=== PATIENT | female | born 1955 | race Caucasian/White ===

== ENCOUNTER → 2017-11-29 | Outpatient (CLI) | payer OTHER ==
--- NOTE | 2017-11-29 19:00 | Diagnostic Imaging Report ---
INDICATION: Right bilateral breast pain. EXAMINATION: Limited bilateral breast ultrasound. FINDINGS: By history, patient has pain in each axilla. The diagnostic mammogram performed earlier today failed to show any sign of acute abnormality or of malignancy. On this exam, there is no discrete solid or cystic mass within either axilla. There is no sign of an abscess either. IMPRESSION: There is no evidence for malignancy and there is no acute abnormality to account for the patient's pain. Clinical followup is recommended. ACR BI-RADS Category 1: Negative. Result letter will be mailed to the patient. Note: At least 10% of breast cancer is not imaged by mammography. Dictated by: Dictated on workstation # [id number]
--- NOTE | 2017-11-29 19:10 | Diagnostic Imaging Report ---
EXAMINATION: Digital mammogram bilateral diagnostic with 3D tomosynthesis. INDICATION: Bilateral axillary pain. COMPARISON: This study was compared to the prior exam of 12/21/2009. At this time, the patient does complain of pain in both axillae. The current study was also evaluated with a Computer-Aided Detection (CAD) system. FINDINGS: The fibroglandular tissue in each breast is heterogeneously dense. This does limit the sensitivity of this exam. Overall, there does not appear to have been any significant change when compared to the previous study. There is no primary or secondary sign of malignancy noted. There is no abnormality involving the axillae to account for the patient's breast pain. Even so, ultrasound would be recommended for further evaluation. IMPRESSION: There is no evidence for malignancy or for an acute abnormality of either breast. Ultrasound would be recommended for further study, however. ACR BI-RADS Category 0: Incomplete. (Needs additional imaging evaluation). Result letter will be mailed to the patient. Note: At least 10% of breast cancer is not imaged by mammography. Dictated by: Dictated on workstation # [id number]
== END ==
LOC: RAD 12:25
PROVIDERS: ATTEND Nurse Practitioner Family
DX: N64.4 Mastodynia (principal)
CPT/HCPCS: 76642; 77066

== ENCOUNTER 2020-04-16 18:11 | Inpatient (IN) | payer SELFPAY ==
[~2020-04-16] VITALS: Ht 154.9 cm; Wt 87.9 kg
--- NOTE | 2020-04-16 19:26 | ED Respiratory ---
General Chief Complaint: Respiratory Problems Stated Complaint: DX W/ PNEUMONIA/NOT GETTING BETTER Nursing Triage Note: PT AMBULATE TO ROOM 08. PT WAS CONTACTED BY THE [facility] AND TOLD TO COME TO ED BECAUSE THE "SPOT ON HER LUNG HAS GOTTEN BIGGER". PT STATES THAT SHE WAS TOLD THAT THE PNEUMONIA HAS GOTTEN WORSE AND THAT SHE SHOULD COME TO THE ED. PT REPORTS NEG COVID TEST ON SUNDAY. 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--GIVES MUCH CONFLICTING INFORMATION AND CONSTANTLY CHANGING HER STORY) History of Present Illness Date Seen by Provider: Apr 16, 2020 Time Seen by Provider: 19:05 Initial Comments PT ARRIVES VIA POV FROM HOME STATES "I DON'T FEEL SICK, I JUST HAVE A HARD TIME CATCHING MY BREATH" SYMPTOMS ONGOING FOR A WEEK ( LATER STATES 2 WEEKS, THEN LATER STATES IT HAS BEEN GOING ON "SINCE THE " HAS BEEN SEEN AT [facility] ( AGAIN GIVES EXTREMELY CONFLICTING INFORMATION ABOUT WHEN SHE WAS SEEN, WHAT TESTS WERE DONE AND WHAT TREATMENTS HAVE BEEN DONE ) --STATES "I'VE BEEN ON 3 ROUNDS OF ANTIBIOTICS" BUT HAS NO IDEA WHAT THE MEDICATIONS ARE. PT STATES SOMEONE CALLED HER AND TOLD HER TO COME HERE BECAUSE HER PNEUMONIA WAS WORSE. NO FEVER/SWEATS/CHILLS NO LOSS OF TASTE OR SMELL NO GI SYMPTOMS NO SORE THROAT NO NASAL CONGESTION NO SIGNIFICANT COUGH NO CHEST PAIN SPOKE WITH [employer] SUPERVISOR WITH [facility] AND OBTAINED THE FOLLOWIN03/26/20--PT CALLED, AND WAS HAVING COUGH AND SHORTNESS OF BREATH AND OUTPATIENT CXR WAS ORDERED. WAS DX WITH LEFT SIDED PNEUMONIA. 03/30/20--WAS PRESCRIBED LEVAQUIN 750 MG DAILY X 5 DAYS 04/06/20--PT WAS SEEN IN CLINIC FOR FOLLOW UP. WAS PRESCRIBED AUGMENTIN X 7 DAYS AND ZITHROMAX Z-PACK 04/14/20--PT WAS SEEN IN CLINIC FOR FOLLOW UP. SHE COMPLAINED OF SORE THROAT, FEVER OF 101, DECREASED ENERGY, SHORTNESS OF BREATH, NAUSEA. HAD DENIED CHANGE IN TASTE OR SMELL. PT HAD NEGATIVE RAPID COVID-19 TEST, NEGATIVE FLU TEST. HAD REPEAT CXR DONE, WAS REFERRED TO PULMONOLOGY. CXR SHOWED WORSENING OF INFILTRATES IN LEFT LUNG. PT HAS CALLED [facility] A MULTITUDE OF TIMES THIS MONTH, AND HAS MISSED AT LEAST 3 APPOINTMENTS BETWEEN 03/30 AND 04/13/20 FOR THIS PROBLEM. PT DOES STATE SHE SMOKED 2 PPD, QUIT IN 2003. ADDITIONALLY, ON QUESTIONING PT ABOUT ANY MEDICAL PROBLEMS OF ANY KIND, SHE STATES SHE "DOESN'T HAVE ANY" AND STATES SHE "DOESN'T TAKE ANY MEDICATION" PT DOES HAVE A LIST OF MEDICATIONS ON HER PHONE, WHICH INCLUDE LEVEMIR, METFORMIN, TRULICITY ( STATES THEN THAT SHE ALSO TAKES NOVOLOG ), LISINOPRIL, ATORVASTATIN. BACLOFEN, GABAPENTIN, OTHERS. PT ALSO HAS HER BLOOD SUGAR READINGS ON HER PHONE, WITH MOST IN THE 200'S TO 300'S RANGE. PCP:[facility] Allergies and Home Medications Allergies Coded Allergies: No Known Drug Allergies (Unverified , 04/16/20) Home Medications Cyanocobalamin (Vitamin B-12) 500 Mcg Lozenge, 500 MCG PO DAILY, (Reported) Gabapentin 300 Mg/6 Ml Solution, 300 MG PO HS PRN for PRN, (Reported) Insulin Aspart 100 Unit/1 Ml Susp, 25 UNIT SQ AC, (Reported) Insulin Determir 1,000 Units/10 Ml Soln, 35 UNITS SQ BID, (Reported) Lisinopril 2.5 Mg Tablet, 2.5 MG PO DAILY, (Reported) Metformin HCl 1,000 Mg Tablet, 1,000 MG PO BID, (Reported) Patient Home Medication List Home Medication List Reviewed: Yes Review of Systems Review of Systems Constitutional: see HPI EENTM: see HPI Respiratory: see HPI Cardiovascular: no symptoms reported Gastrointestinal: see HPI Genitourinary: no symptoms reported Musculoskeletal: no symptoms reported Skin: no symptoms reported Psychiatric/Neurological: See HPI Past Ikgyodi-Onkkmc-Gqjfhr Hx Past Med/Social Hx: Reviewed and Corrections made Patient Social History Alcohol Use: Denies Use Drug of Choice: DENIES Smoking Status: Former Smoker (2 PPD, QUIT 2003) Type Used: Cigarettes 2nd Hand Smoke Exposure: No Recent Infectious Disease Expo: No Recent Hopitalizations: No Seasonal Allergies Seasonal Allergies: Yes Past Medical History Surgeries: Yes Adenoidectomy, Appendectomy, Hysterectomy, Tonsillectomy Respiratory: No (SMOKED 2 PPD, QUIT 2003) Cardiac: Yes High Cholesterol, Hypertension Neurological: No HEALTH OFFICER History: Hysterectomy, Menopausal Genitourinary: No Gastrointestinal: No Musculoskeletal: Yes Chronic Back Pain, Fractures Endocrine: Yes (OBESITY) Diabetes, Insulin dep HEENT: No Cancer: No Psychosocial: Yes Anxiety Integumentary: No Blood Disorders: No Physical Exam Vital Signs - First Documented 04/16/20 19:01 Pulse 83 Resp 16 B/P (MAP) 132/84 (100) O2 Delivery Room Air Capillary Refill : Less Than 3 Seconds Height: '" Weight: lbs. oz. kg; 38.00 BMI Method: General Appearance: WD/WN, no apparent distress, other (TALKS WITHOUT DIFFICULTY. ON PHONE MOST OF ER VISIT) HEENT: PERRL/EOMI, normal ENT inspection Neck: normal inspection Respiratory: no respiratory distress, no accessory muscle use, rales (LEFT MID CHEST); No wheezing Cardiovascular: regular rate, rhythm, no murmur Gastrointestinal: non tender, soft Extremities: normal inspection, no pedal edema, normal capillary refill Neurologic/Psychiatric: no motor/sensory deficits, alert, normal mood/affect, other (GROSSLY ORIENTED, BUT WITH POOR MEMORY AND GIVES MUCH CONFLICTING INFORMATION. ) Skin: normal color, warm/dry Focused Exam Lactate Level 04/16/20 19:19: Lactic Acid Level 1.37 Lactic Acid Level Laboratory Tests Test 04/16/20 19:19 Lactic Acid Level 1.37 MMOL/L (0.50-2.00) Progress/Results/Core Measures Suspected Sepsis Recent Fever Within 48 Hours: No Infection Criteria Present: None New/Unexplained Altered Menta: No Sepsis Screen: No Definite Risk SIRS Temperature: Pulse: 83 Respiratory Rate: 16 Laboratory Tests 04/16/20 19:19: White Blood Count 12.8H Blood Pressure 132 /84 Mean: 100 04/16/20 19:19: Lactic Acid Level 1.37 Laboratory Tests 04/16/20 19:19: Creatinine 1.21, INR Comment 0.9, Platelet Count 407H, Total Bilirubin 0.6 Results/Orders Lab Results Laboratory Tests Test 04/16/20 19:19 04/16/20 19:23 Range/Units White Blood Count 12.8 H 4.3-11.0 10^3/uL Red Blood Count 5.04 3.80-5.11 10^6/uL Hemoglobin 14.0 11.5-16.0 g/dL Hematocrit 44 35-52 % Mean Corpuscular Volume 87 80-99 fL Mean Corpuscular Hemoglobin 28 25-34 pg Mean Corpuscular Hemoglobin Concent 32 32-36 g/dL Red Cell Distribution Width 13.2 10.0-14.5 % Platelet Count 407 H 130-400 10^3/uL Mean Platelet Volume 10.9 9.0-12.2 fL Immature Granulocyte % (Auto) 1 % Neutrophils (%) (Auto) 67 42-75 % Lymphocytes (%) (Auto) 25 12-44 % Monocytes (%) (Auto) 6 0-12 % Eosinophils (%) (Auto) 1 0-10 % Basophils (%) (Auto) 0 0-10 % Neutrophils # (Auto) 8.6 H 1.8-7.8 10^3/uL Lymphocytes # (Auto) 3.2 1.0-4.0 10^3/uL Monocytes # (Auto) 0.7 0.0-1.0 10^3/uL Eosinophils # (Auto) 0.2 0.0-0.3 10^3/uL Basophils # (Auto) 0.1 0.0-0.1 10^3/uL Immature Granulocyte # (Auto) 0.1 0.0-0.1 10^3/uL Prothrombin Time 12.9 12.2-14.7 SEC INR Comment 0.9 0.8-1.4 Activated Partial Thromboplast Time 27 24-35 SEC D-Dimer 2.79 H 0.00-0.49 UG/ML Sodium Level 138 135-145 MMOL/L Potassium Level 4.1 3.6-5.0 MMOL/L Chloride Level 104 98-107 MMOL/L Carbon Dioxide Level 25 21-32 MMOL/L Anion Gap 9 5-14 MMOL/L Blood Urea Nitrogen 11 7-18 MG/DL Creatinine 1.21 0.60-1.30 MG/DL Estimat Glomerular Filtration Rate 45 BUN/Creatinine Ratio 9 Glucose Level 206 H 70-105 MG/DL Lactic Acid Level 1.37 0.50-2.00 MMOL/L Calcium Level 8.9 8.5-10.1 MG/DL Corrected Calcium 8.9 8.5-10.1 MG/DL Magnesium Level 2.1 1.6-2.4 MG/DL Total Bilirubin 0.6 0.1-1.0 MG/DL Aspartate Amino Transf (AST/SGOT) 16 5-34 U/L Alanine Aminotransferase (ALT/SGPT) 23 0-55 U/L Alkaline Phosphatase 93 40-136 U/L Lactate Dehydrogenase 136 125-220 U/L Total Creatine Kinase 47 29-168 U/L Creatine Kinase MB 1.0 <6.6 NG/ML Myoglobin 29.3 10.0-92.0 NG/ML Troponin I < 0.028 <0.028 NG/ML C-Reactive Protein High Sensitivity 1.34 H 0.00-0.50 MG/DL B-Type Natriuretic Peptide 22.2 <100.0 PG/ML Total Protein 7.3 6.4-8.2 GM/DL Albumin 4.0 3.2-4.5 GM/DL Procalcitonin 0.04 <0.10 NG/ML Coronavirus 2019 ([facility]) Negative Negative Micro Results Microbiology 04/16/20 Influenza Types A,B Antigen ([facility]) - Final, Complete My Orders Orders - GOPI RODRIGUES DO Ed Iv/Invasive Line Start (04/16/20 19:07) Ekg Tracing (04/16/20 19:07) O2 (04/16/20 19:07) Monitor-Rhythm Ecg Trace Only (04/16/20:07) Cbc With Automated Diff (04/16/20:07) Comprehensive Metabolic Panel (04/16/20 19:07) Fibrin Degradation Products (04/16/20 19:07) Procalcitonin (Pct) (04/16/20 19:07) Hs C Reactive Protein (04/16/20 19:07) Erythrocyte Sedimentation Rate (04/16/20 19:07) LDH (04/16/20 19:07) Blood Culture (04/16/20 19:07) Influenza A And B Antigens (04/16/20 19:07) Chest 1 View, Ap/Pa Only (04/16/20 19:07) Covid 19 Inhouse Test (04/16/20 19:07) Urinalysis (04/16/20 19:07) Urine Culture (04/16/20 19:07) Protime With Inr (04/16/20 19:07) Partial Thromboplastin Time (04/16/20 19:07) Vital Signs Adult Sepsis Patie Q15M (04/16/20 19:07) Remove Rings In Anticipation O (04/16/20 19:07) Lactic Acid Analyzer (04/16/20 19:07) BNP (04/16/20:26) Creatine Kinase (2/26/21 19:26) Creatine Kinase Mb (04/16/20 19:26) Magnesium (04/16/20 19:26) Myoglobin Serum (04/16/20 19:26) Troponin I (04/16/20 19:26) Ct Angio Chest W (04/16/20 20:33) Cefepime Injection (Maxipime Injection) (04/16/20 20:45) Iohexol Injection (Omnipaque 350 Mg/Ml 1 (04/16/20 20:45) Received Contrast (Hold Metformin- Contr (04/16/20 20:45) Ns (Ivpb) (Sodium Chloride 0.9% Ivpb Bag (04/16/20 20:45) Covid-19 Igg Only So (04/16/20 21:23) Methylprednisolone Sod Succ (Solu-Medrol (04/16/20 21:30) Apixaban Tablet (Eliquis Tablet) (04/16/20 21:30) Medications Given in ED Current Medications Medications Dose Ordered Sig/Kaz Route Start Time Stop Time Status Last Admin Dose Admin Apixaban 5 mg ONCE ONCE PO 04/16/20 21:30 04/16/20 21:31 DC 04/16/20 21:46 5 MG Cefepime HCl 2000 mg/Sterile Water 20 ml @ 240 mls/hr ONCE ONCE IV 04/16/20 20:45 04/16/20 20:49 DC 04/16/20 21:07 240 MLS/HR Iohexol 100 ml ONCE ONCE IV 04/16/20 20:45 04/16/20 21:16 DC 04/16/20 20:56 84 ML Methylprednisolone Sodium Succinate 40 mg ONCE ONCE IV 04/16/20 21:30 04/16/20 21:31 DC 04/16/20 21:45 40 MG Sodium Chloride 100 ml ONCE ONCE IV 04/16/20 20:45 04/16/20 21:16 DC 04/16/20 20:56 100 ML Vital Signs/I&O 04/16/20 19:01 Pulse 83 Resp 16 B/P (MAP) 132/84 (100) O2 Delivery Room Air 04/16/20 23:59 Intake Total 20 ml Balance 20 ml Capillary Refill : Less Than 3 Seconds Blood Pressure Mean: 100 Progress Note : Progress Note PLACED IN ISOLATION ROOM PPE WORN AT ALL TIMES COVID-19 TESTING PERFORMED UNEVENTFUL ER STAY VITAL STABLE PT HAD NO COMPLAINTS OF ANY KIND FOR ENTIRE ER STAY. NO COUGH, NO DYSPNEA, NO HYPOXIA ECG Initial ECG Impression Date: Apr 16, 2020 Initial ECG Impression Time: 19:25 Initial ECG Rate: 77 Initial ECG Rhythm: Normal Sinus Diagnostic Imaging Comments CXR--PER RADIOLOGIST REPORT AT 2031 FINDINGS: Airspace opacities in the peripheral left lung are noted. Lung volumes are normal. An azygos fissure is noted. There is calcific atherosclerosis. The heart is normal in size. There is no pleural effusion or pneumothorax. IMPRESSION: Peripheral left upper lobe airspace opacities consistent with pneumonia. CT CHEST ANGIOGRAM--PER RADIOLOGIST REPORT AT 2117 FINDINGS: The pulmonary arteries are diagnostic to the proximal segmental level. No filling defects are seen to indicate a pulmonary embolus. An azygos fissure is noted. The heart is normal in size. There is no pericardial effusion. No mediastinal adenopathy is seen. There is no pleural effusion or pneumothorax. Multifocal airspace opacities and groundglass opacities are seen, bilaterally, most pronounced in the left upper lobe. This is most consistent with pneumonia. No acute osseous abnormality is seen. Imaged portions of the upper abdomen demonstrate no acute abnormality. IMPRESSION: 1. No pulmonary embolus. 2. Multifocal airspace and ground glass opacity, most pronounced in the left upper lobe, consistent with pneumonia. Reviewed: Reviewed by Me Departure Communication (Admissions) 2118--SPOKE WITH DR. DALY, HOSPITALIST CHIEF PRIVACY OFFICER FOR [facility]. ACCEPTS PT FOR ADM IT. ORDERS NOTED. Impression Primary Impression: LEFT SIDED PNEUMONIA Additional Impressions: Failure of outpatient treatment IDDM (insulin dependent diabetes mellitus) Disposition: ADMITTED INPATIENT Condition: Stable Admissions Decision to Admit Reason: Admit from ER (General) Decision to Admit/Date: Apr 16, 2020 Time/Decision to Admit Time: 21:20 Departure-Patient Inst. Referrals: NO,LOCAL PHYSICIAN (PCP) Primary Care Physician CELENA REYEZ (Family) Primary Care Physician GOPI RODRIGUES DO Apr 16, 2020 19:26
[2020-04-16 19:36] LABS: BASOPHILS # (AUTO) 0.1 10^3/uL (0.0-0.1); BASOPHILS % (AUTO) 0 % (0-10); EOSINOPHILS # (AUTO) 0.2 10^3/uL (0.0-0.3); EOSINOPHILS % (AUTO) 1 % (0-10); HEMATOCRIT 44 % (35-52); LYMPHOCYTES # (AUTO) 3.2 10^3/uL (1.0-4.0); LYMPHOCYTES % (AUTO) 25 % (12-44); MEAN CORPUSCULAR HEMOGLOBIN 28 pg (25-34); MEAN CORPUSCULAR HGB CONC 32 g/dL (32-36); MEAN CORPUSCULAR VOLUME 87 fL (80-99); MEAN PLATELET VOLUME 10.9 fL (9.0-12.2); MONOCYTES # (AUTO) 0.7 10^3/uL (0.0-1.0); MONOCYTES % (AUTO) 6 % (0-12); NEUTROPHILS # (AUTO) 8.6 10^3/uL (1.8-7.8); NEUTROPHILS % (AUTO) 67 % (42-75); PLATELET COUNT 407 10^3/uL (130-400); WHITE BLOOD COUNT 12.8 10^3/uL (4.3-11.0)
[2020-04-16 19:45] LABS: CHLORIDE 104 MMOL/L (98-107); POTASSIUM 4.1 MMOL/L (3.6-5.0); SODIUM 138 MMOL/L (135-145)
[2020-04-16 19:46] LABS: CALCIUM 8.9 MG/DL (8.5-10.1)
[2020-04-16 19:47] LABS: GLUCOSE 206 MG/DL (70-105); TOTAL PROTEIN 7.3 GM/DL (6.4-8.2)
[2020-04-16 19:48] LABS: CARBON DIOXIDE 25 MMOL/L (21-32)
[2020-04-16 19:49] LABS: BILIRUBIN,TOTAL 0.6 MG/DL (0.1-1.0)
[2020-04-16 19:50] LABS: FIBRIN DEGRADATION PRODUCTS 2.79 UG/ML (0.00-0.49); INR 0.9 (0.8-1.4); PROTHROMBIN TIME PATIENT 12.9 SEC (12.2-14.7)
[2020-04-16 19:51] LABS: ALKALINE PHOSPHATASE 93 U/L (40-136); CREATININE SERUM 1.21 MG/DL (0.60-1.30); GFR ESTIMATED 45
[2020-04-16 19:52] LABS: BUN/CREATININE RATIO 9
[2020-04-16 19:54] LABS: ALANINE AMINOTRANSFERASE 23 U/L (0-55); CREATINE KINASE 47 U/L (29-168); MAGNESIUM 2.1 MG/DL (1.6-2.4)
--- NOTE | 2020-04-16 20:15 | Diagnostic Imaging Report ---
HISTORY: Dyspnea, diagnosed with pneumonia recently. COMPARISON: None. TECHNIQUE: Frontal view of the chest. FINDINGS: Airspace opacities in the peripheral left lung are noted. Lung volumes are normal. An azygos fissure is noted. There is calcific atherosclerosis. The heart is normal in size. There is no pleural effusion or pneumothorax. IMPRESSION: Peripheral left upper lobe airspace opacities consistent with pneumonia. Dictated by: Dictated on workstation # [id number]
[2020-04-16] MEDS ORDERED: HOLD METFORMIN - RECEIVED CONTRAST 20 ML VIAL IV SCH (20:45)
[2020-04-16] MEDS ORDERED: CEFEPIME INJECTION 2,000 MG in WATER (STERILE) FOR INJECTION 20 ML IV ONE (20:45)
[2020-04-16] MEDS ORDERED: IOHEXOL 350 MG/ML 100 ML (OMNIPAQUE 350) VIAL IV ONE (20:45)
[2020-04-16] MEDS ORDERED: NS 100 ML (IVPB) BAG IV ONE (20:45)
--- NOTE | 2020-04-16 21:16 | Diagnostic Imaging Report ---
PROCEDURE: CT angiography of the chest with contrast. TECHNIQUE: Multiple contiguous axial images were obtained through the chest after uneventful bolus administration of intravenous contrast. 3D reconstructed CTA MIP acquisitions were also performed. Auto Exposure Controls were utilized during the CT exam to meet ALARA standards for radiation dose reduction. INDICATION: High probability of PE. Dyspnea. COMPARISON: Radiographs from the same day. FINDINGS: The pulmonary arteries are diagnostic to the proximal segmental level. No filling defects are seen to indicate a pulmonary embolus. An azygos fissure is noted. The heart is normal in size. There is no pericardial effusion. No mediastinal adenopathy is seen. There is no pleural effusion or pneumothorax. Multifocal airspace opacities and groundglass opacities are seen, bilaterally, most pronounced in the left upper lobe. This is most consistent with pneumonia. No acute osseous abnormality is seen. Imaged portions of the upper abdomen demonstrate no acute abnormality. IMPRESSION: 1. No pulmonary embolus. 2. Multifocal airspace and ground glass opacity, most pronounced in the left upper lobe, consistent with pneumonia. Dictated by: Dictated on workstation # [id number]
[2020-04-16] MEDS ORDERED: methylPREDNISolone 40 MG/ML (Solu-MEDROL) VIAL IV ONE (21:30)
[2020-04-16] MEDS ORDERED: APIXABAN 5 MG (ELIQUIS) TABLET PO ONE (21:30)
[2020-04-16 22:33] VITALS: BP 151/79
[2020-04-16 22:33] LABS: ABG BASE EXCESS 0.7 MMOL/L (-2.5-2.5); ABG OXYGEN SATURATION 46 % (94-100); ABG PCO2 43 MMHG (35-45); ABG PH 7.39 (7.37-7.43); ABG TCO2 26.6 MMOL/L (21.0-31.0)
[2020-04-16 22:34] LABS: INSPIRED O2 RA; VENTILATOR NO
[2020-04-16 22:35] LABS: PATIENT TEMP 36.2
[2020-04-16 22:36] LABS: ABG PO2 32 MMHG (79-93)
[2020-04-16] MEDS ORDERED: ACETAMINOPHEN 500 MG TAB (TYLENOL) PO PRN (22:45)
[2020-04-16] MEDS ORDERED: ONDANSETRON 4 MG/2 ML (SDV) Z0FRAN IVP PRN (22:45)
[2020-04-16] MEDS: NS IV 1000 ML 1,000 ML IV SCH (23:05)
[2020-04-16] MEDS ORDERED: INSU100V5 SQ (23:10)
[2020-04-16] MEDS ORDERED: LISI2.5T PO (23:10)
[2020-04-16] MEDS ORDERED: GABA300S2 PO (23:10)
[2020-04-16] MEDS ORDERED: METF-399 PO (23:10)
[2020-04-16] MEDS ORDERED: CYAN500L PO (23:10)
[2020-04-16] MEDS ORDERED: INSU100V16 SQ (23:10)
[2020-04-17] VITALS (10 sets, daily range): BP systolic 92–141; BP diastolic 49–84
[2020-04-17] MEDS: CEFEPIME 1,000 MG/SWFI 10 ML IV PUSH IV SCH ×6 (05:34→21:29)
[2020-04-17] MEDS: NS IV 1000 ML 1,000 ML IV SCH (05:34)
[2020-04-17 05:56] LABS: BASOPHILS % (AUTO) 0 % (0-10); EOSINOPHILS % (AUTO) 0 % (0-10); HEMATOCRIT 41 % (35-52); HEMOGLOBIN 12.8 g/dL (11.5-16.0); LYMPHOCYTES % (AUTO) 8 % (12-44); MEAN CORPUSCULAR HEMOGLOBIN 28 pg (25-34); MEAN CORPUSCULAR HGB CONC 32 g/dL (32-36); MEAN CORPUSCULAR VOLUME 88 fL (80-99); MEAN PLATELET VOLUME 11.1 fL (9.0-12.2); MONOCYTES # (AUTO) 0.1 10^3/uL (0.0-1.0); MONOCYTES % (AUTO) 1 % (0-12); NEUTROPHILS # (AUTO) 10.9 10^3/uL (1.8-7.8); NEUTROPHILS % (AUTO) 90 % (42-75); PLATELET COUNT 382 10^3/uL (130-400); WHITE BLOOD COUNT 12.1 10^3/uL (4.3-11.0)
[2020-04-17 06:26] LABS: ALBUMIN 3.6 GM/DL (3.2-4.5); POTASSIUM 4.4 MMOL/L (3.6-5.0)
[2020-04-17 06:27] LABS: CALCIUM 8.5 MG/DL (8.5-10.1)
[2020-04-17 06:28] LABS: TOTAL PROTEIN 6.8 GM/DL (6.4-8.2)
[2020-04-17 06:30] LABS: BILIRUBIN,TOTAL 0.5 MG/DL (0.1-1.0)
[2020-04-17 06:32] LABS: CREATININE SERUM 1.14 MG/DL (0.60-1.30)
[2020-04-17] MEDS: inSUlin ASPART (NovoLOG) 1 UNIT/0.01 ML (CHARGE PER UNIT) SC SCH ×4 (06:43→21:29)
[2020-04-17 06:44] LABS: ATYPICAL LYMPHOCYTES 1 %; BAND NEUTROPHILS 2 %; LYMPHOCYTES % (MANUAL) 11 %; MONOCYTES % (MANUAL) 1 %; NEUTROPHILS % (MANUAL) 85 %; RBC MORPH NORMAL
--- NOTE | 2020-04-17 07:19 | History & Physical-Hospitalist ---
History of Present Illness HPI/Chief Complaint CC: Dyspnea HPI: This is a 65yoWF clinic patient of [facility] who presented to the ER with dyspnea. Patient has completed 3 rounds of abx from [facility] and continues to have dyspnea. Elevated d-dimer in the ER prompted CT chest which revealed no evidence of PE but appearance suggesting prior COVID PNA but she has been tested 3 times all negative swabs. IgG for COVID-19 drawn. IV steroids are helping her along with empiric abx. Will HLIVF and DC Tely. Eliquis initiated for elevated d-dimer at high risk for thrombosis. Date Seen 04/17/20 Time Seen by a Provider: 11:30 Attending Physician Socorro Rodriguez DO [facility] Referring Physician Date of Admission Apr 16, 2020 at 21:40 Home Medications & Allergies Home Medications Reviewed patient Home Medication Reconciliation performed by pharmacy medication reconciliations light technician and/or nursing. Patients Allergies have been reviewed. Allergies Allergies Coded Allergies No Known Drug Allergies (Unverified04/16/20) Past Bmlkodx-Yytsqi-Ilgewq Hx Past Med/Social Hx: Reviewed Nursing Past Med/Soc Hx, Reviewed and Corrections made Patient Social History Marrital Status: Employed/Student: unemployed Alcohol Use: Denies Use Recreational Drug Use: No Drug of Choice: DENIES Smoking Status: Former Smoker (2 PPD, QUIT 2003) Type Used: Cigarettes 2nd Hand Smoke Exposure: No Recent Foreign Travel: No Contact w/other who traveled: No Recent Hopitalizations: No Recent Infectious Disease Expo: No Immunizations Up To Date Date of Influenza Vaccine: Nov 20, 2019 Seasonal Allergies Seasonal Allergies: Yes Past Medical History Surgeries: Adenoidectomy, Appendectomy, Hysterectomy, Tonsillectomy Cardiac: High Cholesterol, Hypertension Hysterectomy, Menopausal Musculoskeletal: Chronic Back Pain, Fractures Endocrine: Diabetes, Insulin dep Psychosocial: Anxiety History of Blood Disorders: No Review of Systems Constitutional: see HPI Respiratory: dyspnea on exertion Physical Exam Physical Exam Vital Signs Vital Signs - First Documented 04/16/20 04/16/20 04/16/20 04/17/20 19:01 22:21 22:33 02:20 Temp 36.0 Pulse 83 Resp 16 B/P (MAP) 132/84 (100) Pulse Ox 95 O2 Delivery Room Air FiO2 21 Capillary Refill : Less Than 3 Seconds Height, Weight, BMI Height: '" Weight: lbs. oz. kg; 36.63 BMI Method: General Appearance: No Apparent Distress, Chronically ill, Obese Eyes: Right Eye Normal Inspection, Right Eye PERRL HEENT: PERRL/EOMI, Normal ENT Inspection, Pharynx Normal, Moist Mucous Membranes Neck: Full Range of Motion, Normal Inspection, Non Tender Respiratory: Chest Non Tender, Lungs Clear, Normal Breath Sounds, No Accessory Muscle Use, No Respiratory Distress Cardiovascular: Regular Rate, Rhythm, No Edema, No Gallop, No JVD, No Murmur, Normal Peripheral Pulses Gastrointestinal: Normal Bowel Sounds, No Organomegaly, No Pulsatile Mass, Non Tender, Soft Back: Normal Inspection, No CVA Tenderness, No Vertebral Tenderness Extremity: Normal Capillary Refill, Normal Inspection, Normal Range of Motion, Non Tender, No Calf Tenderness, No Pedal Edema Neurologic/Psychiatric: Alert, Oriented x3, No Motor/Sensory Deficits, Normal Mood/Affect Skin: Normal Color, Warm/Dry Lymphatic: No Adenopathy Results Results/Procedures Labs Laboratory Tests 04/16/20 19:19 04/17/20 05:35 Patient resulted labs reviewed. Assessment/Plan Admission Diagnosis Assessment: recurrent PNA failed [address] chest suggesting prior COVID but 3 swabs negative so judy IgG COVID-19 Former smoker DM OOC due to steroids HTN HLP Elevated d-dimer Plan: Home meds DC Tely HLIVF Steroids IV abx Eliquis Admission Status: Inpatient Order (span 2 midnights) Reason for Inpatient Admission: failed PO abx 3 rounds Diagnosis/Problems Diagnosis/Problems (1) Pneumonia (2) Failure of outpatient treatment Status: Acute (3) IDDM (insulin dependent diabetes mellitus) Status: Acute SOCORRO RODRIGUEZ DO Apr 17, 2020 07:19
[2020-04-17] MEDS ORDERED: GABA300C PO (07:54)
[2020-04-17] MEDS: APIXABAN 5 MG (ELIQUIS) TABLET PO SCH ×2 (08:00→21:29)
[2020-04-17] MEDS: methylPREDNISolone 40 MG/ML (Solu-MEDROL) VIAL IV SCH ×2 (08:00→21:29)
[2020-04-17 12:16] LABS: BILIRUBIN,URINE NEGATIVE (NEGATIVE); CLARITY,URINE CLEAR; COLOR,URINE YELLOW; GLUCOSE, URINE (UA) 2+ (NEGATIVE); KETONES,URINE NEGATIVE (NEGATIVE); LEUKOCYTE ESTERASE ,URINE 1+ (NEGATIVE); NITRITE,URINE NEGATIVE (NEGATIVE); PROTEIN,URINE NEGATIVE (NEGATIVE)
[2020-04-17 12:22] LABS: BACTERIA,URINE TRACE /HPF
[2020-04-17 14:09] LABS: ERYTHROCYTE SEDIMENTATION RATE 17 MM/HR (0-30)
[2020-04-17] MEDS ORDERED: GABAPENTIN 300 MG (NEURONTIN) CAP PO PRN (17:00)
[2020-04-17] MEDS: inSUlin ASPART (NovoLOG) 1 UNIT/0.01 ML (CHARGE PER UNIT) SQ SCH (18:00)
[2020-04-17] MEDS ORDERED: NON-FORMULARY MEDICATION 1 EA EA (Metformin HCl 1,000 MG) PO SCH (21:00)
[2020-04-18 04:05] VITALS: BP 129/67
[2020-04-18] MEDS: CYANOCOBALAMIN 1,000 MCG (VITAMIN B-12) TABLET PO SCH (06:29)
[2020-04-18] MEDS: CEFEPIME 1,000 MG/SWFI 10 ML IV PUSH IV SCH ×6 (06:29→21:35)
[2020-04-18 07:23] LABS: BASOPHILS % (AUTO) 0 % (0-10); EOSINOPHILS % (AUTO) 0 % (0-10); HEMATOCRIT 40 % (35-52); HEMOGLOBIN 12.5 g/dL (11.5-16.0); LYMPHOCYTES # (AUTO) 1.6 10^3/uL (1.0-4.0); LYMPHOCYTES % (AUTO) 7 % (12-44); MEAN CORPUSCULAR HEMOGLOBIN 28 pg (25-34); MEAN CORPUSCULAR HGB CONC 32 g/dL (32-36); MEAN CORPUSCULAR VOLUME 89 fL (80-99); MEAN PLATELET VOLUME 11.5 fL (9.0-12.2); MONOCYTES # (AUTO) 0.4 10^3/uL (0.0-1.0); MONOCYTES % (AUTO) 2 % (0-12); NEUTROPHILS # (AUTO) 20.6 10^3/uL (1.8-7.8); NEUTROPHILS % (AUTO) 90 % (42-75); PLATELET COUNT 389 10^3/uL (130-400); WHITE BLOOD COUNT 22.9 10^3/uL (4.3-11.0)
[2020-04-18 07:31] LABS: ALBUMIN 3.5 GM/DL (3.2-4.5); POTASSIUM 4.4 MMOL/L (3.6-5.0)
[2020-04-18 07:32] LABS: CALCIUM 8.7 MG/DL (8.5-10.1)
[2020-04-18 07:33] LABS: TOTAL PROTEIN 6.4 GM/DL (6.4-8.2)
[2020-04-18 07:35] LABS: BILIRUBIN,TOTAL 0.3 MG/DL (0.1-1.0)
[2020-04-18 07:37] LABS: CREATININE SERUM 1.11 MG/DL (0.60-1.30)
[2020-04-18 07:38] LABS: LYMPHOCYTES % (MANUAL) 6 %; MONOCYTES % (MANUAL) 3 %; NEUTROPHILS % (MANUAL) 91 %
[2020-04-18 07:39] LABS: RBC MORPH NORMAL
[2020-04-18 07:41] VITALS: BP 104/54
[2020-04-18] MEDS: methylPREDNISolone 40 MG/ML (Solu-MEDROL) VIAL IV SCH (08:33)
[2020-04-18] MEDS: fluCOnazole (DIFLUCAN) 100 MG TAB PO SCH (08:33)
[2020-04-18] MEDS: inSUlin ASPART (NovoLOG) 1 UNIT/0.01 ML (CHARGE PER UNIT) SQ SCH ×3 (08:33→17:47)
[2020-04-18] MEDS: inSUlin ASPART (NovoLOG) 1 UNIT/0.01 ML (CHARGE PER UNIT) SC SCH ×4 (08:33→21:35)
[2020-04-18] MEDS: APIXABAN 5 MG (ELIQUIS) TABLET PO SCH ×2 (08:34→21:35)
[2020-04-18] MEDS: lisINopril 5 MG (PRINIVIL) TABLET PO SCH (08:34)
[2020-04-18 11:30] VITALS: BP 121/59
--- NOTE | 2020-04-18 12:39 | Progress Note - Hospitalist ---
Subjective HPI/CC On Admission Date Seen by Provider: Apr 18, 2020 Time Seen by Provider: 12:00 CC: Dyspnea HPI: This is a 65yoWF clinic patient of [facility] who presented to the ER with dyspnea. Patient has completed 3 rounds of abx from [facility] and continues to have dyspnea. Elevated d-dimer in the ER prompted CT chest which revealed no evidence of PE but appearance suggesting prior COVID PNA but she has been tested 3 times all negative swabs. IgG for COVID-19 drawn. IV steroids are helping her along with empiric abx. Will HLIVF and DC Tely. Eliquis initiated for elevated d-dimer at high risk for thrombosis. Subjective/Events-last exam Patient improved Improved breathing WBC 22k so will dc steroids and recheck labs and CXR tomorrow DC tomorrow is planned IgG back tomorrow Review of Systems General: Fatigue Focused Exam Lactate Level 04/16/20 19:19: Lactic Acid Level 1.37 Objective Exam Vital Signs Vital Signs Date Time Temp Pulse Resp B/P (MAP) Pulse Ox O2 Delivery O2 Flow Rate FiO2 04/18/20 11:30 35.8 76 18 121/59 (79) 94 Room Air 04/17/20 02:20 21 Capillary Refill : Less Than 3 Seconds General Appearance: No Apparent Distress, WD/WN, Chronically ill Respiratory: Chest Non Tender, Lungs Clear, Normal Breath Sounds, No Accessory Muscle Use, No Respiratory Distress Cardiovascular: Regular Rate, Rhythm, No Edema, No Gallop, No JVD, No Murmur, Normal Peripheral Pulses Neurologic/Psychiatric: Alert, Oriented x3, No Motor/Sensory Deficits, Normal Mood/Affect Results/Procedures Lab Laboratory Tests 04/18/20 06:45 Patient resulted labs reviewed. Assessment/Plan Assessment and Plan Assess & Plan/Chief Complaint Assessment: Recurrent PNA failed [address] chest suggesting prior COVID but 3 swabs negative so judy IgG COVID-19 Former smoker DM OOC due to steroids HTN HLP Elevated d-dimer Plan: Home meds DC Tely HLIVF Steroids IV abx Eliquis 04/18/20: DC IV steroids ICS Singulair Claritin DC tomorrow Diagnosis/Problems Diagnosis/Problems (1) Pneumonia (2) Failure of outpatient treatment Status: Acute (3) IDDM (insulin dependent diabetes mellitus) Status: Acute JONATAN DALY DO Apr 18, 2020 12:39
[2020-04-18] MEDS ORDERED: LORATADINE (CLARITIN) 10 MG TAB PO ONE (12:45)
[2020-04-18 16:00] VITALS: BP 123/60
[2020-04-18] MEDS: ADVAIR HFA 115/21 MCG INHALER 8 GM IH SCH (17:44)
[2020-04-18 20:00] VITALS: BP 116/54
[2020-04-18] MEDS: MONTELUKAST 10 MG (SINGULAIR) TAB PO SCH (21:35)
[2020-04-19] VITALS: BP 109/53
[2020-04-19] MEDS: inSUlin ASPART (NovoLOG) 1 UNIT/0.01 ML (CHARGE PER UNIT) SC SCH ×4 (05:54→20:20)
[2020-04-19 05:57] LABS: BASOPHILS # (AUTO) 0.1 10^3/uL (0.0-0.1); BASOPHILS % (AUTO) 0 % (0-10); EOSINOPHILS % (AUTO) 0 % (0-10); HEMATOCRIT 42 % (35-52); HEMOGLOBIN 13.3 g/dL (11.5-16.0); LYMPHOCYTES # (AUTO) 4.6 10^3/uL (1.0-4.0); LYMPHOCYTES % (AUTO) 18 % (12-44); MEAN CORPUSCULAR HEMOGLOBIN 28 pg (25-34); MEAN CORPUSCULAR HGB CONC 31 g/dL (32-36); MEAN CORPUSCULAR VOLUME 90 fL (80-99); MEAN PLATELET VOLUME 11.5 fL (9.0-12.2); MONOCYTES # (AUTO) 1.5 10^3/uL (0.0-1.0); MONOCYTES % (AUTO) 6 % (0-12); NEUTROPHILS # (AUTO) 18.9 10^3/uL (1.8-7.8); NEUTROPHILS % (AUTO) 74 % (42-75); PLATELET COUNT 346 10^3/uL (130-400); WHITE BLOOD COUNT 25.5 10^3/uL (4.3-11.0)
[2020-04-19 06:12] LABS: ALBUMIN 3.5 GM/DL (3.2-4.5)
[2020-04-19 06:13] LABS: POTASSIUM 4.4 MMOL/L (3.6-5.0)
[2020-04-19 06:14] LABS: CALCIUM 8.8 MG/DL (8.5-10.1)
[2020-04-19 06:15] LABS: TOTAL PROTEIN 6.5 GM/DL (6.4-8.2)
[2020-04-19 06:17] LABS: BILIRUBIN,TOTAL 0.3 MG/DL (0.1-1.0)
[2020-04-19 06:19] LABS: CREATININE SERUM 1.09 MG/DL (0.60-1.30)
[2020-04-19] MEDS: predniSONE 20 MG TAB PO SCH (06:31)
[2020-04-19] MEDS: CYANOCOBALAMIN 1,000 MCG (VITAMIN B-12) TABLET PO SCH (06:31)
[2020-04-19] MEDS: CEFEPIME 1,000 MG/SWFI 10 ML IV PUSH IV SCH ×6 (06:31→20:59)
[2020-04-19] MEDS: ADVAIR HFA 115/21 MCG INHALER 8 GM IH SCH ×2 (06:47→19:28)
[2020-04-19] MEDS ORDERED: PHARMACY TO DOSE IV SCH (07:00)
--- NOTE | 2020-04-19 07:11 | Pulmonary Consultation ---
History of Present Illness History of Present Illness Date Seen by Provider: Apr 19, 2020 Time Seen by Provider: 07:06 Date of Admission Allergies and Home Medications Allergies Coded Allergies: No Known Drug Allergies (Unverified , 04/16/20) Home Medications Cyanocobalamin (Vitamin B-12) 500 Mcg Lozenge, 500 MCG PO DAILY, (Reported) Gabapentin 300 Mg Capsule, 300 MG PO HS PRN for LEG CRAMPS, (Reported) Insulin Aspart 100 Unit/1 Ml Susp, 25 UNIT SQ AC, (Reported) Insulin Determir 1,000 Units/10 Ml Soln, 35 UNITS SQ BID, (Reported) Lisinopril 2.5 Mg Tablet, 2.5 MG PO DAILY, (Reported) Metformin HCl 1,000 Mg Tablet, 1,000 MG PO BID, (Reported) Past Hshrdop-Lycrqd-Nynrmn Hx Past Med/Social Hx: Reviewed Nursing Past Med/Soc Hx, Reviewed and Corrections made Patient Social History Alcohol Use: Denies Use Drug of Choice: DENIES Smoking Status: Former Smoker (2 PPD, QUIT 2003) Type Used: Cigarettes 2nd Hand Smoke Exposure: No Recent Infectious Disease Expo: No Recent Hopitalizations: No Have you traveled recently?: No Alcohol Use?: No Immunizations Up To Date Date of Influenza Vaccine: Nov 20, 2019 Seasonal Allergies Seasonal Allergies: Yes Past Medical History Surgeries: Yes Adenoidectomy, Appendectomy, Hysterectomy, Tonsillectomy Respiratory: No (SMOKED 2 PPD, QUIT 2003) Cardiac: Yes High Cholesterol, Hypertension Neurological: No [employer] History: Hysterectomy, Menopausal Genitourinary: No Gastrointestinal: No Musculoskeletal: Yes Chronic Back Pain, Fractures Endocrine: Yes (OBESITY) Diabetes, Insulin dep HEENT: No Cancer: No Psychosocial: Yes Anxiety Integumentary: No Blood Disorders: No Review of Systems Time Seen by Provider: 07:11 Sepsis Event Evaluation Height, Weight, BMI Height: '" Weight: lbs. oz. kg; 36.63 BMI Method: Exam Exam Vital Signs Date Time Temp Pulse Resp B/P (MAP) Pulse Ox O2 Delivery O2 Flow Rate FiO2 04/19/20 06:47 93 Room Air 04/19/20 00:00 35.8 71 18 109/53 (71) 93 Room Air 04/18/20 20:04 Room Air 04/18/20 20:00 36.2 76 18 116/54 (74) 94 Room Air 04/18/20 17:44 95 Room Air 04/18/20 16:00 36.2 85 18 123/60 (81) 95 Room Air 04/18/20 11:30 35.8 76 18 121/59 (79) 94 Room Air 04/18/20 08:00 96 Room Air 04/18/20 07:41 36.6 74 18 104/54 (71) 92 Room Air 04/18/20 07:26 Room Air I & O 04/19/20 07:00 Intake Total 2335 ml Output Total 2640 ml Balance -305 ml Height & Weight Height: '" Weight: lbs. oz. kg; 36.63 BMI Method: General Appearance: No Apparent Distress, WD/WN, Chronically ill HEENT: PERRL/EOMI, Normal ENT Inspection, Pharynx Normal, Moist Mucous Membranes Neck: Full Range of Motion, Normal Inspection, Non Tender Respiratory: Chest Non Tender, Lungs Clear, Normal Breath Sounds, No Accessory Muscle Use, No Respiratory Distress Cardiovascular: Regular Rate, Rhythm, No Edema, No Gallop, No JVD, No Murmur, Normal Peripheral Pulses Capillary Refill: Less Than 3 Seconds Gastrointestinal: non tender, soft Extremity: Normal Capillary Refill, Normal Inspection, Normal Range of Motion, Non Tender, No Calf Tenderness, No Pedal Edema Neurologic/Psychiatric: Alert, Oriented x3, No Motor/Sensory Deficits, Normal M ood/Affect Skin: Normal Color, Warm/Dry Lymphatic: No Adenopathy Results Lab Laboratory Tests 04/18/20 06:45 04/19/20 05:15 Assessment/Plan Assessment/Plan recurrent PNA - failed 3 rounds of abx -COVID is negative -COVID ab is pending -CT of chest reviewed Worsening leukocytosis-- possibly secondary to steroids -Repeat PCT and CXR -Check MRSA nasal swab -Start Vanco for now -Check [place] Hx of tobacco use JAIME ROLDAN DO Apr 19, 2020 07:11
[2020-04-19 07:19] LABS: PHOSPHORUS 4.9 MG/DL (2.3-4.7)
[2020-04-19 07:21] LABS: MAGNESIUM 2.3 MG/DL (1.6-2.4)
[2020-04-19] MEDS ORDERED: VANCOMYCIN 1,750 MG/NS 500 ML IVPB IV NR ×2 (07:30)
[2020-04-19] MEDS: lisINopril 5 MG (PRINIVIL) TABLET PO SCH (07:38)
[2020-04-19] MEDS: inSUlin ASPART (NovoLOG) 1 UNIT/0.01 ML (CHARGE PER UNIT) SQ SCH ×3 (07:38→16:28)
[2020-04-19] MEDS: fluCOnazole (DIFLUCAN) 100 MG TAB PO SCH (07:38)
[2020-04-19] MEDS: LORATADINE (CLARITIN) 10 MG TAB PO SCH (07:38)
[2020-04-19] MEDS: APIXABAN 5 MG (ELIQUIS) TABLET PO SCH ×2 (07:39→19:44)
[2020-04-19 07:51] VITALS: BP 124/74
[2020-04-19] MEDS ORDERED: metFORMIN 500 MG (GLUCOPHAGE) TAB PO SCH (08:00)
--- NOTE | 2020-04-19 09:25 | Diagnostic Imaging Report ---
INDICATION: Pneumonia PA and lateral views of the chest obtained with comparison made to study of 04/16/2020. Heart size and pulmonary vascularity are within normal limits. There has been an increase in airspace disease in the left upper lobe which likely represents pneumonia. There is slight left basilar atelectasis. No pneumothorax, lobar consolidation or significant pleural fluid is seen. IMPRESSION: Developing left upper lobe infiltrate likely represents pneumonia. Dictated by: Dictated on workstation # [id number]
--- NOTE | 2020-04-19 10:02 | Progress Note ---
Subjective Subjective/Events-last exam Feeling better overall, but did note some wheezing this morning. Has been short of breath for nearly a month now, especially with exertion. Focused Exam Lactate Level 04/16/20 19:19: Lactic Acid Level 1.37 04/19/20 07:15: Lactic Acid Level 1.31 Lactic Acid Level Laboratory Tests Test 04/19/20 07:15 Lactic Acid Level 1.31 MMOL/L (0.50-2.00) Objective Exam Last Set of Vital Signs Vital Signs Date Time Temp Pulse Resp B/P (MAP) Pulse Ox O2 Delivery O2 Flow Rate FiO2 04/19/20 07:52 91 Room Air 04/19/20 07:51 35.4 71 16 124/74 (91) 04/17/20 02:20 21 Capillary Refill : Less Than 3 Seconds I&O Intake and Output 04/19/20 00:00 Intake Total 2185 ml Output Total 2640 ml Balance -455 ml Intake Oral 2185 ml Output Urine Total 2640 ml # Voids 3 # Bowel Movements 1 General: Alert, No Acute Distress Lungs: Normal Air Movement, Other (rales at left base) Heart: Regular Rate, No Murmurs Neuro: Normal Speech Psych/Mental Status: Mood NL Results/Procedures Lab Laboratory Tests 04/18/20 11:25: Glucometer 218H 04/18/20 15:55: Glucometer 250H 04/18/20 20:18: Glucometer 192H 04/19/20 05:15: White Blood Count 25.5H, Red Blood Count 4.73, Hemoglobin 13.3, Hematocrit 42, Mean Corpuscular Volume 90, Mean Corpuscular Hemoglobin 28, Mean Corpuscular Hemoglobin Concent 31L, Red Cell Distribution Width 13.4, Platelet Count 346, Mean Platelet Volume 11.5, Immature Granulocyte % (Auto) 2, Neutrophils (%) (Auto) 74, Lymphocytes (%) (Auto) 18, Monocytes (%) (Auto) 6, Eosinophils (%) (Auto) 0, Basophils (%) (Auto) 0, Neutrophils # (Auto) 18.9H, Lymphocytes # (Auto) 4.6H, Monocytes # (Auto) 1.5H, Eosinophils # (Auto) 0.0, Basophils # (Auto) 0.1, Immature Granulocyte # (Auto) 0.4H, Sodium Level 139, Potassium Level 4.4, Chloride Level 108H, Carbon Dioxide Level 19L, Anion Gap 12, Blood Urea Nitrogen 27H, Creatinine 1.09, Estimat Glomerular Filtration Rate 51, BUN/Creatinine Ratio 25, Glucose Level 165H, Calcium Level 8.8, Corrected Calcium 9.2, Phosphorus Level 4.9H, Magnesium Level 2.3, Total Bilirubin 0.3, Aspartate Amino Transf (AST/SGOT) 14, Alanine Aminotransferase (ALT/SGPT) 18, Alkaline Phosphatase 81, Total Protein 6.5, Albumin 3.5, Procalcitonin 0.04 04/19/20 05:51: Glucometer 175H 04/19/20 07:15: Lactic Acid Level 1.31 Microbiology 04/17/20 Urine Culture - Final, Complete NO GROWTH 04/16/20 Influenza Types A,B Antigen ([place]) - Final, Complete 04/16/20 Blood Culture - Preliminary, Resulted No growth Assessment/Plan Assessment/Plan (1) IDDM (insulin dependent diabetes mellitus) Status: Chronic (2) Pneumonia Status: Acute Assessment & Plan: Atypical, not requiring supplemental oxygen. Imaging with diffuse infiltrates. Is on cefepime, vancomycin and fluconazole currently as well as prednisone. Appreciate Pulmonology recommendations. COVID19 acute testing negative x 3, antibody pending. (3) DVT prophylaxis Status: Acute Assessment & Plan: Enoxaparin HALLIE JADE MD Apr 19, 2020 10:02
[2020-04-19] MEDS ORDERED: IBUP-2473 PO (10:17)
[2020-04-19] MEDS ORDERED: DULA1.5P2 SQ (10:17)
[2020-04-19] MEDS ORDERED: METF-478 PO (10:17)
[2020-04-19] MEDS ORDERED: MULT-1067 PO (10:17)
[2020-04-19 15:43] VITALS: BP 107/57
[2020-04-19] MEDS ORDERED: metFORMIN 500 MG (GLUCOPHAGE) TAB PO NR (18:00)
[2020-04-19] MEDS: MONTELUKAST 10 MG (SINGULAIR) TAB PO SCH (19:43)
[2020-04-19 23:18] VITALS: BP 114/58
[2020-04-20 05:31] LABS: BASOPHILS # (AUTO) 0.1 10^3/uL (0.0-0.1); BASOPHILS % (AUTO) 0 % (0-10); EOSINOPHILS # (AUTO) 0.1 10^3/uL (0.0-0.3); EOSINOPHILS % (AUTO) 1 % (0-10); HEMATOCRIT 43 % (35-52); HEMOGLOBIN 13.2 g/dL (11.5-16.0); LYMPHOCYTES # (AUTO) 5.7 10^3/uL (1.0-4.0); LYMPHOCYTES % (AUTO) 29 % (12-44); MEAN CORPUSCULAR HEMOGLOBIN 28 pg (25-34); MEAN CORPUSCULAR HGB CONC 31 g/dL (32-36); MEAN CORPUSCULAR VOLUME 89 fL (80-99); MEAN PLATELET VOLUME 11.4 fL (9.0-12.2); MONOCYTES # (AUTO) 1.4 10^3/uL (0.0-1.0); MONOCYTES % (AUTO) 7 % (0-12); NEUTROPHILS % (AUTO) 61 % (42-75); PLATELET COUNT 389 10^3/uL (130-400); WHITE BLOOD COUNT 19.7 10^3/uL (4.3-11.0)
[2020-04-20 05:45] LABS: POTASSIUM 3.8 MMOL/L (3.6-5.0)
[2020-04-20 05:46] LABS: CALCIUM 8.5 MG/DL (8.5-10.1)
[2020-04-20 05:50] LABS: CREATININE SERUM 1.14 MG/DL (0.60-1.30); PHOSPHORUS 5.7 MG/DL (2.3-4.7)
[2020-04-20 05:52] LABS: MAGNESIUM 2.4 MG/DL (1.6-2.4)
[2020-04-20] MEDS: inSUlin ASPART (NovoLOG) 1 UNIT/0.01 ML (CHARGE PER UNIT) SC SCH ×2 (05:56→11:39)
[2020-04-20] MEDS: CYANOCOBALAMIN 1,000 MCG (VITAMIN B-12) TABLET PO SCH (06:00)
[2020-04-20] MEDS: predniSONE 20 MG TAB PO SCH (06:01)
[2020-04-20] MEDS: CEFEPIME 1,000 MG/SWFI 10 ML IV PUSH IV SCH ×2 (06:02)
[2020-04-20] MEDS: ADVAIR HFA 115/21 MCG INHALER 8 GM IH SCH (07:01)
--- NOTE | 2020-04-20 07:21 | Pulmonary Progress Note ---
Subjective Time Seen by a Provider: 07:17 Sepsis Event Evaluation Height, Weight, BMI Height: '" Weight: lbs. oz. kg; 36.63 BMI Method: Focused Exam Lactate Level 04/19/20 07:15: Lactic Acid Level 1.31 Exam Exam Vital Signs Date Time Temp Pulse Resp B/P (MAP) Pulse Ox O2 Delivery O2 Flow Rate FiO2 04/20/20 07:01 93 Room Air 04/19/20 23:18 36.2 78 20 114/58 (76) 95 Room Air 04/19/20 20:17 Room Air 04/19/20 19:28 94 Room Air 04/19/20 15:43 36.1 89 18 107/57 (74) 93 Room Air 04/19/20 07:52 91 Room Air 04/19/20 07:51 35.4 71 16 124/74 (91) 91 Room Air I & O 04/20/20 07:00 Intake Total 2682.5 ml Output Total 1925 ml Balance 757.5 ml Height & Weight Height: '" Weight: lbs. oz. kg; 36.63 BMI Method: General Appearance: No Apparent Distress, WD/WN, Chronically ill HEENT: PERRL/EOMI, Normal ENT Inspection, Pharynx Normal, Moist Mucous Membranes Neck: Full Range of Motion, Normal Inspection, Non Tender Respiratory: Chest Non Tender, Lungs Clear, Normal Breath Sounds, No Accessory Muscle Use, No Respiratory Distress Cardiovascular: Regular Rate, Rhythm, No Edema, No Gallop, No JVD, No Murmur, Normal Peripheral Pulses Capillary Refill: Less Than 3 Seconds Gastrointestinal: non tender, soft Extremity: Normal Capillary Refill, Normal Inspection, Normal Range of Motion, Non Tender, No Calf Tenderness, No Pedal Edema Neurologic/Psychiatric: Alert, Oriented x3, No Motor/Sensory Deficits, Normal Mood/Affect Skin: Normal Color, Warm/Dry Lymphatic: No Adenopathy Results Lab Laboratory Tests 04/19/20 05:15 04/20/20 04:55 Assessment/Plan Assessment/Plan recurrent PNA - failed 3 rounds of abx -PT is on RA -COVID is negative -Cultures are negative -COVID ab is Negative -CT of chest reviewed - PCT- Negative x 2 -MRSA nasal swab - pending Hx of tobacco use JAIME ROLDAN DO Apr 20, 2020 07:21
[2020-04-20] MEDS ORDERED: VANCOMYCIN 1500 MG/NS 500 ML IVPB IV SCH ×2 (07:30)
[2020-04-20] MEDS: inSUlin ASPART (NovoLOG) 1 UNIT/0.01 ML (CHARGE PER UNIT) SQ SCH (07:38)
[2020-04-20] MEDS ORDERED: metFORMIN 500 MG (GLUCOPHAGE) TAB PO SCH ×2 (08:00→18:00)
[2020-04-20 08:20] VITALS: BP 123/64
[2020-04-20] MEDS: APIXABAN 5 MG (ELIQUIS) TABLET PO SCH (09:29)
[2020-04-20] MEDS: LORATADINE (CLARITIN) 10 MG TAB PO SCH (09:29)
[2020-04-20] MEDS: lisINopril 5 MG (PRINIVIL) TABLET PO SCH (09:29)
[2020-04-20] MEDS: fluCOnazole (DIFLUCAN) 100 MG TAB PO SCH (09:32)
[2020-04-20] MEDS ORDERED: CEFD300C3 PO (10:13)
[2020-04-20] MEDS ORDERED: PRD20T PO (10:13)
[2020-04-20] MEDS ORDERED: FLUC100T6 PO (10:13)
[2020-04-20] MEDS ORDERED: FLUT12AE4 IH (10:13)
[2020-04-20] MEDS ORDERED: RT-ALBUINH IH (10:13)
--- NOTE | 2020-04-20 10:18 | Discharge Summary ---
Discharge Summary Hospital Course Problems Reviewed?: Yes Problems/Diagnosis: (1) IDDM (insulin dependent diabetes mellitus) Status: Chronic Assessment & Plan: Resumed home medications, given script for fluconazole along with antibiotics due to history of severe yeast infections with antibiotic use. (2) Pneumonia Status: Acute Assessment & Plan: Atypical, not requiring supplemental oxygen. Imaging with diffuse infiltrates. Is on cefepime, vancomycin and fluconazole currently as well as prednisone. Appreciate Pulmonology recommendations. COVID19 acute testing negative x 3, antibody also negative. 3/2 still stable on room air, discussed with Pulm, will follow up outpatient, will need repeat CT in 8 weeks. Discharged to complete course of cefdinir, prednisone and also started on Advair while inpatient and continued on d/c along with albuterol prn. Recommend spirometry/PFT when stable, and possibly sleep apnea testing as well. (3) Elevated d-dimer Status: Acute Assessment & Plan: CTA chest negative for PE, treated with anticoagulation initially, but not continued on d/c given negative CTA. Suspect reactive. Hospital Course Date of Admission: Apr 16, 2020 at 21:40 Admission Diagnosis : See problem list Family Physician/Provider: Andreea Sainz Date of Discharge: 04/20/20 Discharge Diagnosis: See problem list Hospital Course: See problem list Labs and Pending Lab Test: Laboratory Tests 04/19/20 11:29: Glucometer 199H 04/19/20 15:45: Glucometer 201H 04/19/20 20:15: Glucometer 126H 04/20/20 04:55: White Blood Count 19.7H, Red Blood Count 4.80, Hemoglobin 13.2, Hematocrit 43, Mean Corpuscular Volume 89, Mean Corpuscular Hemoglobin 28, Mean Corpuscular Hemoglobin Concent 31L, Red Cell Distribution Width 13.8, Platelet Count 389, Mean Platelet Volume 11.4, Immature Granulocyte % (Auto) 2, Neutrophils (%) (Auto) 61, Lymphocytes (%) (Auto) 29, Monocytes (%) (Auto) 7, Eosinophils (%) (Auto) 1, Basophils (%) (Auto) 0, Neutrophils # (Auto) 12.0H, Lymphocytes # (Auto) 5.7H, Monocytes # (Auto) 1.4H, Eosinophils # (Auto) 0.1, Basophils # (Auto) 0.1, Immature Granulocyte # (Auto) 0.5H, Sodium Level 142, Potassium Level 3.8, Chloride Level 109H, Carbon Dioxide Level 21, Anion Gap 12, Blood Urea Nitrogen 31H, Creatinine 1.14, Estimat Glomerular Filtration Rate 48, BUN/Creatinine Ratio 27, Glucose Level 107H, Calcium Level 8.5, Phosphorus Level 5.7H, Magnesium Level 2.4 Microbiology 04/17/20 Urine Culture - Final, Complete NO GROWTH 04/16/20 Influenza Types A,B Antigen ([place]) - Final, Complete 04/16/20 Blood Culture - Preliminary, Resulted No growth Home Meds Active Reported Trulicity (Dulaglutide) 1.5 Mg/0.5 Ml Pen.injctr 1.5 Mg SQ SUNDAY Ibuprofen 200 Mg Tablet 600 Mg PO Q6H PRN TAKES 3 (200MG) TABLETS Centrum Adults Tablet (Multivitamin/Iron/Folic Acid) 1 Each Tablet 1 Each PO DAILY Metformin HCl ER (Metformin HCl) 500 Mg Tab.er.24 500 Mg PO BID Neurontin (Gabapentin) 300 Mg Capsule 300 Mg PO HS PRN Vitamin B-12 (Cyanocobalamin (Vitamin B-12)) 500 Mcg Lozenge 500 Mcg PO DAILY Levemir (Insulin Determir) 1,000 Units/10 Ml Soln 30-35 Units SQ BID Novolog (Insulin Aspart) 100 Unit/1 Ml Susp 25 Unit SQ AC Lisinopril 2.5 Mg Tablet 2.5 Mg PO DAILY Assessment/Pt DC Instructions Follow up with Bette Jones APRN on 04/23 at 9:[address] am. Follow up with Dr. Arechiga as directed. Discharge Diet: ADA Diet Activity as Tolerated: Yes Discharge Physical Examination Allergies: Coded Allergies: No Known Drug Allergies (Unverified , 04/16/20) General Appearance: No Apparent Distress, Obese Respiratory: Crackles (left, greatest at base); No Wheezing Cardiovascular: Regular Rate, Rhythm, No Murmur Extremity: No Pedal Edema Skin: Normal Color, Warm/Dry Neurologic/Psychiatric: Alert, Normal Mood/Affect Copy Copies To 1: NOLA Chase BETHANY N MD Apr 20, 2020 10:18
[2020-04-20 11:31] VITALS: BP 123/64
[2020-04-21] MEDS ORDERED: TROUGH ORDER-PHARMACY XX NR (06:30)
== END 2020-04-20 11:40 | disposition home or self-care (01) | DRG 195 ==
LOC: EDUNIT# 18:11 → ER 18:13 → 4TH 21:40
PROVIDERS: ADMIT Internal Medicine; ATTEND Family Medicine
DX: J18.9 Pneumonia, unspecified organism (principal); E11.65 Type 2 diabetes mellitus with hyperglycemia; E78.00 Pure hypercholesterolemia, unspecified; E78.5 Hyperlipidemia, unspecified; I10 Essential (primary) hypertension; F41.9 Anxiety disorder, unspecified; R79.1 Abnormal coagulation profile; E66.9 Obesity, unspecified; Z20.822 Contact with and (suspected) exposure to COVID-19; Z79.4 Long term (current) use of insulin; Z68.36 Body mass index [BMI] 36.0-36.9, adult; Z87.891 Personal history of nicotine dependence; T38.0X5A Adverse effect of glucocorticoids and synthetic analogues, initial encounter
CPT/HCPCS: 36415; 71045; 71046; 71275; 80048; 80053; 81000; 82550; 82553; 82805; 82962; 83605; 83615; 83735; 83874; 83880; 84100; 84145; 84484; 85007; 85025; 85027; 85379; 85610; 85652; 85730; 86141; 86769; 87040; 87088; 87635; 87804; 93005; 93041; 94640; 94760

== ENCOUNTER 2020-04-28 17:04 | Inpatient (IN) | payer OTHER ==
[~2020-04-28] VITALS: Ht 154 cm; Wt 89.0 kg
[2020-04-28] VITALS (7 sets, daily range): BP systolic 122–138; BP diastolic 38–86
[~2020-04-28 17:04] MED LIST: CEFD300C3 PO; CYAN500L PO; DULA1.5P2 SQ; FLUC100T6 PO; FLUT12AE4 IH; GABA300C PO; GABA300S2 PO; IBUP-2473 PO; INSU100V16 SQ; INSU100V5 SQ; LISI2.5T PO; METF-399 PO; METF-478 PO; MULT-1067 PO; PRD20T PO; RT-ALBUINH IH
[2020-04-28 17:50] LABS: ABG BASE EXCESS -1.2 MMOL/L (-2.5-2.5); ABG OXYGEN SATURATION 94 % (94-100); ABG PCO2 34 MMHG (35-45); ABG PH 7.44 (7.37-7.43); ABG PO2 75 MMHG (79-93); ABG TCO2 23.5 MMOL/L (21.0-31.0)
[2020-04-28 17:53] LABS: ALLENS TEST POS; INSPIRED O2 2L; PATIENT TEMP 98.1; VENTILATOR NO
[2020-04-28] MEDS ORDERED: CEFEPIME INJECTION 1,000 MG in WATER (STERILE) FOR INJECTION 10 ML IV ONE (18:00)
[2020-04-28] MEDS ORDERED: LACTATED RINGERS 1,000 ML IV ONE ×2 (18:00)
[2020-04-28] MEDS ORDERED: VANCOMYCIN INJECTION 1,000 MG in NS (IVPB) 250 ML IV ONE (18:00)
--- NOTE | 2020-04-28 18:00 | ED Respiratory ---
General Chief Complaint: Respiratory Problems Stated Complaint: SOA Nursing Triage Note: Pt was recently discharged from the hospital after being treated for pneumonia. Pt reports worsening SOA starting this morning. Source: patient, spouse () Exam Limitations: no limitations (MAINE DENNISON) History of Present Illness Date Seen by Provider: Apr 28, 2020 Time Seen by Provider: 17:34 Initial Comments Patient presents ER by private conveyance from home with chief complaint since Sunday, 3 days ago she had progressively worsening shortness of breath. The past month has been dealing with pneumonia on an outpatient as well as inpatient basis she was discharged last week around Sunday under Dr. Daly's care [facility]. She was doing well and had completed her outpatient antibiotics until Sunday when she started feeling bad again. She never required oxygen. She has no history of requiring oxygen. She has no history of asthma or COPD but she did get sent home with a long-acting twice a day inhaler as well as albuterol which she has been using and states that it does help. She had no fevers at any time. She is been Covid swab mu ltiple times as well as had negative antibody studies. Negative flu swabs in the past. She denies any nausea vomiting diarrhea chest pain. She is an insulin-dependent diabetic. (MAINE DENNISON) Allergies and Home Medications Allergies Coded Allergies: No Known Drug Allergies (Unverified , 04/16/20) Home Medications Albuterol Sulfate 1 Puff Puff, 2 PUFF IH Q4H PRN for SHORTNESS OF BREATH 1 PUFF = 90 MCG Prescribed by: HALLIE JADE on 04/20/20 1013 Cyanocobalamin (Vitamin B-12) 500 Mcg Lozenge, 500 MCG PO DAILY, (Reported) Dulaglutide 1.5 Mg/0.5 Ml Pen.injctr, 1.5 MG SQ SUNDAY, (Reported) Gabapentin 300 Mg Capsule, 300 MG PO HS PRN for LEG CRAMPS, (Reported) Ibuprofen 200 Mg Tablet, 600 MG PO Q6H PRN for PAIN-MILD (1-4), (Reported) TAKES 3 (200MG) TABLETS Insulin Aspart 100 Unit/1 Ml Susp, 25 UNIT SQ AC, (Reported) Insulin Determir 1,000 Units/10 Ml Soln, 30-35 UNITS SQ BID, (Reported) Lisinopril 2.5 Mg Tablet, 2.5 MG PO DAILY, (Reported) Metformin HCl 500 Mg Tab.er.24, 500 MG PO BID, (Reported) Multivitamin/Iron/Folic Acid 1 Each Tablet, 1 EACH PO DAILY, (Reported) Patient Home Medication List Home Medication List Reviewed: Yes (MAINE DENNISON) Review of Systems Review of Systems Constitutional: No chills, No diaphoresis EENTM: No ear discharge, No hearing loss Respiratory: cough, short of breath Cardiovascular: No edema, No Hx of Intervention, No palpitations Gastrointestinal: No abdominal pain, No constipation, No diarrhea, No nausea, No vomiting Genitourinary: No discharge, No dysuria Musculoskeletal: No back pain, No joint pain (MAINE DENNISON) All Other Systems Reviewed Negative Unless Noted: Yes (MAINE DENNISON) Past Dbdsstq-Mcxklr-Cyenuo Hx Patient Social History Alcohol Use: Denies Use Drug of Choice: DENIES Smoking Status: Current Everyday Smoker Type Used: Cigarettes 2nd Hand Smoke Exposure: No Recent Infectious Disease Expo: No Recent Hopitalizations: No (MAINE DENNISON) Immunizations Up To Date Date of Influenza Vaccine: Nov 20, 2019 (MAINE DENNISON) Seasonal Allergies Seasonal Allergies: Yes (MAINE DENNISON) Past Medical History Surgeries: Yes Adenoidectomy, Appendectomy, Hysterectomy, Tonsillectomy Respiratory: No (SMOKED 2 PPD, QUIT 2003) Cardiac: Yes High Cholesterol, Hypertension 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 oz. kg; 37.00 BMI Method: General Appearance: WD/WN, moderate distress Eyes: Bilateral Eye Normal Inspection, Bilateral Eye PERRL, Bilateral Eye EOMI HEENT: PERRL/EOMI, normal ENT inspection, pharynx normal Neck: full range of motion, normal inspection Respiratory: respiratory distress (Mild to moderate with oxygen saturations 88% on room air with a respiratory rate in the 20-30 range.), decreased breath sounds, accessory muscle use, wheezing Cardiovascular: normal peripheral pulses, regular rate, rhythm Gastrointestinal: non tender, soft Neurologic/Psychiatric: alert, oriented x 3 Skin: normal color, warm/dry (MAINE DENNISON) Focused Exam Lactate Level 04/28/20 17:50: Lactic Acid Level 2.09*H 04/28/20 20:00: Lactic Acid Level 1.54 (GOPI TRAN DO) Lactic Acid Level Laboratory Tests Test 04/28/20 17:50 04/28/20 20:00 Lactic Acid Level 2.09 MMOL/L (0.50-2.00) *H 1.54 MMOL/L (0.50-2.00) (GOPI TRAN DO) Progress/Results/Core Measures Suspected Sepsis Recent Fever Within 48 Hours: Yes Infection Criteria Present: Documented Infection New/Unexplained Altered Menta: No Sepsis Screen: Possible Severe Sepsis Risk SIRS Temperature: Pulse: 108 Respiratory Rate: 35 Blood Pressure 147 /81 Mean: 103 (MAINE DENNISON) Results/Orders Lab Results Laboratory Tests Test 04/28/20 17:15 04/28/20 17:38 04/28/20 17:50 04/28/20 19:20 Range/Units Coronavirus 2019 (ADAM) Negative Negative Blood Gas Puncture Site RT RAD Blood Gas Patient Temperature 98.1 Arterial Blood pH 7.44 H 7.37-7.43 Arterial Blood Partial Pressure CO2 34 L 35-45 MMHG Arterial Blood Partial Pressure O2 75 L 79-93 MMHG Arterial Blood HCO3 23 23-27 MMOL/L Arterial Blood Total CO2 23.5 21.0-31.0 MMOL/L Arterial Blood Oxygen Saturation 94 94-100 % Arterial Blood Base Excess -1.2 -2.5-2.5 MMOL/L Audie Test POS Blood Gas Ventilator Setting NO Blood Gas Inspired Oxygen 2L White Blood Count 16.0 H 4.3-11.0 10^3/uL Red Blood Count 4.83 3.80-5.11 10^6/uL Hemoglobin 13.4 11.5-16.0 g/dL Hematocrit 43 35-52 % Mean Corpuscular Volume 88 80-99 fL Mean Corpuscular Hemoglobin 28 25-34 pg Mean Corpuscular Hemoglobin Concent 31 L 32-36 g/dL Red Cell Distribution Width 13.2 10.0-14.5 % Platelet Count 388 130-400 10^3/uL Mean Platelet Volume 10.5 9.0-12.2 fL Immature Granulocyte % (Auto) 1 % Neutrophils (%) (Auto) 74 42-75 % Lymphocytes (%) (Auto) 18 12-44 % Monocytes (%) (Auto) 7 0-12 % Eosinophils (%) (Auto) 1 0-10 % Basophils (%) (Auto) 0 0-10 % Neutrophils # (Auto) 11.8 H 1.8-7.8 10^3/uL Lymphocytes # (Auto) 2.9 1.0-4.0 10^3/uL Monocytes # (Auto) 1.1 H 0.0-1.0 10^3/uL Eosinophils # (Auto) 0.1 0.0-0.3 10^3/uL Basophils # (Auto) 0.1 0.0-0.1 10^3/uL Immature Granulocyte # (Auto) 0.1 0.0-0.1 10^3/uL Neutrophils % (Manual) 67 % Lymphocytes % (Manual) 26 % Monocytes % (Manual) 7 % Blood Morphology Comment NORMAL Prothrombin Time 13.4 12.2-14.7 SEC INR Comment 1.0 0.8-1.4 Activated Partial Thromboplast Time 32 24-35 SEC Sodium Level 136 135-145 MMOL/L Potassium Level 4.2 3.6-5.0 MMOL/L Chloride Level 101 98-107 MMOL/L Carbon Dioxide Level 22 21-32 MMOL/L Anion Gap 13 5-14 MMOL/L Blood Urea Nitrogen 10 7-18 MG/DL Creatinine 1.05 0.60-1.30 MG/DL Estimat Glomerular Filtration Rate 53 BUN/Creatinine Ratio 10 Glucose Level 218 H 70-105 MG/DL Lactic Acid Level 2.09 *H 0.50-2.00 MMOL/L Calcium Level 9.2 8.5-10.1 MG/DL Corrected Calcium 9.4 8.5-10.1 MG/DL Total Bilirubin 0.7 0.1-1.0 MG/DL Aspartate Amino Transf (AST/SGOT) 14 5-34 U/L Alanine Aminotransferase (ALT/SGPT) 23 0-55 U/L Alkaline Phosphatase 99 40-136 U/L Total Protein 7.7 6.4-8.2 GM/DL Albumin 3.8 3.2-4.5 GM/DL Urine Color YELLOW Urine Clarity OTHER Urine pH 6.0 5-9 Urine Specific [place] 1.010 L 1.016-1.022 Urine Protein NEGATIVE NEGATIVE Urine Glucose (UA) NEGATIVE NEGATIVE Urine Ketones NEGATIVE NEGATIVE Urine Nitrite NEGATIVE NEGATIVE Urine Bilirubin NEGATIVE NEGATIVE Urine Urobilinogen 0.2 < = 1.0 MG/DL Urine Leukocyte Esterase TRACE H NEGATIVE Urine RBC (Auto) NEGATIVE NEGATIVE Urine RBC NONE /HPF Urine WBC 2-5 /HPF Urine Squamous Epithelial Cells 2-5 /HPF Urine Crystals NONE /LPF Urine Bacteria NEGATIVE /HPF Urine Casts NONE /LPF Urine Mucus NEGATIVE /LPF Urine Culture Indicated CULTURE PENDING Test 04/28/20 20:00 Range/Units Lactic Acid Level 1.54 0.50-2.00 MMOL/L (GOPI TRAN DO) Micro Results Microbiology 04/28/20 Influenza Types A,B Antigen ([place]) - Final, Complete (GOPI TRAN DO) Medications Given in ED Current Medications Medications Dose Ordered Sig/Kaz Route Start Time Stop Time Status Last Admin Dose Admin Cefepime HCl 1000 mg/Sterile Water 10 ml @ 200 mls/hr ONCE ONCE IV 04/28/20 18:00 04/28/20 18:02 DC 04/28/20 18:13 200 MLS/HR Iohexol 75 ml ONCE ONCE IV 04/28/20 18:15 04/28/20 18:33 DC 04/28/20 20:06 75 ML Lactated Ringer's 1,000 ml @ 0 mls/hr Q0M ONCE IV 04/28/20 18:00 04/28/20 18:01 DC 04/28/20 18:18 1,000 MLS/HR Lactated Ringer's 1,000 ml @ 0 mls/hr Q0M ONCE IV 04/28/20 18:00 04/28/20 18:01 DC 04/28/20 19:26 0 MLS/HR Sodium Chloride 100 ml ONCE ONCE IV 04/28/20 18:15 04/28/20 18:33 DC 3/10/21 20:06 100 ML Vancomycin HCl 750 mg/Sodium Chloride 250 ml @ 250 mls/hr ONCE ONCE IV 04/28/20 19:00 04/28/20 19:59 DC 04/28/20 19:26 250 MLS/HR Vancomycin HCl 1000 mg/Sodium Chloride 250 ml @ 250 mls/hr ONCE ONCE IV 04/28/20 18:00 04/28/20 18:59 DC 04/28/20 18:18 250 MLS/HR (GOPI TRAN DO) Vital Signs/I&O 04/28/20 17:05 Temp 36.7 Pulse 108 Resp 35 B/P (MAP) 147/81 (103) O2 Delivery Room Air 04/29/20 00:00 Intake Total 1260 ml Balance 1260 ml (GOPI TRAN DO) Vital Signs/I&O Capillary Refill : Less Than 3 Seconds (MAINE DENNISON) Blood Pressure Mean: 103 Progress Note : Time: 17:58 Progress Note Concern for pulmonary embolism. She has no fever but will go and get a Covid influenza swab. If these are negative then I would not pursue this any further. We will give her broad-spectrum antibiotics get a chest x-ray septic work-up based on her respiratory rate and tachycardia. ABG. Discussed the case with Dr. Tran who is going to assume care of the patient at shift change and look for the results of these imaging and lab studies and treat her appropriately. We have already discussed with the patient that she will need hospitalization based on her need for oxygen 2 L by nasal cannula to maintain oxygen saturation in the mid 90s. She is okay with this plan. (MAINE DENNISON) Progress Note : Progress Note 1800--ASSUMED CARE FROM DR. DENNISON. CT PENDING. PT IS RESTING QUIETLY, NON-LA BORED BREATHING. VITALS STABLE. O2 SATS 97-98% ON 2L/NC. (GOPI TRAN DO) Diagnostic Imaging Diagonstic Imaging: Xray Plain Films/CT/US/NM/MRI: chest Reviewed: Reviewed by Me Diagonstic Imaging: CT (Angiogram) Plain Films/CT/US/NM/MRI: chest Reviewed: Reviewed by Me (MAINE DENNISON) Comments CT CHEST ANGIOGRAM--PER RADIOLOGIST REPORT AT 2013 INDICATION: Increasing shortness of breath. FINDINGS: There are infiltrates in the medial segment of the right middle lobe and the left upper lobe. There is some patchy alveolar nodular infiltrate at the left lung base. There are no effusions or pneumothoraces. There is no right ventricular strain. There are no pulmonary emboli. The aorta has some calcific atherosclerosis but no aneurysm or dissection. There is coronary calcific arteriosclerosis. IMPRESSION: Bilateral pulmonary infiltrates consistent with pneumonia. No evidence for pulmonary embolism. (GOPI TRAN DO) Transfer of Care Transfer of Care Time: 18:00 Care transferred to: Dr. Tran (MAINE DENNISON) Departure Communication (Admissions) 2014--SPOKE WITH DR. DALY, HOSPITALIST FOR [facility]. ACCEPTS PT FOR ADMIT. ORDERS NOTED. WILL CONSULT PULMONOLOGY. (GOPI TRAN DO) Impression Primary Impression: PERSISTENT BILATERAL PNEUMONIA Additional Impressions: Hypoxia IDDM (insulin dependent diabetes mellitus) Disposition: ADMITTED INPATIENT Condition: Improved Admissions Decision to Admit Reason: Admit from ER (General) Decision to Admit/Date: Apr 28, 2020 Time/Decision to Admit Time: 20:15 (GOPI TRAN DO) Departure-Patient Inst. Referrals: NO,LOCAL PHYSICIAN (PCP/Family) Primary Care Physician MAINE DENNISON Apr 28, 2020 17:59 GOPI TRAN DO Apr 28, 2020 20:18
[2020-04-28 18:09] LABS: BASOPHILS # (AUTO) 0.1 10^3/uL (0.0-0.1); BASOPHILS % (AUTO) 0 % (0-10); EOSINOPHILS # (AUTO) 0.1 10^3/uL (0.0-0.3); EOSINOPHILS % (AUTO) 1 % (0-10); HEMATOCRIT 43 % (35-52); HEMOGLOBIN 13.4 g/dL (11.5-16.0); LYMPHOCYTES # (AUTO) 2.9 10^3/uL (1.0-4.0); LYMPHOCYTES % (AUTO) 18 % (12-44); MEAN CORPUSCULAR HEMOGLOBIN 28 pg (25-34); MEAN CORPUSCULAR HGB CONC 31 g/dL (32-36); MEAN CORPUSCULAR VOLUME 88 fL (80-99); MEAN PLATELET VOLUME 10.5 fL (9.0-12.2); MONOCYTES # (AUTO) 1.1 10^3/uL (0.0-1.0); MONOCYTES % (AUTO) 7 % (0-12); NEUTROPHILS # (AUTO) 11.8 10^3/uL (1.8-7.8); NEUTROPHILS % (AUTO) 74 % (42-75); PLATELET COUNT 388 10^3/uL (130-400)
[2020-04-28] MEDS ORDERED: HOLD METFORMIN - RECEIVED CONTRAST 20 ML VIAL IV SCH (18:15)
[2020-04-28] MEDS ORDERED: NS 100 ML (IVPB) BAG IV ONE (18:15)
[2020-04-28] MEDS ORDERED: IOHEXOL 350 MG/ML 100 ML (OMNIPAQUE 350) VIAL IV ONE (18:15)
[2020-04-28 18:24] LABS: ALBUMIN 3.8 GM/DL (3.2-4.5); POTASSIUM 4.2 MMOL/L (3.6-5.0)
[2020-04-28 18:25] LABS: CALCIUM 9.2 MG/DL (8.5-10.1)
[2020-04-28 18:26] LABS: TOTAL PROTEIN 7.7 GM/DL (6.4-8.2)
[2020-04-28 18:28] LABS: BILIRUBIN,TOTAL 0.7 MG/DL (0.1-1.0)
[2020-04-28 18:30] LABS: CREATININE SERUM 1.05 MG/DL (0.60-1.30)
[2020-04-28 18:33] LABS: PROTHROMBIN TIME PATIENT 13.4 SEC (12.2-14.7)
[2020-04-28 18:43] LABS: LYMPHOCYTES % (MANUAL) 26 %; MONOCYTES % (MANUAL) 7 %; NEUTROPHILS % (MANUAL) 67 %; RBC MORPH NORMAL
[2020-04-28] MEDS ORDERED: VANCOMYCIN INJECTION 750 MG in NS (IVPB) 250 ML IV ONE (19:00)
[2020-04-28 19:24] LABS: BILIRUBIN,URINE NEGATIVE (NEGATIVE); CLARITY,URINE OTHER; COLOR,URINE YELLOW; GLUCOSE, URINE (UA) NEGATIVE (NEGATIVE); KETONES,URINE NEGATIVE (NEGATIVE); LEUKOCYTE ESTERASE ,URINE TRACE (NEGATIVE); NITRITE,URINE NEGATIVE (NEGATIVE); PROTEIN,URINE NEGATIVE (NEGATIVE)
[2020-04-28 19:31] LABS: BACTERIA,URINE NEGATIVE /HPF
--- NOTE | 2020-04-28 20:09 | Diagnostic Imaging Report ---
INDICATION: Sepsis. EXAMINATION: Portable chest at 8:02 p.m. FINDINGS: There are infiltrates present in the left upper lobe, right middle lobe and left lung base. These appear to be slightly worse compared to 04/19/2020. IMPRESSION: Bilateral pulmonary infiltrates appear worse compared to 04/19/2020. Dictated by: Dictated on workstation # [id number]
--- NOTE | 2020-04-28 20:10 | Diagnostic Imaging Report ---
PROCEDURE: CT angiography of the chest with contrast. TECHNIQUE: Multiple contiguous axial images were obtained through the chest after uneventful bolus administration of intravenous contrast. 3D reconstructed CTA MIP acquisitions were also performed. Auto Exposure Controls were utilized during the CT exam to meet ALARA standards for radiation dose reduction. INDICATION: Increasing shortness of breath. FINDINGS: There are infiltrates in the medial segment of the right middle lobe and the left upper lobe. There is some patchy alveolar nodular infiltrate at the left lung base. There are no effusions or pneumothoraces. There is no right ventricular strain. There are no pulmonary emboli. The aorta has some calcific atherosclerosis but no aneurysm or dissection. There is coronary calcific arteriosclerosis. IMPRESSION: Bilateral pulmonary infiltrates consistent with pneumonia. No evidence for pulmonary embolism. Dictated by: Dictated on workstation # [id number]
[2020-04-28] MEDS ORDERED: MELATONIN 3 MG TABLET PO PRN (21:00)
[2020-04-28] MEDS ORDERED: CALCIUM CARBONATE 500 MG (TUMS) TAB.CHEW PO PRN (21:00)
[2020-04-28] MEDS ORDERED: diphenhydrAMINE 25 MG TAB (BENADRYL) PO PRN (21:00)
[2020-04-28] MEDS ORDERED: DOCUSATE SODIUM 100 MG (COLACE) CAP PO PRN (21:00)
[2020-04-28] MEDS ORDERED: HYDROcodone/APAP 5 MG/325 MG (LORTAB) TAB PO PRN (21:00)
[2020-04-28] MEDS ORDERED: morphine INJ 4 MG/ML 1 ML (VIAL/SYRINGE) IVP PRN (21:00)
[2020-04-28] MEDS ORDERED: guaiFENesin/CODEINE (ROBITUSSIN AC) 10ML UDC PO PRN (21:00)
[2020-04-28] MEDS ORDERED: LOPERAMIDE 2 MG (IMODIUM) TABLET PO PRN (21:00)
[2020-04-28] MEDS ORDERED: ACETAMINOPHEN 500 MG TAB (TYLENOL) PO PRN (21:00)
[2020-04-28] MEDS ORDERED: ONDANSETRON 4 MG/2 ML (SDV) Z0FRAN IVP PRN (21:00)
[2020-04-28] MEDS: MEROPENEM 500 MG/SWFI 10 ML IV PUSH IV SCH ×2 (21:44)
[2020-04-28] MEDS: ENOXAPARIN 40 MG/0.4 ML (LOVENOX) SYR SC SCH (21:44)
[2020-04-28] MEDS: SENNA W/DOCUSATE (SENOKOT S) TABLET PO SCH (21:44)
[2020-04-28] MEDS: methylPREDNISolone 40 MG/ML (Solu-MEDROL) VIAL IV SCH (21:44)
[2020-04-28] MEDS: 1/2 NS W/KCL 20 MEQ/L 1,000 ML IV SCH (21:44)
[2020-04-28] MEDS ORDERED: DOXYCYCLINE INJECTION 100 MG in NS (IVPB) 100 ML IV SCH (22:00)
[2020-04-28] MEDS ORDERED: RT-ALBUTEROL INHALER HFA (VENTOLIN HFA) 18 GM IH PRN (22:00)
[2020-04-29] VITALS (11 sets, daily range): BP systolic 100–135; BP diastolic 53–87
[2020-04-29] MEDS: RT-ALBUTEROL INHALER HFA (VENTOLIN HFA) 18 GM IH SCH ×6 (01:49→21:50)
[2020-04-29] MEDS: MEROPENEM 500 MG/SWFI 10 ML IV PUSH IV SCH ×8 (04:10→21:08)
[2020-04-29 05:24] LABS: BASOPHILS % (AUTO) 0 % (0-10); EOSINOPHILS % (AUTO) 0 % (0-10); HEMATOCRIT 42 % (35-52); HEMOGLOBIN 13.1 g/dL (11.5-16.0); LYMPHOCYTES # (AUTO) 0.7 10^3/uL (1.0-4.0); LYMPHOCYTES % (AUTO) 5 % (12-44); MEAN CORPUSCULAR HEMOGLOBIN 28 pg (25-34); MEAN CORPUSCULAR HGB CONC 31 g/dL (32-36); MEAN CORPUSCULAR VOLUME 89 fL (80-99); MEAN PLATELET VOLUME 10.8 fL (9.0-12.2); MONOCYTES # (AUTO) 0.1 10^3/uL (0.0-1.0); MONOCYTES % (AUTO) 1 % (0-12); NEUTROPHILS # (AUTO) 13.1 10^3/uL (1.8-7.8); NEUTROPHILS % (AUTO) 93 % (42-75); PLATELET COUNT 367 10^3/uL (130-400); WHITE BLOOD COUNT 14.1 10^3/uL (4.3-11.0)
[2020-04-29 05:54] LABS: ALBUMIN 3.3 GM/DL (3.2-4.5); BILIRUBIN,TOTAL 0.5 MG/DL (0.1-1.0); CREATININE SERUM 1.12 MG/DL (0.60-1.30); TOTAL PROTEIN 7.4 GM/DL (6.4-8.2)
[2020-04-29 06:01] LABS: POTASSIUM 5.2 MMOL/L (3.6-5.0)
--- NOTE | 2020-04-29 06:06 | Pulmonary Consultation ---
History of Present Illness History of Present Illness Date Seen by Provider: Apr 29, 2020 Time Seen by Provider: 06:01 Date of Admission History of Present Illness 65yo who has been treated as out pt for pneumonia presented to ED secondary to persistent worsening symptoms. Pt was hospitalized and discharged 04/20. She was found to be hypoxic and is currently on 2 liters NC. She has no history of asthma or COPD. = Allergies and Home Medications Allergies Coded Allergies: No Known Drug Allergies (Unverified , 04/16/20) Home Medications Albuterol Sulfate 1 Puff Puff, 2 PUFF IH Q4H PRN for SHORTNESS OF BREATH 1 PUFF = 90 MCG Prescribed by: HALLIE JADE on 04/20/20 1013 Cyanocobalamin (Vitamin B-12) 500 Mcg Lozenge, 500 MCG PO DAILY, (Reported) Dulaglutide 1.5 Mg/0.5 Ml Pen.injctr, 1.5 MG SQ SUNDAY, (Reported) Gabapentin 300 Mg Capsule, 300 MG PO HS PRN for LEG CRAMPS, (Reported) Ibuprofen 200 Mg Tablet, 600 MG PO Q6H PRN for PAIN-MILD (1-4), (Reported) TAKES 3 (200MG) TABLETS Insulin Aspart 100 Unit/1 Ml Susp, 25 UNIT SQ AC, (Reported) Insulin Determir 1,000 Units/10 Ml Soln, 30-35 UNITS SQ BID, (Reported) Lisinopril 2.5 Mg Tablet, 2.5 MG PO DAILY, (Reported) Metformin HCl 500 Mg Tab.er.24, 500 MG PO BID, (Reported) Multivitamin/Iron/Folic Acid 1 Each Tablet, 1 EACH PO DAILY, (Reported) Past Apfupga-Ishyny-Rlenuw Hx Patient Social History Alcohol Use: Denies Use Drug of Choice: DENIES Smoking Status: Current Everyday Smoker Type Used: Cigarettes Former Smoker, Quit: Feb 19, 2003 2nd Hand Smoke Exposure: No Recent Infectious Disease Expo: No Recent Hopitalizations: No Have you traveled recently?: No Alcohol Use?: No Immunizations Up To Date Date of Influenza Vaccine: Nov 20, 2019 Seasonal Allergies Seasonal Allergies: Yes Past Medical History Surgeries: Yes Adenoidectomy, Appendectomy, Hysterectomy, Tonsillectomy Respiratory: No (SMOKED 2 PPD, QUIT 2003) Cardiac: Yes High Cholesterol, Hypertension Neurological: No [employer]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 oz. kg; 37.52 BMI Method: Exam Exam Vital Signs Date Time Temp Pulse Resp B/P (MAP) Pulse Ox O2 Delivery O2 Flow Rate FiO2 04/29/20 04:00 85 14 95 Nasal Cannula 2.00 04/29/20 03:00 90 24 126/58 (80) 94 Nasal Cannula 2.00 04/29/20 02:00 84 21 117/68 (84) 93 Nasal Cannula 2.00 04/29/20 01:49 93 Nasal Cannula 2.00 04/29/20 01:00 100 04/29/20 01:00 94 16 100/74 (83) 92 Nasal Cannula 2.00 04/29/20 00:00 96 35 130/64 (86) 91 Nasal Cannula 2.00 04/29/20 00:00 36.5 04/28/20 23:00 97 21 122/60 (80) 92 Nasal Cannula 2.00 04/28/20 22:30 92 127/60 (82) 95 Nasal Cannula 2.00 04/28/20 22:00 86 131/74 (93) 98 Nasal Cannula 2.00 04/28/20 21:54 86 04/28/20 21:45 90 31 133/86 (102) 98 Nasal Cannula 2.00 04/28/20 21:43 36.5 89 98 04/28/20 21:30 102 17 133/38 (69) 92 Nasal Cannula 2.00 04/28/20 21:15 36.7 92 35 138/65 (89) 98 Nasal Cannula 2.00 04/28/20 21:00 Nasal Cannula 2.00 04/28/20 20:39 36.5 89 22 126/64 (103) 98 Nasal Cannula 2.00 04/28/20 17:05 36.7 108 35 147/81 (103) Room Air I & O 04/29/20 07:00 Intake Total 2820 ml Output Total 400 ml Balance 2420 ml Height & Weight Height: '" Weight: lbs. oz. kg; 37.52 BMI Method: Capillary Refill: Less Than 3 Seconds Gastrointestinal: non tender, soft Results Lab Laboratory Tests 04/28/20 17:50 04/29/20 05:10 Assessment/Plan Assessment/Plan Persistent bilateral PNA with hypoxia - recent hospitalization/failed out pt treatment -COVID PCR is pending -CT chest reviewed -Merrem -perrin cultures pending -D/C doxy. continue Zosyn and start Vancomycin -MRSA nasal swab pending -Will plan bronchoscopy tomorrow morning if COVID PCR is negative -Influenza is negative -COVID PCR is pending -Rapid COVID is negative Metabolic acidosis -Repeat LA -IVF Hyperkalemia -mild -Monitor IDDM JAIME SKAGGS DO Apr 29, 2020 06:06
[2020-04-29] MEDS ORDERED: PHARMACY TO DOSE IV SCH (06:15)
[2020-04-29] MEDS: 1/2 NS W/KCL 20 MEQ/L 1,000 ML IV SCH ×3 (07:20→20:05)
[2020-04-29] MEDS: methylPREDNISolone 40 MG/ML (Solu-MEDROL) VIAL IV SCH ×2 (08:23→21:07)
[2020-04-29] MEDS: inSUlin ASPART (NovoLOG) 1 UNIT/0.01 ML (CHARGE PER UNIT) SC SCH ×4 (08:23→21:08)
[2020-04-29] MEDS: SENNA W/DOCUSATE (SENOKOT S) TABLET PO SCH ×2 (08:30→21:08)
[2020-04-29] MEDS: ALPRAZolam 0.25 MG (XANAX) TAB PO PRN ×2 (09:50→20:04)
[2020-04-29] MEDS: FLUTICASONE/SALMETEROL 113-14 (AIRDUO RespiCLICK) IH SCH ×2 (10:38→21:50)
--- NOTE | 2020-04-29 10:49 | Physician Query Clarification ---
PQ-Intro New Diagnosis Admission/Discharge Admission Date: Apr 28, 2020 at 20:15 Discharge Date: Dr. Rodriguez, The medical record reflects the following clinical scenario: History/Risk Factors: persistent bilateral pneumonia, hypoxia Clinical Findings: T 36.7, P 108, R 35, WBC 16.0, Lactic 2.09 Treatment: IV Cefepime, IV Vancomycin Question: What condition best reflects the above clinical scenario? Please document a response in the Progress Noter or Discharge Summary. 1. Sepsis 2. No sepsis 3. Other, with explanation of the clinical findings. 4. Clinically undetermined, no explanation for the clinical findings. PHYSICIAN RESPONSE What condition reflects above: 1 Please remember a lack of response to the above will prompt a phone page by CDI/Coding staff. In responding to this query, please exercise your independent professional judgment. The purpose of this communication is to more accurately reflect the complexity of your patients condition. The fact that a question is asked does not imply that any particular answer is desired or expected. Thank you for your timely response to this clarification. Requestors name: [email or web address] THIS PHYSICIAN QUERY FORM IS A PERMANENT PART OF THE MEDICAL RECORD CORY DUONG Apr 29, 2020 10:49 JONATAN RODRIGUEZ DO Apr 29, 2020 12:21
--- NOTE | 2020-04-29 10:57 | Physician Query Clarification ---
PQ-Intro New Diagnosis Admission/Discharge Admission Date: Apr 28, 2020 at 20:15 Discharge Date: Dr. Rodriguez, The medical record reflects the following clinical scenario: History/Risk Factors: persistent bilateral pneumonia, hypoxia Clinical Findings: sats 88% on room air, decreased breath sounds, accessary muscle use Treatment: 2 L NC, IV Cefepime, IV Vancomycin Question: What condition best reflects the above clinical scenario? Please document a response in the Progress Noter or Discharge Summary. 1. Acute respiratory failure with hypoxia 2. No acute respiratory failure. Hypoxia only 3. Other, with explanation of the clinical findings. 4. Clinically undetermined, no explanation for the clinical findings. PHYSICIAN RESPONSE What condition reflects above: 1 Please remember a lack of response to the above will prompt a phone page by CDI/Coding staff. In responding to this query, please exercise your independent professional judgment. The purpose of this communication is to more accurately reflect the complexity of your patients condition. The fact that a question is asked does not imply that any particular answer is desired or expected. Thank you for your timely response to this clarification. Requestors name: [email or web address] THIS PHYSICIAN QUERY FORM IS A PERMANENT PART OF THE MEDICAL RECORD CORY DUONG Apr 29, 2020 10:57 JONATAN RODRIGUEZ DO Apr 29, 2020 12:21
[2020-04-29] MEDS ORDERED: NON-FORMULARY MEDICATION 1 EA EA (Dulaglutide (Trulicity) 1.5 MG) SQ SCH (12:00)
[2020-04-29] MEDS ORDERED: GABAPENTIN 300 MG (NEURONTIN) CAP PO PRN (12:00)
[2020-04-29] MEDS: inSUlin ASPART (NovoLOG) 1 UNIT/0.01 ML (CHARGE PER UNIT) SQ SCH ×2 (12:38→17:40)
--- NOTE | 2020-04-29 12:59 | History & Physical-Hospitalist ---
[facility] 04/29/20 1259: History of Present Illness HPI/Chief Complaint Almaz is a 65 y/o female that was admitted to [facility] for progressive shortness of breath. Over the last month the patient has been dealing with PNA. She has been dealing with this as an outpatient and inpatient. She was discharged from the hospital last week for the same complaint. She states she completed her outpatient abx but still feels short of breath. She has never had recurrent PNA in the past. She denies smoking, COPD or asthma. Has never required oxygen. She feels the albuterol helps. Denies any associated symptoms. She has had multiple COVID screens performed all of which are negative. She denies any discoloration in sputum. No F/C, muscle aches or chest pain at this time. She was on 2L NC earlier today but has now taken it of and is doing fine. She was upset because she could not have visitors at this time. Rapid COVID, Flu and UA were all negative. CXR shows BL pulmonary infiltrates worse when compared to 04/[address] shows BL infiltrate consistent with BL PNA. PMH includes HTN, HCL and DM. Source: patient Exam Limitations: no limitations Date Seen 04/29/20 Time Seen by a Provider: 10:25 Attending Physician Socorro Rodriguez DO PCP No,Local Physician Referring Physician Date of Admission Apr 28, 2020 at 20:15 Home Medications & Allergies Home Medications Reviewed patient Home Medication Reconciliation performed by pharmacy medication reconciliations distribution field technician and/or nursing. Patients Allergies have been reviewed. Allergies Allergies Coded Allergies No Known Drug Allergies (Unverified04/16/20) Past Xhoplxl-Syhdmp-Uvferm Hx Patient Social History Alcohol Use: Denies Use Recreational Drug Use: No Drug of Choice: DENIES Smoking Status: Current Everyday Smoker Former Smoker, Quit: Feb 19, 2003 Type Used: Cigarettes 2nd Hand Smoke Exposure: No Recent Foreign Travel: No Contact w/other who traveled: No Recent Hopitalizations: No Recent Infectious Disease Expo: No Immunizations Up To Date Date of Influenza Vaccine: Nov 20, 2019 Seasonal Allergies Seasonal Allergies: Yes Past Medical History Surgeries: Adenoidectomy, Appendectomy, Hysterectomy, Tonsillectomy Cardiac: High Cholesterol, Hypertension Hysterectomy, Menopausal Musculoskeletal: Chronic Back Pain, Fractures Endocrine: Diabetes, Insulin dep Psychosocial: Anxiety History of Blood Disorders: No Review of Systems Constitutional: weakness EENTM: No hearing loss, No blurred vision Respiratory: cough (minimal ), short of breath, other (no sputum production) Cardiovascular: no symptoms reported Gastrointestinal: no symptoms reported Genitourinary: no symptoms reported Musculoskeletal: no symptoms reported Skin: no symptoms reported Psychiatric/Neurological: No Symptoms Reported Physical Exam Physical Exam Vital Signs Vital Signs - First Documented 04/28/20 04/28/20 17:05 20:39 Temp 36.7 Pulse 108 Resp 35 B/P (MAP) 147/81 (103) Pulse Ox 98 O2 Delivery Room Air O2 Flow Rate 2.00 Capillary Refill : Less Than 3 Seconds Height, Weight, BMI Height: '" Weight: lbs. oz. kg; 37.52 BMI Method: General Appearance: No Apparent Distress, Anxious Neck: Normal Inspection, Non Tender Respiratory: Chest Non Tender, No Accessory Muscle Use, No Respiratory Distress, Wheezing (minimal ) Cardiovascular: Regular Rate, Rhythm, Normal Peripheral Pulses Gastrointestinal: Non Tender, Soft Extremity: Normal Capillary Refill, No Calf Tenderness Neurologic/Psychiatric: Alert, Oriented x3 Skin: Normal Color, Warm/Dry Lymphatic: No Adenopathy Results Results/Procedures Labs Laboratory Tests 04/28/20 17:50 04/29/20 05:10 Patient resulted labs reviewed. Assessment/Plan Assessment and Plan Assessment: 1. Bilateral PNA 2. HTN - continue home meds 3. High Cholesterol - continue home meds 4. Anxiety 5. DM - sliding scale 6. Hyperkalemia - Mild - monitor 7. Leukocytosis - improving, will monitor Plan 04/29 - Continue abx of meropenom and vancomycin - Order vanc trough - Continue meds for HTN and HLD - sliding scale for DM - Pending COVID PCR - Bronchoscopy pending COVID results - Monitor electrolytes - appreciate pulmonary recs SOCORRO RODRIGUEZ DO 04/30/20 0527: History of Present Illness HPI/Chief Complaint Patient was seen and reviewed data. Patient very tearful about isolation PCR pending Dr Arechiga will perform BAL Source: patient Exam Limitations: no limitations Past Fudjkzc-Hrcknn-Ygoiap Hx Past Med/Social Hx: Reviewed Nursing Past Med/Soc Hx, Reviewed and Corrections made Patient Social History Marrital Status: Employed/Student: unemployed Alcohol Use: Denies Use Smoking Status: Former Smoker Review of Systems Constitutional: see HPI, weakness Respiratory: cough (minimal ), short of breath Physical Exam Physical Exam General Appearance: No Apparent Distress, Chronically ill Respiratory: No Accessory Muscle Use, No Respiratory Distress, Decreased Breath Sounds, Wheezing (minimal ) Cardiovascular: Regular Rate, Rhythm Assessment/Plan Admission Diagnosis Assessment: Recurrent PNA Sepsis COVID swab pending COPD Former smoker Plan: Monitor closely ICU BAL Admission Status: Inpatient Order (span 2 midnights) Reason for Inpatient Admission: recurrent PNA Diagnosis/Problems Diagnosis/Problems (1) Pneumonia Status: Acute (2) Hypoxia Status: Acute (3) IDDM (insulin dependent diabetes mellitus) Status: Chronic Supervisory-Addendum Brief Verification & Attestation Participated in pt care: history, MDM, physical Personally performed: exam, history, MDM, supervision of care Care discussed with: Medical Student Procedures: n/a Results interpretation: Verified all documentation Verification and Attestation of Medical Student E/M Service A medical student performed and documented this service in my presence. I reviewed and verified all information documented by the medical student and made modifications to such information, when appropriate. I personally performed the physical exam and medical decision making. Socorro Rodriguez, Apr 30, 2020,05:27 [facility] Apr 29, 2020 12:59 SOCORRO RODRIGUEZ DO Apr 30, 2020 05:27
[2020-04-29] MEDS ORDERED: VANCOMYCIN 1500 MG/NS 500 ML IVPB IV SCH ×2 (15:00)
[2020-04-29] MEDS ORDERED: RT-ALBUINH IH (16:10)
[2020-04-29] MEDS ORDERED: BUDE10.22 IH (16:10)
[2020-04-29] MEDS: ENOXAPARIN 40 MG/0.4 ML (LOVENOX) SYR SC SCH (21:07)
[2020-04-30] VITALS (9 sets, daily range): BP systolic 97–189; BP diastolic 49–79
[2020-04-30] MEDS: RT-ALBUTEROL INHALER HFA (VENTOLIN HFA) 18 GM IH SCH ×3 (01:45→10:02)
[2020-04-30 02:54] LABS: BASOPHILS # (AUTO) 0.1 10^3/uL (0.0-0.1); BASOPHILS % (AUTO) 0 % (0-10); EOSINOPHILS % (AUTO) 0 % (0-10); HEMATOCRIT 36 % (35-52); HEMOGLOBIN 11.5 g/dL (11.5-16.0); LYMPHOCYTES # (AUTO) 1.1 10^3/uL (1.0-4.0); LYMPHOCYTES % (AUTO) 5 % (12-44); MEAN CORPUSCULAR HEMOGLOBIN 28 pg (25-34); MEAN CORPUSCULAR HGB CONC 32 g/dL (32-36); MEAN CORPUSCULAR VOLUME 88 fL (80-99); MEAN PLATELET VOLUME 10.8 fL (9.0-12.2); MONOCYTES # (AUTO) 0.6 10^3/uL (0.0-1.0); MONOCYTES % (AUTO) 3 % (0-12); NEUTROPHILS # (AUTO) 19.6 10^3/uL (1.8-7.8); NEUTROPHILS % (AUTO) 91 % (42-75); PLATELET COUNT 353 10^3/uL (130-400); WHITE BLOOD COUNT 21.5 10^3/uL (4.3-11.0)
[2020-04-30] MEDS: ALPRAZolam 0.25 MG (XANAX) TAB PO PRN ×2 (02:54→20:48)
[2020-04-30 03:10] LABS: ALBUMIN 3.2 GM/DL (3.2-4.5); CHLORIDE 112 MMOL/L (98-107); POTASSIUM 4.3 MMOL/L (3.6-5.0); SODIUM 141 MMOL/L (135-145)
[2020-04-30 03:12] LABS: GLUCOSE 200 MG/DL (70-105); TOTAL PROTEIN 6.1 GM/DL (6.4-8.2)
[2020-04-30 03:13] LABS: CARBON DIOXIDE 19 MMOL/L (21-32)
[2020-04-30 03:14] LABS: BILIRUBIN,TOTAL 0.3 MG/DL (0.1-1.0)
[2020-04-30 03:16] LABS: ALKALINE PHOSPHATASE 79 U/L (40-136); GFR ESTIMATED > 60
[2020-04-30 03:17] LABS: BUN/CREATININE RATIO 16
[2020-04-30 03:19] LABS: ALANINE AMINOTRANSFERASE 25 U/L (0-55)
--- NOTE | 2020-04-30 04:03 | Pulmonary Progress Note ---
Subjective Time Seen by a Provider: 03:58 Sepsis Event Evaluation Height, Weight, BMI Height: '" Weight: lbs. oz. kg; 37.52 BMI Method: Focused Exam Lactate Level 04/28/20 17:50: Lactic Acid Level 2.09*H 04/28/20 20:00: Lactic Acid Level 1.54 04/29/20 06:50: Lactic Acid Level 1.55 Exam Exam Vital Signs Date Time Temp Pulse Resp B/P (MAP) Pulse Ox O2 Delivery O2 Flow Rate FiO2 04/30/20 01:45 95 Room Air 04/30/20 01:00 75 04/30/20 00:00 87 128/79 (95) 96 Nasal Cannula 2.00 04/29/20 23:00 84 93 Nasal Cannula 2.00 04/29/20 22:00 92 31 94 Room Air 04/29/20 21:52 95 Room Air 04/29/20 21:51 95 Room Air 04/29/20 21:00 92 24 124/87 (99) 95 Room Air 04/29/20 20:00 96 Room Air 04/29/20 20:00 85 24 91 Room Air 04/29/20 19:30 36.4 98 22 126/62 (83) 94 Room Air 04/29/20 19:00 107 19 126/62 (83) 94 Room Air 04/29/20 19:00 113 04/29/20 18:36 92 Room Air 04/29/20 16:13 36.4 100 22 124/53 (76) 94 Room Air 04/29/20 14:30 92 Nasal Cannula 2.00 04/29/20 14:01 36.8 105 92 28 04/29/20 13:02 95 04/29/20 12:41 36.8 95 18 130/70 (90) 93 Nasal Cannula 2.00 04/29/20 10:39 92 Room Air 04/29/20 10:38 92 Room Air 04/29/20 10:36 35.8 96 25 135/67 (89) 94 Nasal Cannula 2.00 04/29/20 08:20 95 Nasal Cannula 2.00 04/29/20 08:00 Nasal Cannula 2.00 04/29/20 07:17 98 Nasal Cannula 2.00 04/29/20 07:03 74 04/29/20 07:00 106 93 Nasal Cannula 2.00 04/29/20 06:00 82 14 93 Nasal Cannula 2.00 04/29/20 05:00 83 26 95 Nasal Cannula 2.00 04/29/20 04:00 85 14 95 Nasal Cannula 2.00 I & O 04/30/20 07:00 Intake Total 1400 ml Output Total 2200 ml Balance -800 ml Height & Weight Height: '" Weight: lbs. oz. kg; 37.52 BMI Method: General Appearance: No Apparent Distress, Anxious Neck: Normal Inspection, Non Tender Respiratory: Chest Non Tender, No Accessory Muscle Use, No Respiratory Distress, Wheezing (minimal ) Cardiovascular: Regular Rate, Rhythm, Normal Peripheral Pulses Capillary Refill: Less Than 3 Seconds Gastrointestinal: non tender, soft Extremity: Normal Capillary Refill, No Calf Tenderness Neurologic/Psychiatric: Alert, Oriented x3 Skin: Normal Color, Warm/Dry Lymphatic: No Adenopathy Results Lab Laboratory Tests 04/28/20 17:50 04/29/20 05:10 04/30/20 02:45 Assessment/Plan Assessment/Plan Persistent bilateral PNA with hypoxia - recent hospitalization/failed out pt treatment -COVID PCR is pending -CT chest reviewed -Merrem -perrin cultures pending -D/C doxy. continue Merrem and Vancomycin -MRSA nasal swab pending -Will do bronchoscopy this morning -Influenza is negative -COVID PCR is negative -Rapid COVID is negative Worsening leukocytosis - probably secondary to steroids -Check PCT Metabolic acidosis -Repeat LA -IVF Hyperkalemia -mild -Monitor IDDM JAIME SKAGGS DO Apr 30, 2020 04:03
[2020-04-30] MEDS: 1/2 NS W/KCL 20 MEQ/L 1,000 ML IV SCH (04:21)
[2020-04-30] MEDS: MEROPENEM 500 MG/SWFI 10 ML IV PUSH IV SCH ×8 (04:21→23:49)
[2020-04-30] MEDS ORDERED: MIDAZOLAM 5 MG/5 ML (VERSED) VIAL ONE (05:45)
[2020-04-30] MEDS ORDERED: fentaNYL INJ 100 MCG/2 ML AMP ONE (05:45)
[2020-04-30] MEDS: FLUTICASONE/SALMETEROL 113-14 (AIRDUO RespiCLICK) IH SCH ×2 (05:59→20:58)
[2020-04-30] MEDS ORDERED: LACTATED RINGERS 1,000 ML IV ONE (06:17)
[2020-04-30] MEDS: inSUlin ASPART (NovoLOG) 1 UNIT/0.01 ML (CHARGE PER UNIT) SC SCH ×4 (06:42→20:48)
--- NOTE | 2020-04-30 06:43 | Pulmonary Procedures ---
Pulmonary Procedures Date of Procedure Date of Service: Apr 30, 2020 Bronch Bronchoscopy with bilateral wash. Preop DX persistent PNA Postop DX: same No endobronchial mass Complications: none After informed consent obtained and formal time out pt was sedated using Fentanyl and Versed. Bronchoscope was advanced through the nare and vocal cords. 1% lidocaine was used to anesthetize vocal cords, epiglottis, hill, and left/right main stem bronchus. An anatomical tour was undertaken down to the segmental bronchi bilaterally. No endobronchial lesions noted. bilateral wash were obtained. Pt tolerated procedure well. No complications noted. Stat CXR is pending. JAIME SKAGGS DO Apr 30, 2020 06:43
--- NOTE | 2020-04-30 07:13 | Diagnostic Imaging Report ---
INDICATION: Bronchoscopy. COMPARISON: 04/30/2020 at 2:00 a.m. FINDINGS: Single view of the chest demonstrates no post procedure pneumothorax or effusion. Aeration of lungs is unchanged. IMPRESSION: No post procedure pneumothorax. Dictated by: Dictated on workstation # [id number]
--- NOTE | 2020-04-30 07:19 | Diagnostic Imaging Report ---
INDICATION: Pneumonia COMPARISON: 04/28/2020 FINDINGS: Single view of the chest demonstrates persistent but decreased left upper lobe infiltrates. Stable basilar infiltrates. The heart is prominent without pulmonary edema. There is no pneumothorax or large effusion. PICC line stable. IMPRESSION: 1. Improving aeration left upper lobe 2. Stable basilar infiltrates. Dictated by: Dictated on workstation # [id number]
[2020-04-30] MEDS: NON-FORMULARY MEDICATION 1 EA EA (Lisinopril 2.5 MG) PO SCH (09:00)
[2020-04-30] MEDS: CYANOCOBALAMIN 1,000 MCG (VITAMIN B-12) TABLET PO SCH (09:05)
[2020-04-30] MEDS: SENNA W/DOCUSATE (SENOKOT S) TABLET PO SCH ×2 (09:05→20:47)
[2020-04-30] MEDS: inSUlin ASPART (NovoLOG) 1 UNIT/0.01 ML (CHARGE PER UNIT) SQ SCH ×3 (09:08→17:40)
[2020-04-30] MEDS: methylPREDNISolone 40 MG/ML (Solu-MEDROL) VIAL IV SCH ×2 (09:35→20:48)
[2020-04-30] MEDS ORDERED: LIDOCAINE JELLY 2% 6 ML SYRINGE MM ONE (09:53)
[2020-04-30] MEDS ORDERED: LIDOCAINE PF 2% 5 ML (XYLOCAINE) VIAL INJ ONE (09:53)
[2020-04-30] MEDS ORDERED: LIDOCAINE PF 1% 2 ML AMP IJ ONE (09:53)
[2020-04-30] MEDS ORDERED: ACETAMINOPHEN 325 MG TABLET PO PRN (10:15)
[2020-04-30] MEDS ORDERED: ANIDULAFUNGIN INJECTION 200 MG in NS (IVPB) 250 ML IV ONE (11:45)
--- NOTE | 2020-04-30 13:01 | Progress Note - Hospitalist ---
[facility] 04/30/20 1301: Subjective HPI/CC On Admission Date Seen by Provider: Apr 30, 2020 Time Seen by Provider: 10:15 Patient was seen and reviewed data. Patient very tearful about isolation PCR pending Dr Arechiga will perform BAL Subjective/Events-last exam Almaz is sitting in bed and resting post bronchoscopy. She is feeling better and feels she is breathing better. NPO since midnight. She will start a diet this morning. COVID (-). Vitals stable. she is urinating without issue. No BM yet. Still on abx.. Review of Systems General: No Chills Pulmonary: No Dyspnea, No Cough Cardiovascular: No: Chest Pain, Palpitations Gastrointestinal: No: Nausea, Vomiting, Abdominal Pain Genitourinary: No Dysuria Focused Exam Lactate Level 04/28/20 17:50: Lactic Acid Level 2.09*H 04/28/20 20:00: Lactic Acid Level 1.54 04/29/20 06:50: Lactic Acid Level 1.55 Objective Exam Vital Signs Vital Signs Date Time Temp Pulse Resp B/P (MAP) Pulse Ox O2 Delivery O2 Flow Rate FiO2 04/30/20 12:39 86 04/30/20 12:00 25 100/49 (66) 96 Nasal Cannula 2.00 04/30/20 11:12 35.4 04/29/20 14:01 28 Capillary Refill : Less Than 3 Seconds General Appearance: No Apparent Distress Respiratory: Chest Non Tender, No Accessory Muscle Use, No Respiratory Distress Cardiovascular: Regular Rate, Rhythm, No Edema, Normal Peripheral Pulses Gastrointestinal: Normal Bowel Sounds, Non Tender, Soft Extremity: Normal Capillary Refill, No Calf Tenderness Neurologic/Psychiatric: Alert, Oriented x3 Skin: Normal Color, Warm/Dry Lymphatic: No Adenopathy Results/Procedures Lab Laboratory Tests 04/30/20 02:45 Patient resulted labs reviewed. Assessment/Plan Assessment and Plan Assess & Plan/Chief Complaint Assessment: 1. Bilateral PNA 2. HTN - continue home meds 3. High Cholesterol - continue home meds 4. Anxiety 5. DM - sliding scale 6. Hyperkalemia - Mild - monitor 7. Leukocytosis - improving, will monitor Plan 04/29 - Continue abx of meropenom and vancomycin - Order vanc trough - Continue meds for HTN and HLD - sliding scale for DM - Pending COVID PCR - Bronchoscopy pending COVID results - Monitor electrolytes - appreciate pulmonary recs Plan 04/30 - continue meropenom and adding eraxis - d/c vanc - Continue meds for HTN and HLD - sliding scale - move to cardiac unit, (-) COVID - received bronchoscopy today - monitor electrolytes - appreciate pulmonary recs - pending lung cultures. SOCORRO RODRIGUEZ DO 05/01/202034: Subjective Subjective/Events-last exam Patient improved No tearfulness Bronch went well Review of Systems General: Fatigue Pulmonary: Dyspnea Objective Exam General Appearance: No Apparent Distress, WD/WN, Chronically ill Respiratory: Chest Non Tender, Lungs Clear, Normal Breath Sounds, No Accessory Muscle Use, No Respiratory Distress Cardiovascular: Regular Rate, Rhythm, No Edema, No Gallop, No JVD, No Murmur, Normal Peripheral Pulses Neurologic/Psychiatric: Alert, Oriented x3, No Motor/Sensory Deficits, Normal Mood/Affect Assessment/Plan Assessment and Plan Assess & Plan/Chief Complaint Await BAL Monitor closely Supervisory-Addendum Brief Verification & Attestation Participated in pt care: history, MDM, physical Personally performed: exam, history, MDM, supervision of care Care discussed with: Medical Student Procedures: n/a Results interpretation: Verified all documentation Verification and Attestation of Medical Student E/M Service A medical student performed and documented this service in my presence. I r eviewed and verified all information documented by the medical student and made modifications to such information, when appropriate. I personally performed the physical exam and medical decision making. Socorro Rodriguez, May 01, 2020,20:34 [facility] Apr 30, 2020 13:01 SOCORRO RODRIGUEZ DO May 01, 2020 20:35
[2020-04-30] MEDS: RT-ALBUTEROL SULF 2.5 MG/3 ML PRE-MIX VIAL INH SCH ×2 (14:21→20:51)
[2020-04-30] MEDS: ENOXAPARIN 40 MG/0.4 ML (LOVENOX) SYR SC SCH (20:48)
[2020-04-30] MEDS ORDERED: MEROPENEM 500 MG VIAL (MERREM) IV ONE (23:38)
[2020-05-01] MEDS ORDERED: MEROPENEM 500 MG VIAL (MERREM) IV ONE ×2 (04:44→21:55)
[2020-05-01] MEDS ORDERED: WATER (STERILE) FOR INJECTION 10 ML ONE ×2 (04:44→21:55)
[2020-05-01] MEDS: MEROPENEM 500 MG/SWFI 10 ML IV PUSH IV SCH ×8 (04:55→22:11)
[2020-05-01 04:56] VITALS: BP 100/49
[2020-05-01 05:19] LABS: BASOPHILS % (AUTO) 0 % (0-10); EOSINOPHILS % (AUTO) 0 % (0-10); HEMATOCRIT 35 % (35-52); HEMOGLOBIN 11.1 g/dL (11.5-16.0); LYMPHOCYTES # (AUTO) 1.2 10^3/uL (1.0-4.0); LYMPHOCYTES % (AUTO) 6 % (12-44); MEAN CORPUSCULAR HEMOGLOBIN 28 pg (25-34); MEAN CORPUSCULAR HGB CONC 32 g/dL (32-36); MEAN CORPUSCULAR VOLUME 89 fL (80-99); MEAN PLATELET VOLUME 10.8 fL (9.0-12.2); MONOCYTES # (AUTO) 0.4 10^3/uL (0.0-1.0); MONOCYTES % (AUTO) 2 % (0-12); NEUTROPHILS # (AUTO) 18.5 10^3/uL (1.8-7.8); NEUTROPHILS % (AUTO) 91 % (42-75); PLATELET COUNT 352 10^3/uL (130-400); WHITE BLOOD COUNT 20.4 10^3/uL (4.3-11.0)
[2020-05-01 05:34] LABS: ALBUMIN 2.9 GM/DL (3.2-4.5); CHLORIDE 110 MMOL/L (98-107); POTASSIUM 4.3 MMOL/L (3.6-5.0); SODIUM 139 MMOL/L (135-145)
[2020-05-01 05:35] LABS: CALCIUM 8.6 MG/DL (8.5-10.1)
[2020-05-01 05:36] LABS: GLUCOSE 214 MG/DL (70-105); TOTAL PROTEIN 5.4 GM/DL (6.4-8.2)
[2020-05-01 05:37] LABS: CARBON DIOXIDE 20 MMOL/L (21-32)
[2020-05-01 05:38] LABS: BILIRUBIN,TOTAL 0.2 MG/DL (0.1-1.0)
[2020-05-01 05:40] LABS: ALKALINE PHOSPHATASE 68 U/L (40-136); CREATININE SERUM 0.89 MG/DL (0.60-1.30); GFR ESTIMATED > 60
[2020-05-01 05:41] LABS: BUN/CREATININE RATIO 17
[2020-05-01 05:43] LABS: ALANINE AMINOTRANSFERASE 29 U/L (0-55)
[2020-05-01] MEDS: RT-ALBUTEROL SULF 2.5 MG/3 ML PRE-MIX VIAL INH SCH ×3 (07:06→22:13)
[2020-05-01] MEDS: FLUTICASONE/SALMETEROL 113-14 (AIRDUO RespiCLICK) IH SCH ×2 (07:08→22:14)
[2020-05-01] MEDS: inSUlin ASPART (NovoLOG) 1 UNIT/0.01 ML (CHARGE PER UNIT) SC SCH ×4 (07:27→20:10)
[2020-05-01] MEDS: inSUlin ASPART (NovoLOG) 1 UNIT/0.01 ML (CHARGE PER UNIT) SQ SCH ×3 (07:28→16:10)
[2020-05-01 07:46] VITALS: BP 111/67
[2020-05-01] MEDS: CYANOCOBALAMIN 1,000 MCG (VITAMIN B-12) TABLET PO SCH (09:36)
[2020-05-01] MEDS: ANIDULAFUNGIN INJECTION 100 MG in NS (IVPB) 100 ML IV SCH (09:36)
[2020-05-01] MEDS: methylPREDNISolone 40 MG/ML (Solu-MEDROL) VIAL IV SCH ×2 (09:37→22:10)
[2020-05-01] MEDS: SENNA W/DOCUSATE (SENOKOT S) TABLET PO SCH ×2 (09:40→19:44)
[2020-05-01] MEDS: NON-FORMULARY MEDICATION 1 EA EA (Lisinopril 2.5 MG) PO SCH (09:42)
--- NOTE | 2020-05-01 11:41 | Progress Note - Hospitalist ---
Subjective HPI/CC On Admission Date Seen by Provider: May 01, 2020 Time Seen by Provider: 11:45 Patient was seen and reviewed data. Patient very tearful about isolation PCR pending Dr Arechiga will perform BAL Subjective/Events-last exam Patient doing well Still on broad spectrum abx BAL Cx pending No issues Breathing better Review of Systems General: Fatigue Focused Exam Lactate Level Objective Exam Vital Signs Vital Signs Date Time Temp Pulse Resp B/P (MAP) Pulse Ox O2 Delivery O2 Flow Rate FiO2 05/02/20 07:12 93 Room Air 05/02/20 04:12 35.8 77 20 112/70 (84) 04/30/20 12:00 2.00 04/29/20 14:01 28 Capillary Refill : Less Than 3 Seconds General Appearance: No Apparent Distress, WD/WN Respiratory: Chest Non Tender, Lungs Clear, Normal Breath Sounds, No Accessory Muscle Use, No Respiratory Distress Cardiovascular: Regular Rate, Rhythm, No Edema, No Gallop, No JVD, No Murmur, Normal Peripheral Pulses Neurologic/Psychiatric: Alert, Oriented x3, No Motor/Sensory Deficits, Normal Mood/Affect Results/Procedures Lab Laboratory Tests 05/02/20 05:10 Patient resulted labs reviewed. Assessment/Plan Assessment and Plan Assess & Plan/Chief Complaint Assessment: Recurrent PNA s/p bronch DM HTN Plan: MOnitor closely Abx BAL Cx Diagnosis/Problems Diagnosis/Problems (1) Pneumonia Status: Acute (2) Hypoxia Status: Acute (3) IDDM (insulin dependent diabetes mellitus) Status: Chronic JONATAN DALY DO May 01, 2020 11:41
[2020-05-01 12:13] VITALS: BP 105/64
[2020-05-01] MEDS ORDERED: TROUGH ORDER-PHARMACY XX ONE (14:00)
[2020-05-01 16:18] VITALS: BP 122/71
[2020-05-01 20:06] VITALS: BP 103/65
[2020-05-01] MEDS: ENOXAPARIN 40 MG/0.4 ML (LOVENOX) SYR SC SCH (20:11)
[2020-05-01] MEDS: ALPRAZolam 0.25 MG (XANAX) TAB PO PRN (20:11)
[2020-05-02] VITALS (7 sets, daily range): BP systolic 94–124; BP diastolic 48–70
[2020-05-02] MEDS ORDERED: MEROPENEM 500 MG VIAL (MERREM) IV ONE ×4 (04:08→21:38)
[2020-05-02] MEDS ORDERED: WATER (STERILE) FOR INJECTION 10 ML ONE ×4 (04:08→21:38)
[2020-05-02] MEDS: MEROPENEM 500 MG/SWFI 10 ML IV PUSH IV SCH ×8 (04:21→21:48)
[2020-05-02 05:19] LABS: BASOPHILS % (AUTO) 0 % (0-10); EOSINOPHILS % (AUTO) 0 % (0-10); HEMATOCRIT 36 % (35-52); HEMOGLOBIN 11.2 g/dL (11.5-16.0); LYMPHOCYTES # (AUTO) 1.1 10^3/uL (1.0-4.0); LYMPHOCYTES % (AUTO) 7 % (12-44); MEAN CORPUSCULAR HEMOGLOBIN 28 pg (25-34); MEAN CORPUSCULAR HGB CONC 31 g/dL (32-36); MEAN CORPUSCULAR VOLUME 89 fL (80-99); MEAN PLATELET VOLUME 10.7 fL (9.0-12.2); MONOCYTES # (AUTO) 0.4 10^3/uL (0.0-1.0); MONOCYTES % (AUTO) 3 % (0-12); NEUTROPHILS # (AUTO) 14.7 10^3/uL (1.8-7.8); NEUTROPHILS % (AUTO) 90 % (42-75); PLATELET COUNT 326 10^3/uL (130-400); WHITE BLOOD COUNT 16.4 10^3/uL (4.3-11.0)
[2020-05-02 05:29] LABS: POTASSIUM 4.5 MMOL/L (3.6-5.0)
[2020-05-02 05:30] LABS: CALCIUM 8.7 MG/DL (8.5-10.1)
[2020-05-02 05:31] LABS: TOTAL PROTEIN 5.6 GM/DL (6.4-8.2)
[2020-05-02 05:33] LABS: BILIRUBIN,TOTAL 0.2 MG/DL (0.1-1.0)
[2020-05-02 05:35] LABS: CREATININE SERUM 0.99 MG/DL (0.60-1.30)
[2020-05-02] MEDS: inSUlin ASPART (NovoLOG) 1 UNIT/0.01 ML (CHARGE PER UNIT) SC SCH ×4 (06:48→20:29)
[2020-05-02] MEDS: inSUlin ASPART (NovoLOG) 1 UNIT/0.01 ML (CHARGE PER UNIT) SQ SCH ×3 (06:49→16:44)
[2020-05-02] MEDS: RT-ALBUTEROL SULF 2.5 MG/3 ML PRE-MIX VIAL INH SCH ×3 (07:12→18:19)
[2020-05-02] MEDS: FLUTICASONE/SALMETEROL 113-14 (AIRDUO RespiCLICK) IH SCH ×2 (07:12→18:19)
[2020-05-02] MEDS: ANIDULAFUNGIN INJECTION 100 MG in NS (IVPB) 100 ML IV SCH (08:56)
[2020-05-02] MEDS: CYANOCOBALAMIN 1,000 MCG (VITAMIN B-12) TABLET PO SCH (08:56)
[2020-05-02] MEDS: NON-FORMULARY MEDICATION 1 EA EA (Lisinopril 2.5 MG) PO SCH (09:00)
[2020-05-02] MEDS: methylPREDNISolone 40 MG/ML (Solu-MEDROL) VIAL IV SCH ×2 (09:03→21:48)
[2020-05-02] MEDS: SENNA W/DOCUSATE (SENOKOT S) TABLET PO SCH ×2 (09:04→20:26)
--- NOTE | 2020-05-02 11:14 | Progress Note - Hospitalist ---
Subjective HPI/CC On Admission Date Seen by Provider: May 02, 2020 Time Seen by Provider: 11:20 Patient was seen and reviewed data. Patient very tearful about isolation PCR pending Dr Arechiga will perform BAL Subjective/Events-last exam Patient doing well Less dyspnea No fever No pain reported Review of Systems General: Fatigue Pulmonary: Dyspnea Objective Exam Vital Signs Vital Signs Date Time Temp Pulse Resp B/P (MAP) Pulse Ox O2 Delivery O2 Flow Rate FiO2 05/02/20 18:19 94 Room Air 05/02/20 15:50 36.1 100 18 124/58 (80) 04/30/20 12:00 2.00 04/29/20 14:01 28 Capillary Refill : Less Than 3 Seconds General Appearance: No Apparent Distress, WD/WN, Chronically ill Respiratory: Chest Non Tender, Lungs Clear, Normal Breath Sounds, No Accessory Muscle Use, No Respiratory Distress Cardiovascular: Regular Rate, Rhythm, No Edema, No Gallop, No JVD, No Murmur, Normal Peripheral Pulses Neurologic/Psychiatric: Alert, Oriented x3, No Motor/Sensory Deficits, Normal Mood/Affect Results/Procedures Lab Laboratory Tests 05/02/20 05:10 Patient resulted labs reviewed. Assessment/Plan Assessment and Plan Assess & Plan/Chief Complaint Assessment: Recurrent PNA s/p bronch DM HTN Plan: MOnitor closely Abx BAL Cx 05/02/20: Monitor closely Abx Diagnosis/Problems Diagnosis/Problems (1) Pneumonia Status: Acute (2) Hypoxia Status: Acute (3) IDDM (insulin dependent diabetes mellitus) Status: Chronic JONATAN DALY DO May 02, 2020 11:14
[2020-05-02] MEDS: ENOXAPARIN 40 MG/0.4 ML (LOVENOX) SYR SC SCH (20:28)
[2020-05-02] MEDS: ALPRAZolam 0.25 MG (XANAX) TAB PO PRN (20:28)
[2020-05-03] MEDS ORDERED: WATER (STERILE) FOR INJECTION 0 ML ONE (03:46)
[2020-05-03] MEDS ORDERED: MEROPENEM 500 MG VIAL (MERREM) IV ONE ×4 (03:46→21:10)
[2020-05-03] MEDS: MEROPENEM 500 MG/SWFI 10 ML IV PUSH IV SCH ×6 (03:58→18:43)
[2020-05-03 04:14] VITALS: BP 128/82
[2020-05-03 05:31] LABS: BASOPHILS % (AUTO) 0 % (0-10); EOSINOPHILS % (AUTO) 0 % (0-10); HEMATOCRIT 38 % (35-52); HEMOGLOBIN 12.1 g/dL (11.5-16.0); LYMPHOCYTES # (AUTO) 1.5 10^3/uL (1.0-4.0); LYMPHOCYTES % (AUTO) 8 % (12-44); MEAN CORPUSCULAR HEMOGLOBIN 28 pg (25-34); MEAN CORPUSCULAR HGB CONC 32 g/dL (32-36); MEAN CORPUSCULAR VOLUME 88 fL (80-99); MEAN PLATELET VOLUME 10.7 fL (9.0-12.2); MONOCYTES # (AUTO) 0.5 10^3/uL (0.0-1.0); MONOCYTES % (AUTO) 3 % (0-12); NEUTROPHILS # (AUTO) 15.8 10^3/uL (1.8-7.8); NEUTROPHILS % (AUTO) 87 % (42-75); PLATELET COUNT 356 10^3/uL (130-400)
[2020-05-03 05:57] LABS: ALANINE AMINOTRANSFERASE 25 U/L (0-55); ALBUMIN 3.1 GM/DL (3.2-4.5); ALKALINE PHOSPHATASE 74 U/L (40-136); BILIRUBIN,TOTAL 0.2 MG/DL (0.1-1.0); BUN/CREATININE RATIO 27; CALCIUM 8.7 MG/DL (8.5-10.1); CARBON DIOXIDE 22 MMOL/L (21-32); CHLORIDE 107 MMOL/L (98-107); GFR ESTIMATED > 60; GLUCOSE 207 MG/DL (70-105); POTASSIUM 4.5 MMOL/L (3.6-5.0); SODIUM 139 MMOL/L (135-145); TOTAL PROTEIN 5.6 GM/DL (6.4-8.2)
[2020-05-03] MEDS: inSUlin ASPART (NovoLOG) 1 UNIT/0.01 ML (CHARGE PER UNIT) SC SCH ×4 (06:07→21:04)
[2020-05-03 06:18] LABS: LYMPHOCYTES % (MANUAL) 11 %; MONOCYTES % (MANUAL) 2 %; NEUTROPHILS % (MANUAL) 87 %; STOMATOCYTES SLIGHT
[2020-05-03] MEDS: FLUTICASONE/SALMETEROL 113-14 (AIRDUO RespiCLICK) IH SCH ×2 (06:36→19:35)
[2020-05-03] MEDS: RT-ALBUTEROL SULF 2.5 MG/3 ML PRE-MIX VIAL INH SCH ×3 (06:36→19:35)
[2020-05-03 08:00] VITALS: BP 119/57
[2020-05-03] MEDS ORDERED: WATER (STERILE) FOR INJECTION 10 ML ONE ×3 (08:43→21:10)
[2020-05-03] MEDS: lisINopril 5 MG (PRINIVIL) TABLET PO SCH (08:54)
[2020-05-03] MEDS: CYANOCOBALAMIN 1,000 MCG (VITAMIN B-12) TABLET PO SCH (08:54)
[2020-05-03] MEDS: SENNA W/DOCUSATE (SENOKOT S) TABLET PO SCH ×2 (08:54→21:04)
[2020-05-03] MEDS: methylPREDNISolone 40 MG/ML (Solu-MEDROL) VIAL IV SCH (08:55)
[2020-05-03] MEDS: inSUlin ASPART (NovoLOG) 1 UNIT/0.01 ML (CHARGE PER UNIT) SQ SCH ×3 (08:55→18:42)
[2020-05-03] MEDS: ANIDULAFUNGIN INJECTION 100 MG in NS (IVPB) 100 ML IV SCH (08:56)
[2020-05-03 12:49] LABS: PARAINFLU 1 PCR Not Detected (Not Detected); PARAINFLU 2 PCR Not Detected (Not Detected); RSV PCR TEST Not Detected (Not Detected)
[2020-05-03] MEDS ORDERED: inSUlin ASPART (NovoLOG) 1 UNIT/0.01 ML (CHARGE PER UNIT) SC NR (13:00)
--- NOTE | 2020-05-03 14:16 | Physical Therapy Evaluation ---
PT Evaluation-General Medical Diagnosis Admission Date Apr 28, 2020 at 20:15 Medical Diagnosis: bilateral pneumonia/hypoxia Onset Date: Apr 28, 2020 Therapy Diagnosis Therapy Diagnosis: debility Precautions Precautions/Isolations: Standard Precautions Referral Physician: Adan Reason for Referral: Evaluation/Treatment Medical History Pertinent Medical History: DM, HTN, Smoking Current History ER secondary to increase SOA (recent hospital stay with readmit) Reviewed History: Yes Social History Home: Single Level Current Living Status: Spouse Prior Prior Level of Function SCALE: Activities may be completed with or without assistive devices. 9-Yfygtoamsx-wupyvxb completes the activity by him/herself with no assistance from a helper. 5-Set-up or Clean-up Assistance-helper sets up or cleans up; patient completes activity. Radom assists only prior to or following the activity. 4-Supervision or Touching Assistance-helper provides verbal cues and/or touching/steadying and/or contact guard assistance as patient completes activity. Assistance may be provided throughout the activity or intermittently. 3-Partial/Moderate Assistance-helper does LESS THAN HALF the effort. Radom lifts, holds or supports trunk or limbs, but provides less than half the effort. 2-Substantial/Maximal Assistance-helper does MORE THAN HALF the effort. Radom lifts or holds trunk or limbs and provides more than half the effort. 5-Rldtrwoqv-qqsezz does ALL the effort. Patient does none of the effort to complete the activity. Or, the assistance of 2 or more helpers is required for the patient to complete the activity. If activity was not attempted, code reason: 7-Patient Refused. 9-Not Applicable-not attempted and the patient did not perform the activity before the current illness, exacerbation or injury. 10-Not Attempted due to Environmental Limitations-(lack of equipment, weather restraints, etc.). 88-Not Attempted due to Medical Conditions or Safety Concerns. Bed Mobility: 6 Transfers (B,C,W/C): 6 Gait: 6 Stairs: 6 Indoor Mobility (Ambulation): Independent Stairs: Independent Prior Devices Use: None PT Evaluation-Current Subjective Patient agrees to PT. Objective Patient Orientation: Normal For Age ROM/Strength ROM Lower Extremities bilateral LE WFL Strength Lower Extremities 5/5 grossly bilateral LE Integumentary/Posture Bowel Incontinence: No Bladder Incontinence: No Neuromuscular (Tone, Coordination, Reflexes) WFL Sensory Vision: Wears Glasses Hearing: Functional Transfers Roll Left to Right (QC): 6 Lying to Sitting/Side of Bed(Q: 6 Sit to Stand (QC): 6 Chair/Rph-ul-Wtgku Xfer(QC): 6 Gait Does the Patient Walk?: Yes Mode of Locomotion: Walk Anticipated Mode of Locomotion: Walk Walk 10 feet (QC): 6 Walk 50 ft with 2 Turns(QC): 6 Walk 150 ft (QC): 6 Gait Assistive Device: None Comments/Gait Description slow, steady, normal gait sequence Balance Sitting Static: Normal Sitting Dynamic: Normal Standing Static: Normal Standing Dynamic: Normal Picking up an Object (QC): 6 Assessment/Needs 65 y.o. female, is currently at independent [facility] with all gross motor skills. Patient displays mild SOA with SAO2 95% RA with activity. No skilled PT indicated. Rehab Potential: Fair PT Plan Treatment/Plan Treatment Plan: Discontinue PT, goals met Treatment Duration: May 03, 2020 Frequency: 1 time per week Estimated Hrs Per Day: .5 hour per day Patient and/or Family Agrees t: Yes Discharge Recommendations Therapy Discharge Recommendati: Home & Family Time/GCodes Time In: 1330 Time Out: 1351 Total Billed Treatment Time: 21 Total Billed Treatment 1 visit EVLowC 21 min ANDRES SIMMONS PT May 03, 2020 14:16
--- NOTE | 2020-05-03 14:56 | Occ Therapy Progress Note ---
Therapy Progress Note OT order received. OT screen performed. Pt. independent with PT. Per PT, pt. able to ambulate independently in room, get in closet, get out her own mask and shoes, and don everything appropriately. No LOB or reported weakness. No OT warranted at this time. Thank you for this referral. Will be happy to assess pt. if her needs change. [id number] PAYAL HOLLIS OT May 03, 2020 14:56
--- NOTE | 2020-05-03 15:01 | Progress Note ---
Subjective Subjective/Events-last exam Patient states that she feels more short of breath this AM. She has not been up and walking around this AM. Tolerating PO diet. BM last night. Review of Systems General: Fatigue Pulmonary: Dyspnea; No Cough Cardiovascular: No: Chest Pain, Palpitations, Edema Gastrointestinal: No: Nausea, Vomiting, Abdominal Pain, Diarrhea, Constipation Neurological: Weakness Objective Exam Last Set of Vital Signs Vital Signs Date Time Temp Pulse Resp B/P (MAP) Pulse Ox O2 Delivery O2 Flow Rate FiO2 05/03/20 14:04 94 Room Air 05/03/20 08:00 35.9 75 18 119/57 (77) 04/30/20 12:00 2.00 04/29/20 14:01 28 Capillary Refill : Less Than 3 Seconds I&O Intake and Output 05/03/20 00:00 Intake Total 2820 ml Output Total 3500 ml Balance -680 ml Intake Oral 2810 ml IV Total 10 ml Output Urine Total 3500 ml General: Alert, Oriented X3, Cooperative, No Acute Distress HEENT: Mucous Memb Moist/[place] Lungs: Clear to Auscultation, Normal Air Movement, Other (Normal work of breathing) Heart: Regular Rate, No Murmurs Abdomen: Normal Bowel Sounds, Soft, No Tenderness, No Masses Extremities: No Edema, No Tenderness/Swelling Neuro: Normal Speech, Sensation Intact, Cranial Nerves 3-12 NL Results/Procedures Lab Laboratory Tests 05/02/20 15:29: Glucometer 266H 05/02/20 20:04: Glucometer 306H 05/03/20 05:20: White Blood Count 18.0H, Red Blood Count 4.31, Hemoglobin 12.1, Hematocrit 38, Mean Corpuscular Volume 88, Mean Corpuscular Hemoglobin 28, Mean Corpuscular Hemoglobin Concent 32, Red Cell Distribution Width 13.7, Platelet Count 356, Mean Platelet Volume 10.7, Immature Granulocyte % (Auto) 1, Neutrophils (%) (Auto) 87H, Lymphocytes (%) (Auto) 8L, Monocytes (%) (Auto) 3, Eosinophils (%) (Auto) 0, Basophils (%) (Auto) 0, Neutrophils # (Auto) 15.8H, Lymphocytes # (Auto) 1.5, Monocytes # (Auto) 0.5, Eosinophils # (Auto) 0.0, Basophils # (Auto) 0.0, Immature Granulocyte # (Auto) 0.2H, Neutrophils % (Manual) 87, Lymphocytes % (Manual) 11, Monocytes % (Manual) 2, Stomatocytes SLIGHT, Sodium Level 139, Potassium Level 4.5, Chloride Level 107, Carbon Dioxide Level 22, Anion Gap 10, Blood Urea Nitrogen 24H, Creatinine 0.90, Estimat Glomerular Filtration Rate > 60, BUN/Creatinine Ratio 27, Glucose Level 207H, Calcium Level 8.7, Corrected Calcium 9.4, Total Bilirubin 0.2, Aspartate Amino Transf (AST/SGOT) 10, Alanine Aminotransferase (ALT/SGPT) 25, Alkaline Phosphatase 74, Total Protein 5.6L, Albumin 3.1L 05/03/20 10:59: Glucometer 135H 05/03/20 14:19: Glucometer 169H Microbiology 04/30/20 Mycobacterial Culture - Preliminary, Resulted 04/28/20 Urine Culture - Final, Complete NO GROWTH 04/28/20 Blood Culture - Preliminary, Resulted No growth Assessment/Plan Assessment/Plan (1) Pneumonia Status: Acute Assessment & Plan: 05/03: Patient to complete antibiotics today, Bronch culture NGTD, Patient on RA Qualifiers: Qualified Codes: J18.9 - Pneumonia, unspecified organism (2) Hypoxia Status: Resolved (3) IDDM (insulin dependent diabetes mellitus) Status: Chronic Assessment & Plan: 05/03: Continue home insulin with SSI, A1c pending (4) Physical deconditioning Status: Acute Assessment & Plan: 05/03: Discussed deconditioning as the likely cause of her dsypnea, ordered PT today (5) BMI 37.0-37.9, adult Status: Chronic (6) DVT prophylaxis Status: Acute Assessment & Plan: - KOFI Lyon MD May 03, 2020 15:01
[2020-05-03 15:48] VITALS: BP 108/54
[2020-05-03] MEDS: ENOXAPARIN 40 MG/0.4 ML (LOVENOX) SYR SC SCH (21:20)
[2020-05-03] MEDS: ALPRAZolam 0.25 MG (XANAX) TAB PO PRN (21:21)
[2020-05-03 23:46] VITALS: BP 109/57
[2020-05-04 05:40] LABS: BASOPHILS # (AUTO) 0.1 10^3/uL (0.0-0.1); BASOPHILS % (AUTO) 0 % (0-10); EOSINOPHILS # (AUTO) 0.1 10^3/uL (0.0-0.3); EOSINOPHILS % (AUTO) 0 % (0-10); HEMATOCRIT 44 % (35-52); HEMOGLOBIN 13.8 g/dL (11.5-16.0); LYMPHOCYTES % (AUTO) 33 % (12-44); MEAN CORPUSCULAR HEMOGLOBIN 28 pg (25-34); MEAN CORPUSCULAR HGB CONC 32 g/dL (32-36); MEAN CORPUSCULAR VOLUME 89 fL (80-99); MEAN PLATELET VOLUME 10.6 fL (9.0-12.2); MONOCYTES # (AUTO) 1.1 10^3/uL (0.0-1.0); MONOCYTES % (AUTO) 5 % (0-12); NEUTROPHILS # (AUTO) 12.5 10^3/uL (1.8-7.8); NEUTROPHILS % (AUTO) 59 % (42-75); PLATELET COUNT 389 10^3/uL (130-400); WHITE BLOOD COUNT 21.3 10^3/uL (4.3-11.0)
[2020-05-04 06:20] LABS: ALBUMIN 3.3 GM/DL (3.2-4.5); BILIRUBIN,TOTAL 0.3 MG/DL (0.1-1.0); CALCIUM 8.7 MG/DL (8.5-10.1); CREATININE SERUM 0.98 MG/DL (0.60-1.30); POTASSIUM 4.3 MMOL/L (3.6-5.0); TOTAL PROTEIN 6.2 GM/DL (6.4-8.2)
[2020-05-04] MEDS: inSUlin ASPART (NovoLOG) 1 UNIT/0.01 ML (CHARGE PER UNIT) SC SCH ×4 (06:21→20:26)
[2020-05-04 08:00] VITALS: BP 123/59
[2020-05-04] MEDS: RT-ALBUTEROL SULF 2.5 MG/3 ML PRE-MIX VIAL INH SCH ×3 (08:32→19:00)
[2020-05-04] MEDS: FLUTICASONE/SALMETEROL 113-14 (AIRDUO RespiCLICK) IH SCH ×2 (08:33→19:00)
[2020-05-04] MEDS: lisINopril 5 MG (PRINIVIL) TABLET PO SCH (08:54)
[2020-05-04] MEDS: predniSONE 20 MG TAB PO SCH (08:54)
[2020-05-04] MEDS: CYANOCOBALAMIN 1,000 MCG (VITAMIN B-12) TABLET PO SCH (08:56)
[2020-05-04] MEDS: ANIDULAFUNGIN INJECTION 100 MG in NS (IVPB) 100 ML IV SCH (08:56)
[2020-05-04] MEDS: SENNA W/DOCUSATE (SENOKOT S) TABLET PO SCH ×2 (09:12→20:13)
[2020-05-04] MEDS: inSUlin ASPART (NovoLOG) 1 UNIT/0.01 ML (CHARGE PER UNIT) SQ SCH ×3 (10:42→17:10)
[2020-05-04 12:00] VITALS: BP 99/52
[2020-05-04 15:35] VITALS: BP 90/52
--- NOTE | 2020-05-04 17:15 | Progress Note ---
Subjective Subjective/Events-last exam Patient states that she is feeling better this AM. She is scared to go home because last time she had to come back. Tolerating ambulation and PO diet. Review of Systems Pulmonary: Dyspnea, Cough Cardiovascular: No: Chest Pain, Palpitations Gastrointestinal: No: Nausea, Vomiting, Abdominal Pain, Diarrhea, Constipation Genitourinary: No Dysuria, No Frequency Neurological: No: Weakness, Incoordination Objective Exam Last Set of Vital Signs Vital Signs Date Time Temp Pulse Resp B/P (MAP) Pulse Ox O2 Delivery O2 Flow Rate FiO2 05/04/20 15:35 36.0 90 18 90/52 (65) 94 Room Air 04/30/20 12:00 2.00 04/29/20 14:01 28 Capillary Refill : Less Than 3 Seconds I&O Intake and Output 05/04/20 00:00 Intake Total 3430 ml Output Total 3300 ml Balance 130 ml Intake Oral 3150 ml IV Total 280 ml Output Urine Total 3300 ml General: Alert, Oriented X3, Cooperative, No Acute Distress HEENT: Mucous Memb Moist/[place] Lungs: Clear to Auscultation, Normal Air Movement Heart: Regular Rate, No Murmurs Abdomen: Normal Bowel Sounds, Soft, No Tenderness, No Masses Extremities: Other (trace edema present bilaterally) Neuro: Normal Speech, Sensation Intact, Cranial Nerves 3-12 NL Results/Procedures Lab Laboratory Tests 05/03/20 20:14: Glucometer 147H 05/04/20 05:10: White Blood Count 21.3H, Red Blood Count 4.93, Hemoglobin 13.8, Hematocrit 44, Mean Corpuscular Volume 89, Mean Corpuscular Hemoglobin 28, Mean Corpuscular Hemoglobin Concent 32, Red Cell Distribution Width 14.1, Platelet Count 389, Mean Platelet Volume 10.6, Immature Granulocyte % (Auto) 2, Neutrophils (%) (Auto) 59, Lymphocytes (%) (Auto) 33, Monocytes (%) (Auto) 5, Eosinophils (%) (Auto) 0, Basophils (%) (Auto) 0, Neutrophils # (Auto) 12.5H, Lymphocytes # (Auto) 7.0H, Monocytes # (Auto) 1.1H, Eosinophils # (Auto) 0.1, Basophils # (Auto) 0.1, Immature Granulocyte # (Auto) 0.5H, Sodium Level 142, Potassium Level 4.3, Chloride Level 107, Carbon Dioxide Level 22, Anion Gap 13, Blood Urea Nitrogen 32H, Creatinine 0.98, Estimat Glomerular Filtration Rate 57, BUN/Creatinine Ratio 33, Glucose Level 81, Calcium Level 8.7, Corrected Calcium 9.3, Total Bilirubin 0.3, Aspartate Amino Transf (AST/SGOT) 19, Alanine Aminotransferase (ALT/SGPT) 27, Alkaline Phosphatase 75, Total Protein 6.2L, Albumin 3.3 05/04/20 11:38: Glucometer 164H 05/04/20 15:44: Glucometer 161H Microbiology 04/30/20 Mycobacterial Culture - Preliminary, Resulted 04/28/20 Urine Culture - Final, Complete NO GROWTH 04/28/20 Blood Culture - Final, Complete No growth Assessment/Plan Assessment/Plan (1) Pneumonia Status: Acute Assessment & Plan: 05/03: Patient to complete antibiotics today, Bronch culture NGTD, Patient on RA 05/04: NGTD on bronch culture, patient currently off antibiotics and still getting steroids, will do ambulatory oxygen in AM, plan to d/c tomorrow Qualifiers: Qualified Codes: J18.9 - Pneumonia, unspecified organism (2) Hypoxia Status: Resolved (3) IDDM (insulin dependent diabetes mellitus) Status: Chronic Assessment & Plan: 05/03: Continue home insulin with SSI, A1c pending 05/04: A1c 8.7 (4) Physical deconditioning Status: Acute Assessment & Plan: 05/03: Discussed deconditioning as the likely cause of her dsypnea, ordered PT today 05/04: Continue to focus on activity to gain strength back, encouraged patient to continue IS at least QID (5) BMI 37.0-37.9, adult Status: Chronic (6) DVT prophylaxis Status: Acute Assessment & Plan: - KOFI Lyon MD May 04, 2020 17:15
[2020-05-04] MEDS: ENOXAPARIN 40 MG/0.4 ML (LOVENOX) SYR SC SCH (20:25)
[2020-05-05] VITALS: BP 109/59
[2020-05-05 05:30] LABS: BASOPHILS # (AUTO) 0.1 10^3/uL (0.0-0.1); BASOPHILS % (AUTO) 0 % (0-10); EOSINOPHILS # (AUTO) 0.2 10^3/uL (0.0-0.3); EOSINOPHILS % (AUTO) 1 % (0-10); HEMATOCRIT 39 % (35-52); HEMOGLOBIN 12.1 g/dL (11.5-16.0); LYMPHOCYTES # (AUTO) 6.3 10^3/uL (1.0-4.0); LYMPHOCYTES % (AUTO) 32 % (12-44); MEAN CORPUSCULAR HEMOGLOBIN 28 pg (25-34); MEAN CORPUSCULAR HGB CONC 31 g/dL (32-36); MEAN CORPUSCULAR VOLUME 89 fL (80-99); MEAN PLATELET VOLUME 10.3 fL (9.0-12.2); MONOCYTES # (AUTO) 1.1 10^3/uL (0.0-1.0); MONOCYTES % (AUTO) 6 % (0-12); NEUTROPHILS # (AUTO) 11.8 10^3/uL (1.8-7.8); NEUTROPHILS % (AUTO) 59 % (42-75); PLATELET COUNT 335 10^3/uL (130-400); WHITE BLOOD COUNT 19.8 10^3/uL (4.3-11.0)
[2020-05-05 06:23] LABS: ALANINE AMINOTRANSFERASE 25 U/L (0-55); ALKALINE PHOSPHATASE 63 U/L (40-136); BILIRUBIN,TOTAL 0.3 MG/DL (0.1-1.0); BUN/CREATININE RATIO 41; CALCIUM 8.3 MG/DL (8.5-10.1); CARBON DIOXIDE 23 MMOL/L (21-32); CHLORIDE 108 MMOL/L (98-107); CREATININE SERUM 0.81 MG/DL (0.60-1.30); GFR ESTIMATED > 60; POTASSIUM 4.1 MMOL/L (3.6-5.0); SODIUM 141 MMOL/L (135-145); TOTAL PROTEIN 5.4 GM/DL (6.4-8.2)
[2020-05-05] MEDS: predniSONE 20 MG TAB PO SCH (06:25)
[2020-05-05 06:34] LABS: GLUCOSE 68 MG/DL (70-105)
[2020-05-05] MEDS: inSUlin ASPART (NovoLOG) 1 UNIT/0.01 ML (CHARGE PER UNIT) SC SCH ×3 (06:37→16:02)
[2020-05-05] MEDS: RT-ALBUTEROL SULF 2.5 MG/3 ML PRE-MIX VIAL INH SCH ×2 (07:09→15:01)
[2020-05-05] MEDS: FLUTICASONE/SALMETEROL 113-14 (AIRDUO RespiCLICK) IH SCH (07:09)
[2020-05-05 08:13] VITALS: BP_SYST 109; BP_SYST 131; BP_DIAS 55; BP_DIAS 81
[2020-05-05] MEDS: ANIDULAFUNGIN INJECTION 100 MG in NS (IVPB) 100 ML IV SCH (09:53)
[2020-05-05] MEDS: inSUlin ASPART (NovoLOG) 1 UNIT/0.01 ML (CHARGE PER UNIT) SQ SCH ×2 (09:53→11:45)
[2020-05-05] MEDS: SENNA W/DOCUSATE (SENOKOT S) TABLET PO SCH (09:54)
[2020-05-05] MEDS: CYANOCOBALAMIN 1,000 MCG (VITAMIN B-12) TABLET PO SCH (09:56)
--- NOTE | 2020-05-05 11:24 | Discharge Summary ---
Diagnosis/Chief Complaint Date of Admission Apr 28, 2020 at 20:15 Date of Discharge 05/05/2020 Discharge Diagnosis Problems/Diagnosis: (1) Pneumonia Assessment & Plan: 05/03: Patient to complete antibiotics today, Bronch culture NGTD, Patient on RA 05/04: NGTD on bronch culture, patient currently off antibiotics and still getting steroids, will do ambulatory oxygen in AM, plan to d/c tomorrow Qualifiers: Qualified Codes: J18.9 - Pneumonia, unspecified organism Status: Acute (2) Hypoxia Status: Resolved Resolution Date/Time: 05/03/20 @ 15:00 (3) IDDM (insulin dependent diabetes mellitus) Assessment & Plan: 05/03: Continue home insulin with SSI, A1c pending 05/04: A1c 8.7 Status: Chronic (4) Physical deconditioning Assessment & Plan: 05/03: Discussed deconditioning as the likely cause of her dsypnea, ordered PT today 05/04: Continue to focus on activity to gain strength back, encouraged patient to continue IS at least QID Status: Acute (5) BMI 37.0-37.9, adult Status: Chronic (6) DVT prophylaxis Assessment & Plan: - Lovenox Status: Acute Discharge Summary-Simple/Stand Consultations Discharge Physical Examination Allergies: Coded Allergies: No Known Drug Allergies (Unverified , 04/16/20) Vitals & I&Os Vital Sign - Last 12Hours Date Time Temp Pulse Resp B/P (MAP) Pulse Ox O2 Delivery O2 Flow Rate FiO2 05/05/20 08:13 36.2 74 18 109/55 (73) 96 Room Air 04/30/20 12:00 2.00 04/29/20 14:01 28 Intake and Output 05/05/20 00:00 Intake Total 3600 ml Output Total 1750 ml Balance 1850 ml Hospital Course See final discharge diagnosis. Discharge Instructions to patient/family Please see electronic discharge instructions given to patient. Discharge Medications Reviewed and agree with Discharge Medication list on patient's Discharge Instruction sheet KOFI FLANAGAN MD May 05, 2020 11:24
[2020-05-05] MEDS ORDERED: PRD20T PO (11:29)
[2020-05-05] MEDS ORDERED: IPRA3AMP31 IH (11:29)
--- NOTE | 2020-05-05 11:38 | Discharge Summary ---
Discharge [facility] Reconcile Patient Problems Problems Reviewed?: Yes Discharge Medications New, Converted or Re-Newed RX: Transmitted to Pharmacy New Medications: Ipratropium/Albuterol Sulfate (Iprat-Albut 0.5-3(2.5) mg/3 ml) 3 Ml Ampul.neb 3 ML IH Q6H PRN for SHORTNESS OF BREATH, #100 EACH Prednisone (Prednisone) 20 Mg Tab 20 MG PO DAILY, #11 TAB Take 2 tab daily x 3 days then 1 tab daily x 3 days then 1/2 tab daily x 4 days then stop Continued Medications: Albuterol Sulfate (Proair Hfa) 1 Puff Puff 2 PUFF IH Q4H PRN for SHORTNESS OF BREATH, PUFF Budesonide/Formoterol Fumarate (Symbicort 80-4.5 Mcg Inhaler) 10.2 Gm Hfa.aer.ad 1 PUFF IH BID, INHALER Cyanocobalamin (Vitamin B-12) (Vitamin B-12) 500 Mcg Lozenge 500 MCG PO DAILY, LOZENGE Dulaglutide (Trulicity) 1.5 Mg/0.5 Ml Pen.injctr 1.5 MG SQ SUNDAY, VIAL Gabapentin (Neurontin) 300 Mg Capsule 300 MG PO HS PRN for LEG CRAMPS, CAP Insulin Aspart (Novolog) 100 Unit/1 Ml Susp 25 UNIT SQ AC, EACH Insulin Determir (Levemir) 1,000 Units/10 Ml Soln 30-35 UNITS SQ BID, EA Metformin HCl (Metformin HCl ER) 500 Mg Tab.er.24 500 MG PO BID, TAB LAST FILLED 02-24-2020 #90/45 DAY SUPPLY Multivitamin/Iron/Folic Acid (Centrum Adults Tablet) 1 Each Tablet 1 EACH PO DAILY, TAB Discontinued Medications: Ibuprofen (Ibuprofen) 200 Mg Tablet 600 MG PO Q6H PRN for PAIN-MILD (1-4), TAB TAKES 3 (200MG) TABLETS Lisinopril (Lisinopril) 2.5 Mg Tablet 2.5 MG PO DAILY, TAB Patient Instructions Goal/Follow Up Appt: You have a followup appt with Bette Jones on 05/07 @ 10 AM Activity & Diet Discharge Diet: Cardiac Diet Activity as Tolerated: Yes KOFI FLANAGAN MD May 05, 2020 11:36
[2020-05-05 15:46] VITALS: BP 121/57
[2020-05-05] MEDS ORDERED: ALPRAZolam 0.25 MG (XANAX) TAB ONE (15:55)
== END 2020-05-05 17:01 | disposition home or self-care (01) | DRG 871 ==
LOC: EDUNIT# 17:04 → ER 17:06 → ICU 20:15 → 4TH 04-30 14:00
PROVIDERS: ADMIT Internal Medicine; ATTEND Family Medicine
PROC: 0B9M8ZX Drainage of Bilateral Lungs, Via Natural or Artificial Opening Endoscopic, Diagnostic (ICD-10-PCS; principal; 2020-04-30)
DX: A41.9 Sepsis, unspecified organism (principal); J18.9 Pneumonia, unspecified organism; J96.01 Acute respiratory failure with hypoxia; E87.2 Acidosis; J44.0 Chronic obstructive pulmonary disease with (acute) lower respiratory infection; E87.5 Hyperkalemia; E11.9 Type 2 diabetes mellitus without complications; Z20.822 Contact with and (suspected) exposure to COVID-19; D72.829 Elevated white blood cell count, unspecified; T38.0X5A Adverse effect of glucocorticoids and synthetic analogues, initial encounter; F17.210 Nicotine dependence, cigarettes, uncomplicated; E78.00 Pure hypercholesterolemia, unspecified; I10 Essential (primary) hypertension; G89.29 Other chronic pain; E66.9 Obesity, unspecified; F41.9 Anxiety disorder, unspecified; Z68.37 Body mass index [BMI] 37.0-37.9, adult; Z79.4 Long term (current) use of insulin; Z90.49 Acquired absence of other specified parts of digestive tract
CPT/HCPCS: 36415; 36569; 71045; 71275; 76937; 80053; 81000; 82805; 82962; 83036; 83605; 84145; 85007; 85025; 85027; 85610; 85730; 87015; 87040; 87070; 87081; 87088; 87101; 87116; 87205; 87206; 87631; 87635; 87804; 94640; 94664; 94760; 94761; 96361; 96365; 96366; 96367

== ENCOUNTER → 2020-07-28 | Outpatient (CLI) | payer OTHER ==
[~2020-07-28] MED LIST changes: +BUDE10.22 IH; +CATHETER FLUSH 10 ML SYR IV PRN; +HOLD METFORMIN - RECEIVED CONTRAST 20 ML VIAL IV SCH; +IOHEXOL 350 MG/ML 100 ML (OMNIPAQUE 350) VIAL IV ONE; +IPRA3AMP31 IH; +NS 100 ML (IVPB) BAG IV ONE
[2020-07-28 15:09] LABS: ALBUMIN 3.9 GM/DL (3.2-4.5); BILIRUBIN,TOTAL 0.4 MG/DL (0.1-1.0); CALCIUM 9.4 MG/DL (8.5-10.1); CREATININE SERUM 1.1 MG/DL (0.60-1.30); POTASSIUM 4.4 MMOL/L (3.6-5.0); TOTAL PROTEIN 7.6 GM/DL (6.4-8.2)
--- NOTE | 2020-07-28 16:12 | Diagnostic Imaging Report ---
EXAMINATION: CT chest with intravenous contrast. TECHNIQUE: Multiple contiguous axial images were obtained through the chest after the uneventful administration of intravenous contrast. All CT scans use one or more of the following dose optimizing techniques: automated exposure control, MA and/or KvP adjustment based on patient size and exam type or iterative reconstruction. HISTORY: Pneumonia. COMPARISON: None available. FINDINGS: Thyroid: The thyroid is normal. Mediastinum: Heart size is normal without significant pericardial effusion. Calcifications of the aorta and coronary vessels. Thoracic aorta is normal in caliber. No suspicious lymphadenopathy. Lungs and airways: The right upper azygos lobe is present. There are patchy groundglass opacities throughout both lungs, left greater than right. Consolidation is greatest in the left upper lobe. No significant pleural effusion or pneumothorax. The airways are normal. Upper abdomen: The subphrenic structures are normal. Musculoskeletal: Degenerative changes of the spine without suspicious osseous lesion or compression fracture. IMPRESSION: 1. Patchy groundglass consolidation throughout both lungs compatible with a multifocal pneumonia. Dictated by: Dictated on workstation # [id number]
== END ==
LOC: RAD 15:45
PROVIDERS: ATTEND Nurse Practitioner Family
DX: J18.9 Pneumonia, unspecified organism (principal)
CPT/HCPCS: 36415; 71260; 80053

== ENCOUNTER → 2020-09-13 | Outpatient (CLI) | payer OTHER ==
[~2020-09-13] MED LIST changes: -CATHETER FLUSH 10 ML SYR IV PRN; -HOLD METFORMIN - RECEIVED CONTRAST 20 ML VIAL IV SCH; -IOHEXOL 350 MG/ML 100 ML (OMNIPAQUE 350) VIAL IV ONE; -NS 100 ML (IVPB) BAG IV ONE; +RT-ALBUTEROL SULF 2.5 MG/3 ML PRE-MIX VIAL INH ONE
== END ==
LOC: RT 16:00
PROVIDERS: ATTEND Nurse Practitioner Family
DX: J45.909 Unspecified asthma, uncomplicated (principal)
CPT/HCPCS: 94060; 94726; 94729

== ENCOUNTER 2020-09-24 11:13 | Outpatient (CLI) | payer OTHER ==
[~2020-09-24 11:13] MED LIST changes: -RT-ALBUTEROL SULF 2.5 MG/3 ML PRE-MIX VIAL INH ONE
== END 2020-09-24 11:33 ==
LOC: SLEEP 11:13
PROVIDERS: ATTEND Nurse Practitioner Family
DX: G47.30 Sleep apnea, unspecified (principal); G47.50 Parasomnia, unspecified; G47.10 Hypersomnia, unspecified; J18.9 Pneumonia, unspecified organism; G25.81 Restless legs syndrome; E11.40 Type 2 diabetes mellitus with diabetic neuropathy, unspecified; R91.8 Other nonspecific abnormal finding of lung field; R51.9 Headache, unspecified
CPT/HCPCS: G0399

== ENCOUNTER 2020-09-28 09:45 | Emergency (ER) | payer OTHER ==
[~2020-09-28] VITALS: Ht 154.9 cm; Wt 89.0 kg
[2020-09-28 10:03] LABS: BASOPHILS # (AUTO) 0.1 10^3/uL (0.0-0.1); BASOPHILS % (AUTO) 1 % (0-10); EOSINOPHILS # (AUTO) 0.2 10^3/uL (0.0-0.3); EOSINOPHILS % (AUTO) 2 % (0-10); HEMATOCRIT 49 % (35-52); HEMOGLOBIN 15.1 g/dL (11.5-16.0); LYMPHOCYTES # (AUTO) 3.4 10^3/uL (1.0-4.0); LYMPHOCYTES % (AUTO) 29 % (12-44); MEAN CORPUSCULAR HEMOGLOBIN 27 pg (25-34); MEAN CORPUSCULAR HGB CONC 31 g/dL (32-36); MEAN CORPUSCULAR VOLUME 88 fL (80-99); MEAN PLATELET VOLUME 10.7 fL (9.0-12.2); MONOCYTES # (AUTO) 0.8 10^3/uL (0.0-1.0); MONOCYTES % (AUTO) 7 % (0-12); NEUTROPHILS # (AUTO) 7.2 10^3/uL (1.8-7.8); NEUTROPHILS % (AUTO) 62 % (42-75); PLATELET COUNT 463 10^3/uL (130-400); WHITE BLOOD COUNT 11.7 10^3/uL (4.3-11.0)
[2020-09-28 10:15] LABS: POTASSIUM 4.2 MMOL/L (3.6-5.0)
[2020-09-28 10:16] LABS: CALCIUM 9.4 MG/DL (8.5-10.1)
[2020-09-28 10:18] LABS: TOTAL PROTEIN 7.7 GM/DL (6.4-8.2)
[2020-09-28 10:19] LABS: BILIRUBIN,TOTAL 0.5 MG/DL (0.1-1.0)
[2020-09-28 10:21] LABS: CREATININE SERUM 1.05 MG/DL (0.60-1.30)
[2020-09-28 10:24] LABS: MAGNESIUM 2.3 MG/DL (1.6-2.4)
[2020-09-28 10:25] LABS: INR 0.9 (0.8-1.4); PROTHROMBIN TIME PATIENT 12.5 SEC (12.2-14.7)
--- NOTE | 2020-09-28 11:10 | Diagnostic Imaging Report ---
INDICATION: Worsening shortness of breath and increased hypoxia, history of COVID. COMPARISON: Exam compared to 04/30/2020. FINDINGS: There are progressive bilateral infiltrates, greater left than right. Lung volumes are symmetric. No effusion or pneumothorax. IMPRESSION: Worsened bilateral infiltrates, asymmetric, greater left. Dictated by: Dictated on workstation # [id number]
[2020-09-28] MEDS ORDERED: NS 100 ML (IVPB) BAG IV ONE (11:30)
[2020-09-28] MEDS ORDERED: HOLD METFORMIN - RECEIVED CONTRAST 20 ML VIAL IV SCH (11:30)
[2020-09-28] MEDS ORDERED: IOHEXOL 350 MG/ML 100 ML (OMNIPAQUE 350) VIAL IV ONE (11:30)
--- NOTE | 2020-09-28 12:15 | Diagnostic Imaging Report ---
PROCEDURE: CT angiography Chest TECHNIQUE: After intravenous administration of contrast, thin section axial CT angiography of the chest was performed. 3D MIP reconstructions were made. All CT scans use one or more of the following dose optimizing techniques: automated exposure control, MA and/or KvP adjustment based on a patient size and exam type, or iterative reconstruction. INDICATION: Shortness of air and COPD. COMPARISON: CT chest from 08/07/2020, 04/28/2020 and 04/16/2020 FINDINGS: Vasculature: No pulmonary emboli. No CT evidence of pulmonary hypertension or right ventricular strain. Thoracic aorta is normal in caliber. No aortic dissection or pseudoaneurysm. Heart and mediastinum: Visualized thyroid is normal. No supraclavicular, axillary, or intra-thoracic lymphadenopathy. The heart is normal in size without pericardial effusion. Pleura: No pleural effusion or pneumothorax. Lungs and airway: No endoluminal lesion in the trachea or central bronchi. There remain groundglass opacities with lobules sparing within the left upper lobe. Worsening of randomly distributed groundglass opacities and micronodules in the bilateral lower lobes. Upper abdomen: Allowing for the phase of contrast, no acute abnormality in the upper abdomen is seen. Musculoskeletal: No concerning osseous lesion. IMPRESSION: 1. No pulmonary emboli or acute aortic syndrome. 2. Continued progression of bilateral ground glass opacities and randomly distributed micronodules. 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 Atypical inflammatory process are possibility, but should remain diagnosis of exclusion. Therefore, biopsy of the left upper lobe confluent areas of groundglass attenuation are recommended. Dictated by: Dictated on workstation # [id number]
--- NOTE | 2020-09-28 13:08 | ED Respiratory ---
General Chief Complaint: Respiratory Problems Stated Complaint: SOA Nursing Triage Note: PT TO ED FOR INCREASED WORK OF BREATHING AND SOB, WITH DECREASED O2 LEVELS. PT REPORTS SYMPTOMS HAVE PERSISTED FOR A COUPLE DAYS. PT HAS HISTORY OF COPD. Source: patient Exam Limitations: no limitations History of Present Illness Date Seen by Provider: Sep 28, 2020 Time Seen by Provider: 09:54 Initial Comments This is 65-year-old woman with COPD presents to the emergency room at the direction of the pulmonary clinic with complaints of increased shortness of breath at rest. Oxygen saturations are stable on her usual 2 L/min. She was sent to the emergency room by Dr. Mcknight for further work-up with a specific request to obtain CT angiogram of the chest. She denies chest pain, increased cough, fever, or known Covid exposure. She has not had a Covid vaccination. Allergies and Home Medications Allergies Coded Allergies: No Known Drug Allergies (Unverified , 04/16/20) Home Medications Albuterol Sulfate 1 Puff Puff, 2 PUFF IH Q4H PRN for SHORTNESS OF BREATH, (Reported) Budesonide/Formoterol Fumarate 10.2 Gm Hfa.aer.ad, 1 PUFF IH BID, (Reported) Cyanocobalamin (Vitamin B-12) 500 Mcg Lozenge, 500 MCG PO DAILY, (Reported) Dulaglutide 1.5 Mg/0.5 Ml Pen.injctr, 1.5 MG SQ SUNDAY, (Reported) Gabapentin 300 Mg Capsule, 300 MG PO HS PRN for LEG CRAMPS, (Reported) Insulin Aspart 100 Unit/1 Ml Susp, 25 UNIT SQ AC, (Reported) Insulin Determir 1,000 Units/10 Ml Soln, 30-35 UNITS SQ BID, (Reported) Ipratropium/Albuterol Sulfate 3 Ml Ampul.neb, 3 ML IH Q6H PRN for SHORTNESS OF BREATH Prescribed by: KOFI FLANAGAN on 05/05/20 1129 Metformin HCl 500 Mg Tab.er.24, 500 MG PO BID, (Reported) LAST FILLED 02-24-2020 #90/45 DAY SUPPLY Multivitamin/Iron/Folic Acid 1 Each Tablet, 1 EACH PO DAILY, (Reported) Prednisone 20 Mg Tab, 20 MG PO DAILY Take 2 tab daily x 3 days then 1 tab daily x 3 days then 1/2 tab daily x 4 days then stop Prescribed by: KOFI FLANAGAN on 05/05/20 1129 Patient Home Medication List Home Medication List Reviewed: Yes Review of Systems Review of Systems Constitutional: no symptoms reported EENTM: no symptoms reported Respiratory: see HPI Cardiovascular: no symptoms reported Gastrointestinal: no symptoms reported Genitourinary: no symptoms reported Musculoskeletal: no symptoms reported Skin: no symptoms reported Psychiatric/Neurological: No Symptoms Reported Hematologic/Lymphatic: No Symptoms Reported Immunological/Allergic: no symptoms reported Past Sgeemeh-Cmezsb-Qqzznc Hx Patient Social History Tobacco Use?: No Substance use?: No Alcohol Use?: No Pt feels they are or have been: No Seasonal Allergies Seasonal Allergies: Yes Past Medical History Surgeries: Yes Adenoidectomy, Appendectomy, Hysterectomy, Tonsillectomy Respiratory: Yes (Obstructive lung disease, dependent on oxygen supplementation) Cardiac: Yes High Cholesterol, Hypertension Neurological: No APRON MAN History: Hysterectomy, Menopausal Genitourinary: No Gastrointestinal: No Musculoskeletal: Yes Chronic Back Pain, Fractures Endocrine: Yes (OBESITY) Diabetes, Insulin dep HEENT: No Cancer: No Psychosocial: Yes Anxiety Integumentary: No Blood Disorders: No Physical Exam Vital Signs - First Documented 09/28/20 09:50 Temp 36.7 Pulse 91 Resp 34 B/P (MAP) 158/83 (108) Pulse Ox 92 O2 Delivery Nasal Cannula O2 Flow Rate 2.00 Capillary Refill : Less Than 3 Seconds Height: '" Weight: lbs. oz. 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, no motor/sensory deficits, al ert, normal mood/affect, oriented x 3 Skin: normal color, warm/dry Progress/Results/Core Measures Suspected Sepsis SIRS Temperature: Pulse: 91 Respiratory Rate: 34 Laboratory Tests 09/28/20 09:55: White Blood Count 11.7H Blood Pressure 158 /83 Mean: 108 Laboratory Tests 09/28/20 09:55: Creatinine 1.05, INR Comment 0.9, Platelet Count 463H, Total Bilirubin 0.5 Results/Orders Lab Results Laboratory Tests Test 09/28/20 09:55 09/28/20 09:59 Range/Units White Blood Count 11.7 H 4.3-11.0 10^3/uL Red Blood Count 5.54 H 3.80-5.11 10^6/uL Hemoglobin 15.1 11.5-16.0 g/dL Hematocrit 49 35-52 % Mean Corpuscular Volume 88 80-99 fL Mean Corpuscular Hemoglobin 27 25-34 pg Mean Corpuscular Hemoglobin Concent 31 L 32-36 g/dL Red Cell Distribution Width 13.2 10.0-14.5 % Platelet Count 463 H 130-400 10^3/uL Mean Platelet Volume 10.7 9.0-12.2 fL Immature Granulocyte % (Auto) 1 % Neutrophils (%) (Auto) 62 42-75 % Lymphocytes (%) (Auto) 29 12-44 % Monocytes (%) (Auto) 7 0-12 % Eosinophils (%) (Auto) 2 0-10 % Basophils (%) (Auto) 1 0-10 % Neutrophils # (Auto) 7.2 1.8-7.8 10^3/uL Lymphocytes # (Auto) 3.4 1.0-4.0 10^3/uL Monocytes # (Auto) 0.8 0.0-1.0 10^3/uL Eosinophils # (Auto) 0.2 0.0-0.3 10^3/uL Basophils # (Auto) 0.1 0.0-0.1 10^3/uL Immature Granulocyte # (Auto) 0.1 0.0-0.1 10^3/uL Prothrombin Time 12.5 12.2-14.7 SEC INR Comment 0.9 0.8-1.4 Activated Partial Thromboplast Time 27 24-35 SEC D-Dimer 3.04 H 0.00-0.49 UG/ML Sodium Level 144 135-145 MMOL/L Potassium Level 4.2 3.6-5.0 MMOL/L Chloride Level 108 H 98-107 MMOL/L Carbon Dioxide Level 24 21-32 MMOL/L Anion Gap 12 5-14 MMOL/L Blood Urea Nitrogen 10 7-18 MG/DL Creatinine 1.05 0.60-1.30 MG/DL Estimat Glomerular Filtration Rate 53 BUN/Creatinine Ratio 10 Glucose Level 169 H 70-105 MG/DL Calcium Level 9.4 8.5-10.1 MG/DL Corrected Calcium 9.4 8.5-10.1 MG/DL Magnesium Level 2.3 1.6-2.4 MG/DL Total Bilirubin 0.5 0.1-1.0 MG/DL Aspartate Amino Transf (AST/SGOT) 14 5-34 U/L Alanine Aminotransferase (ALT/SGPT) 18 0-55 U/L Alkaline Phosphatase 78 40-136 U/L Myoglobin 34.2 10.0-92.0 NG/ML Troponin I < 0.028 <0.028 NG/ML B-Type Natriuretic Peptide 57.5 <100.0 PG/ML Total Protein 7.7 6.4-8.2 GM/DL Albumin 4.0 3.2-4.5 GM/DL Influenza Type A (RT-PCR) Not Detected Not Detecte Influenza Type B (RT-PCR) Not Detected Not Detecte SARS-CoV-2 RNA (RT-PCR) Not Detected Not Detecte My Orders Orders - MARCOS DOWNS MD Cbc With Automated Diff (09/28/20 09:54) Magnesium (09/28/20:54) Chest 1 View, Ap/Pa Only (09/28/20:54) Ekg Tracing (09/28/20:54) Comprehensive Metabolic Panel (09/28/20 09:54) Myoglobin Serum (09/28/20 09:54) Protime With Inr (09/28/20:54) Partial Thromboplastin Time (09/28/20:54) O2 (09/28/20:54) Monitor-Rhythm Ecg Trace Only (09/28/20:54) Ed Iv/Invasive Line Start (09/28/20:54) BNP (09/28/20:54) Fibrin Degradation Products (09/28/20:54) Troponin I (09/28/20:54) Covid 19 Inhouse Test (09/28/20 09:54) Influenza A And B By Pcr (09/28/20 09:54) Ct Angio Chest W (09/28/20 11:20) Iohexol Injection (Omnipaque 350 Mg/Ml 1 (09/28/20 11:30) Received Contrast (Hold Metformin- Contr (09/28/20 11:30) Ns (Ivpb) (Sodium Chloride 0.9% Ivpb Bag (09/28/20 11:30) Medications Given in ED Current Medications Medications Dose Ordered Sig/Kaz Route Start Time Stop Time Status Last Admin Dose Admin Iohexol 100 ml ONCE ONCE IV 09/28/20 11:30 09/28/20 11:31 DC 09/28/20 11:48 83 ML Sodium Chloride 100 ml ONCE ONCE IV 09/28/20 11:30 09/28/20 11:31 DC 09/28/20 11:48 80 ML Vital Signs/I&O 09/28/20 09/28/20 09/28/20 09:50 09:50 13:16 Temp 36.7 Pulse 91 77 Resp 34 20 B/P (MAP) 158/83 (108) 127/80 Pulse Ox 92 92 94 O2 Delivery Nasal Cannula Nasal Cannula Room Air O2 Flow Rate 2.00 2.00 Capillary Refill : Less Than 3 Seconds Blood Pressure Mean: 108 Point of Care Testing Finger Stick Blood Glucose: 99 Blood Glucose Action Taken: Reported to Brooke Progress Note : Progress Note Patient's tachypnea calm down after she rested. Work-up revealed no evidence of ACS, pulmonary embolism, or heart failure. There were progressive markings on her chest x-ray and CT when compared with prior. Findings were communicated to Dr. Mcknight. She recommended discharge home with close outpatient follow-up. She intends to review the CT images herself and provide further recommendations directly to the patient. Oxygen saturation remained stable during her ER stay. ECG Initial ECG Impression Date: Sep 28, 2020 Initial ECG Impression Time: 09:54 Initial ECG Rate: 78 Initial ECG Rhythm: Normal Sinus Comment Normal sinus rhythm with no ST elevation or depression. No abnormal intervals or axis deviation. Diagnostic Imaging Diagonstic Imaging: Xray Plain Films/CT/US/NM/MRI: chest Comments NAME: NAKITA MENARD [facility] REC#: [id number] PT STATUS: REG ER : 1955 PHYSICIAN: MARCOS DOWNS MD ADMIT DATE: 09/28/20/ER Signed Date of Exam:09/28/20 CHEST 1 VIEW, AP/PA ONLY INDICATION: Worsening shortness of breath and increased hypoxia, history of COVID. COMPARISON: Exam compared to 04/30/2020. FINDINGS: There are progressive bilateral infiltrates, greater left than right. Lung volumes are symmetric. No effusion or pneumothorax. IMPRESSION: Worsened bilateral infiltrates, asymmetric, greater left. Dictated by: Dictated on workstation # [id number] Dict: 09/28/20 1106 Trans: 09/28/20 1130 [place] [employer] [id number] Interpreted by: JORGE LUIS REYES Electronically signed by: JORGE LUIS REYES 09/28/20 1130 Reviewed: Reviewed by Me Diagonstic Imaging: CT Plain Films/CT/US/NM/MRI: chest Comments NAME: NAKITA MENARD [facility] REC#: [id number] PT STATUS: DEP ER : 1955 PHYSICIAN: MARCOS DOWNS MD ADMIT DATE: 09/28/20/ER Signed Date of Exam:09/28/20 CT ANGIO CHEST W PROCEDURE: CT angiography Chest TECHNIQUE: After intravenous administration of contrast, thin section axial CT angiography of the chest was performed. 3D MIP reconstructions were made. All CT scans use one or more of the following dose optimizing techniques: automated exposure control, MA and/or KvP adjustment based on a patient size and exam type, or iterative reconstruction. INDICATION: Shortness of air and COPD. COMPARISON: CT chest from 08/07/2020, 04/28/2020 and 04/16/2020 FINDINGS: Vasculature: No pulmonary emboli. No CT evidence of pulmonary hypertension or right ventricular strain. Thoracic aorta is normal in caliber. No aortic dissection or pseudoaneurysm. Heart and mediastinum: Visualized thyroid is normal. No supraclavicular, axillary, or intra-thoracic lymphadenopathy. The heart is normal in size without pericardial effusion. Pleura: No pleural effusion or pneumothorax. Lungs and airway: No endoluminal lesion in the trachea or central bronchi. There remain groundglass opacities with lobules sparing within the left upper lobe. Worsening of randomly distributed groundglass opacities and micronodules in the bilateral lower lobes. Upper abdomen: Allowing for the phase of contrast, no acute abnormality in the upper abdomen is seen. Musculoskeletal: No concerning osseous lesion. IMPRESSION: 1. No pulmonary emboli or acute aortic syndrome. 2. Continued progression of bilateral ground glass opacities and randomly distributed micronodules. 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 Atypical inflammatory process are possibility, but should remain diagnosis of exclusion. Therefore, biopsy of the left upper lobe confluent areas of groundglass attenuation are recommended. Dictated by: Dictated on workstation # [id number] Dict: 09/28/20 1151 Trans: 09/28/20 1217 [place] [id number] Interpreted by: ANH NAJERA MD Electronically signed by: ANH NAJERA MD 09/28/207 Reviewed: Reviewed by Me Departure Impression Primary Impression: Dyspnea Qualified Codes: R06.00 - Dyspnea, unspecified Additional Impression: Abnormal CT scan, chest Disposition: 01 HOME, SELF-CARE Condition: Improved Departure-Patient Inst. Decision time for Depature: 13:07 Referrals: NO,LOCAL PHYSICIAN (PCP/Family) Primary Care Physician Patient Instructions: Shortness of Breath (Dyspnea) Add. Discharge Instructions: No pulmonary embolism or heart abnormalities were detected on your work-up in the ER today. The health services rn will review your CT and contact you regarding follow-up. Please contact the pulmonology clinic if you have not heard further instructions by the end of the week. Return to the ER if you have worsening symptoms or develop new symptoms such as fever. Call with questions or concerns. All discharge instructions reviewed with patient and/or family. Voiced understanding. MARCOS DOWNS MD Sep 28, 2020 13:08
[2020-09-28 13:16] VITALS: BP 127/80
== END 2020-09-28 13:22 | disposition home or self-care (01) ==
LOC: EDUNIT# 09:45 → ER 09:47
DX: R06.00 Dyspnea, unspecified (principal); R91.8 Other nonspecific abnormal finding of lung field; E66.9 Obesity, unspecified; I10 Essential (primary) hypertension; E11.9 Type 2 diabetes mellitus without complications; Z20.822 Contact with and (suspected) exposure to COVID-19; Z68.37 Body mass index [BMI] 37.0-37.9, adult; Z79.4 Long term (current) use of insulin; Z79.899 Other long term (current) drug therapy; Z79.52 Long term (current) use of systemic steroids
CPT/HCPCS: 36415; 71045; 71275; 80053; 83735; 83874; 83880; 84484; 85025; 85379; 85610; 85730; 87636; 93005; 93041

== ENCOUNTER → 2020-10-05 | Outpatient (CLI) | payer OTHER ==
--- NOTE | 2020-10-05 14:58 | Diagnostic Imaging Report ---
INDICATION: Lung mass left upper lobe as well as increasing shortness of breath and recurrent pneumonia. Serum blood glucose level at the time of injection is 158 mg/dL. Patient was administered 12.1 mCi F-18 FDG intravenously in the right antecubital location and PET imaging was performed from the top of the skull to mid thighs. Noncontrast CT was also performed for attenuation correction and anatomic correlation. No prior PET CT studies are available for comparison. Comparison is made with recent CT chest study from 09/28/2020. There is symmetric activity throughout the brain. Soft tissues of the neck are unremarkable. There is increase hypermetabolism involving the left upper lobe at areas of previously noted confluent groundglass opacities. SUV max is 10.3. There is some uptake in the lingula as well but to a lesser degree with SUV max of approximately 5.4. There is some uptake in the left lower lobe as well with SUV max approximately 5. No definite mediastinal or hilar hypermetabolism is identified. There is physiologic activity throughout the gastrointestinal and genitourinary tracts of the abdomen and pelvis. No suspicious hypermetabolism below the diaphragm is identified. IMPRESSION: Abnormal uptake of FDG in the left upper and left lower lobe as well as the lingula, greatest in the left upper lobe. Activity in the left upper lobe is concerning for malignancy. No definite mediastinal or hilar hypermetabolism is identified. Dictated by: Dictated on workstation # [id number]
== END ==
LOC: RAD 10:30
PROVIDERS: ATTEND Nurse Practitioner Family
DX: R91.8 Other nonspecific abnormal finding of lung field (principal); J18.9 Pneumonia, unspecified organism
CPT/HCPCS: 78815; A9552

== ENCOUNTER 2020-12-07 05:31 | Outpatient (CLI) | payer OTHER ==
[~2020-12-07] VITALS: Ht 162.6 cm; Wt 88.5 kg
[~2020-12-07 05:31] MED LIST changes: -LISI2.5T PO; +LISI2.5T13 PO
[2020-12-07] MEDS ORDERED: INSU100I29 SQ (12:17)
[2020-12-07] MEDS ORDERED: INSU100I14 SQ (12:17)
[2020-12-07] MEDS ORDERED: ONDA8TAB13 PO (12:17)
[2020-12-07] MEDS ORDERED: FLUT1DIS27 IH (12:17)
[2020-12-07] MEDS ORDERED: TIOT4MIS2 IH (12:17)
[2020-12-07] MEDS ORDERED: PANT40TA52 PO (12:17)
[2020-12-07] MEDS ORDERED: METF-399 PO (12:17)
== END 2020-12-07 12:24 | disposition home or self-care (01) ==
LOC: PREOP 05:31
PROVIDERS: ATTEND Surgery
DX: Z01.818 Encounter for other preprocedural examination (principal)

== ENCOUNTER 2020-12-09 10:32 | Day surgery (SDC) | payer OTHER ==
[~2020-12-09] VITALS: Ht 162.6 cm; Wt 88.5 kg
[2020-12-09] VITALS (7 sets, daily range): BP systolic 108–135; BP diastolic 56–76
[~2020-12-09 10:32] MED LIST changes: +FLUT1DIS27 IH; +INSU100I14 SQ; +INSU100I29 SQ; +ONDA8TAB13 PO; +PANT40TA52 PO; +TIOT4MIS2 IH
--- OUTSIDE RECORDS SUMMARY | 2020-12-09 10:35 | XMS REPORT | Clinical Summary ---
Author Author [facility] Address Unknown Phone Unavailable Care Team Providers Care Ultrasonographer Name Role Phone PCP Unavailable Source Comments Some departments are not documenting in the electronic medical record. If you d o not see the information that you expected, contact Release of Information in [facility] [employer] Information Management department at [phone] for further assistan ce in locating additional records.[facility] Allergies Not on File Medications Not on file Active Problems Not on file Encounters Care Team Description Date Type Specialty Dot Angel Financial Clearance (CC SELF PAY PATIENT - Financial Clearance) 10/06/2020 Telephone Win Silva MD Referral 10/05/2020 Telephone Pulmonology from Last 3 Months Social History Date Tobacco Use Types Packs/Day Years Used Never Assessed Sex Assigned at Date Recorded Not on file Last Filed Vital Signs Not on file Plan of Treatment Health Maintenance Due Date Last Done Comments HIV SCREENING 1972 DTAP/TDAP VACCINES (1 - 1975 Tdap) HEPATITIS C SCREENING 1975 PHYSICAL (COMPREHENSIVE) 1975 EXAM CERVICAL CANCER SCREENING 1978 BREAST CANCER SCREENING 1997 COLORECTAL CANCER 2007 SCREENING SHINGLES RECOMBINANT 2007 VACCINE (1 of 2) INFLUENZA VACCINE 09/19/2020 Results Not on filefrom Last 3 Months 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
--- NOTE | 2020-12-09 10:53 | Progress Note-Pre Operative ---
Pre-Operative Progress Note H&P Reviewed The H&P was reviewed, patient examined and no changes noted. Date Seen by Provider: Dec 09, 2020 Time Seen by Provider: 10:52 Date H&P Reviewed: Dec 09, 2020 Time H&P Reviewed: 10:52 Pre-Operative Diagnosis: lung cancer MADDI FREEMAN DO Dec 09, 2020 10:53
[2020-12-09] MEDS ORDERED: 0.9% SODIUM CHLORIDE PF INJ 20 ML VIAL ONE (10:54)
[2020-12-09] MEDS ORDERED: HEParin (CENTRAL IV FLUSH) 500 UNIT/5 ML SYR ONE (10:55)
[2020-12-09] MEDS ORDERED: LIDOCAINE/EPI 1%-1:100,000 (XYLOCAINE) 20ML ONE (10:55)
[2020-12-09] MEDS ORDERED: LIDOCAINE PF 2% 5 ML (XYLOCAINE) VIAL ONE (11:08)
[2020-12-09] MEDS ORDERED: proPOfol 200 MG/20 ML (DIPRIVAN) VIAL IV ONE ×2 (11:08→12:02)
[2020-12-09] MEDS ORDERED: KETAMINE SYRINGE 50 MG/5 ML SYRINGE ONE (11:08)
[2020-12-09] MEDS ORDERED: ceFAZolin 2 GM IV Premixed 50 ML IV ONE (11:15)
[2020-12-09] MEDS ORDERED: MIDAZOLAM 2 MG/2 ML (VERSED) VIAL IVP ONE (11:15)
[2020-12-09] MEDS ORDERED: LACTATED RINGERS 1,000 ML IV PRN (11:15)
--- NOTE | 2020-12-09 12:04 | Progress Note-Post Operative ---
Post-Operative Progess Note Surgeon (s)/Developer [employer] (s) Surgeon MADDI FREEMAN DO Developer [employer]: NA Pre-Operative Diagnosis lung cancer Post-Operative Diagnosis SAME Procedure & Operative Findings Date of Procedure 12/09/20 Procedure Performed/Findings PROCEDURE: Right internal jugular port placement using ultrasound guidance. COMPLICATIONS: None. INDICATIONS: The patient is a 65 year old female with lung cancer. Patient understands the risks and benefits of port placement and wished to proceed with the procedure. Consent was signed on the chart. PROCEDURE: The patient was taken to the operating suite, was prepped and draped in the sterile fashion. A surgical pause was performed. Ultrasound was used to locate the internal jugular vein. Once located anesthetic was infiltrated above it. Using micro-access kit, the right internal vein was accessed. Dark nonpulsatile blood was withdrawn. The wire was inserted. Fluoroscopy assured proper placement. The needle was removed. The micro-access dilator was advanced over the wire and the wire was removed. The regular wire was inserted and fluoroscopy assured proper placement. The wire was then secured. Local anesthetic was used to anesthetize from the neck for tunneling down to the right chest and for pocket creation. A 15 blade scalpel was used to make an incision over the right chest. Cautery was used to dissect down to the pectoral fascia. A pocket was created with blunt dissection. The dilator sheath was then advanced over the wire under fluoroscopy and the dilator and wire were removed. The Groshong catheter was inserted through the sheath and the sheath was then removed. The Groshong wire was removed. The catheter was then tunneled to the right chest pocket. Fluoroscopy was used to cut to length and this was then attached to the port which was then placed within the pocket. The port was then accessed without difficulty. It was then flushed with saline and then heparin. The subcutaneous tissues were then reapproximated using 3-0 Vicryl. The areas were then washed and dried. Skin Affix was placed over incision. The insertion point of the neck Skin Affix was placed over the incision. The patient tolerated the procedure well without complication and was taken to recovery room in stable condition. Chest x-ray is pending. Anesthesia Type mac c local Estimated Blood Loss Estimated blood loss (mL): minimal Specimens/Packing Specimens Removed MADDI Fernandez DO Dec 09, 2020 12:04
--- NOTE | 2020-12-09 12:05 | Discharge Inst-Simple/Standard ---
Discharge Inst-Standard Patient Instructions/Follow Up Plan of Care/Instructions/FU: 2 weeks Renata Activity as Tolerated: No Discharge Diet: Regular Diet Other Inst to Patient Follow up Appt: Make appointment for 2 week. Instructions: No lifting greater than 10 pounds. No strenuous activity. May shower in 24 hours, no tub bath or soaking. Use incentive spirometer at home as directed. No Smoking Skin/Wound Care: You have special glue over your incision that will fall off on it's own. Ice pack on 15 min off 30 min and repeat for first 48 hours. This will reduce swelling and discomfort. Symptoms to Report: Appetite Changes, Extremity Discoloration, Numbness/Tingling, Swelling Increased, Bleeding Excessive, Eyesight Changes, Pain Increased, Urine Color Change, Constipation(Persistent), Fever over 101 degree F, Pain/Pressure in chest, Urinating Difficulty, Cough Up/Vomit Blood, Heart Beat Irreg/Pounding, Pain/Pressure in jaw, Vaginal Bleeding Increase, Cramps in feet or legs, Lightheadedness, Pain/Pressure in shoulder, Diarrhea(Persistent), Memory Changes Suddenly, Questions/Concerns, Weight gain consecutive days, Dizziness/Fainting, Nausea/Vomiting, Shortness of Breath, Weight gain over 2 pounds If questions or concerns contact your physician Or seek help at emergency department. MADDI FREEMAN DO Dec 09, 2020 12:05
--- NOTE | 2020-12-09 12:24 | Diagnostic Imaging Report ---
INDICATION: Port placement. TIME OF EXAM: 12:10 PM Correlation is made with prior chest from 09/28/2020. Right chest wall port has the tip in good position overlying SVC right atrial junction. No pneumothorax is identified. There is extensive infiltrate throughout the left lung. There is some patchy airspace infiltrate in the right upper and right lower lung field as well. There appears to be some pleural fluid on the left. Heart is enlarged. IMPRESSION: 1. Right-sided port placement, as described. 2. Extensive bilateral infiltrates, particularly on the left. Dictated by: Dictated on workstation # [id number]
--- NOTE | 2020-12-09 12:53 | Anesthesia-General Post-Op ---
MAC Patient Condition Mental Status/LOC: Same as Preop Cardiovascular: Satisfactory Nausea/Vomiting: Absent Respiratory: Satisfactory Pain: Controlled Complications: Absent Post Op Complications Complications None Follow Up Care/Instructions Patient Instructions None needed. Anesthesiology Discharge Order Discharge Order Patient is doing well, no complaints, stable vital signs, no apparent adverse anesthesia problems. STEPHANIE NUR DO Dec 09, 2020 12:53
--- NOTE | 2020-12-09 13:43 | Diagnostic Imaging Report ---
INDICATION: Port-A-Cath placement in surgery IMPRESSION: 15 seconds of fluoroscopy was used. A single image was obtained which shows the Port-A-Cath tip to be in the right atrium. Dictated by: Dictated on workstation # [id number]
== END 2020-12-09 13:45 | disposition home or self-care (01) ==
LOC: SDC 10:32
PROVIDERS: ATTEND Surgery
DX: C34.12 Malignant neoplasm of upper lobe, left bronchus or lung (principal); J44.9 Chronic obstructive pulmonary disease, unspecified; E11.42 Type 2 diabetes mellitus with diabetic polyneuropathy; Z79.4 Long term (current) use of insulin; I10 Essential (primary) hypertension; E78.5 Hyperlipidemia, unspecified; F41.9 Anxiety disorder, unspecified; K21.9 Gastro-esophageal reflux disease without esophagitis; Z87.891 Personal history of nicotine dependence; Z79.84 Long term (current) use of oral hypoglycemic drugs; Z79.899 Other long term (current) drug therapy
CPT/HCPCS: 36561; 71045; 76000; 82947; 87081; C1788

== ENCOUNTER 2020-12-13 12:35 | Outpatient (RCR) | payer MEDICAID, OTHER ==
[2020-11-24 09:58] LABS: BASOPHILS # (AUTO) 0.1 10^3/uL (0.0-0.1); BASOPHILS % (AUTO) 1 % (0-10); EOSINOPHILS # (AUTO) 0.3 10^3/uL (0.0-0.3); EOSINOPHILS % (AUTO) 3 % (0-10); HEMATOCRIT 47 % (35-52); HEMOGLOBIN 14.7 g/dL (11.5-16.0); LYMPHOCYTES # (AUTO) 3.6 10^3/uL (1.0-4.0); LYMPHOCYTES % (AUTO) 31 % (12-44); MEAN CORPUSCULAR HEMOGLOBIN 28 pg (25-34); MEAN CORPUSCULAR HGB CONC 32 g/dL (32-36); MEAN CORPUSCULAR VOLUME 89 fL (80-99); MEAN PLATELET VOLUME 10.8 fL (9.0-12.2); MONOCYTES # (AUTO) 0.8 10^3/uL (0.0-1.0); MONOCYTES % (AUTO) 6 % (0-12); NEUTROPHILS # (AUTO) 6.9 10^3/uL (1.8-7.8); NEUTROPHILS % (AUTO) 59 % (42-75); PLATELET COUNT 406 10^3/uL (130-400); WHITE BLOOD COUNT 11.7 10^3/uL (4.3-11.0)
[2020-11-24 10:32] LABS: ALBUMIN 3.6 GM/DL (3.2-4.5); BILIRUBIN,TOTAL 0.5 MG/DL (0.1-1.0); CALCIUM 9.2 MG/DL (8.5-10.1); CREATININE SERUM 0.96 MG/DL (0.60-1.30); POTASSIUM 4.1 MMOL/L (3.6-5.0); TOTAL PROTEIN 6.7 GM/DL (6.4-8.2)
[~2020-12-13] VITALS: Ht 162.6 cm; Wt 88.5 kg
[~2020-12-13 12:35] MED LIST changes: +CYANOCOBALAMIN INJ 1000 MCG/ML (CANCER CENTER) ONE; +NS IV 1000 ML (CANCER CTR) IV SCH; +PEMBROLIZUMAB 200 MG in NS (IVPB) CANCER CENTER 50 ML IV SCH; +PEMETREXED DISODIUM 1,000 MG in NS (IVPB) CANCER CENTER 100 ML IV SCH
[2020-12-13 13:04] LABS: BASOPHILS # (AUTO) 0.1 10^3/uL (0.0-0.1); BASOPHILS % (AUTO) 0 % (0-10); EOSINOPHILS % (AUTO) 0 % (0-10); HEMATOCRIT 44 % (35-52); HEMOGLOBIN 14.2 g/dL (11.5-16.0); LYMPHOCYTES # (AUTO) 1.4 10^3/uL (1.0-4.0); LYMPHOCYTES % (AUTO) 6 % (12-44); MEAN CORPUSCULAR HEMOGLOBIN 28 pg (25-34); MEAN CORPUSCULAR HGB CONC 32 g/dL (32-36); MEAN CORPUSCULAR VOLUME 87 fL (80-99); MEAN PLATELET VOLUME 10.8 fL (9.0-12.2); MONOCYTES # (AUTO) 0.4 10^3/uL (0.0-1.0); MONOCYTES % (AUTO) 2 % (0-12); NEUTROPHILS # (AUTO) 20.9 10^3/uL (1.8-7.8); NEUTROPHILS % (AUTO) 91 % (42-75); PLATELET COUNT 438 10^3/uL (130-400)
[2020-12-13] MEDS ORDERED: PEMETREXED DISODIUM 1,000 MG in NS (IVPB) CANCER CENTER 100 ML IV SCH (13:06)
[2020-12-13 13:23] LABS: ALBUMIN 3.7 GM/DL (3.2-4.5); BILIRUBIN,TOTAL 0.6 MG/DL (0.1-1.0); CALCIUM 9.7 MG/DL (8.5-10.1); CREATININE SERUM 1.02 MG/DL (0.60-1.30); MAGNESIUM 2.1 MG/DL (1.6-2.4); POTASSIUM 4.5 MMOL/L (3.6-5.0); TOTAL PROTEIN 7.1 GM/DL (6.4-8.2)
[2020-12-13] MEDS ORDERED: FOSAPREPITANT (CANCER CENTER) 150 MG in NS (IVPB) CANCER CENTER ONLY 150 ML IV SCH (13:30)
[2021-01-03] MEDS ORDERED: IPRA3AMP31 IH (11:19)
[2021-01-03] MEDS ORDERED: DEXA4TAB PO (11:19)
[2021-01-03] MEDS ORDERED: GABA300C PO (11:19)
[2021-01-03] MEDS ORDERED: CLON1TAB13 PO (11:19)
[2021-01-03] MEDS ORDERED: CHOL200074 PO (11:19)
[2021-01-03] MEDS ORDERED: ZINC50TA58 PO (11:19)
[2021-01-03] MEDS ORDERED: ASCO500T17 PO (11:19)
[2021-01-03] MEDS ORDERED: DULA3PEN SQ (11:26)
== END 2021-01-07 | disposition home or self-care (01) ==
LOC: ONC 12:35
PROVIDERS: ATTEND Internal Medicine Hematology & Oncology
DX: Z51.11 Encounter for antineoplastic chemotherapy (principal); C34.12 Malignant neoplasm of upper lobe, left bronchus or lung; E11.9 Type 2 diabetes mellitus without complications
CPT/HCPCS: 36591; 80053; 83735; 85025; 96367; 96372; 96375; 96411; 96413; 99204; 99213; 99214

== ENCOUNTER 2021-01-01 04:02 | Inpatient (IN) | payer MEDICAID ==
[~2021-01-01] VITALS: Ht 157 cm; Wt 89.8 kg
[~2021-01-01 04:02] MED LIST changes: -CYANOCOBALAMIN INJ 1000 MCG/ML (CANCER CENTER) ONE; -NS IV 1000 ML (CANCER CTR) IV SCH; -PEMBROLIZUMAB 200 MG in NS (IVPB) CANCER CENTER 50 ML IV SCH; -PEMETREXED DISODIUM 1,000 MG in NS (IVPB) CANCER CENTER 100 ML IV SCH
[2021-01-01] MEDS ORDERED: NS IV 1000 ML 1,000 ML IV SCH (04:30)
[2021-01-01] MEDS ORDERED: VANCOMYCIN INJECTION 1,000 MG in NS (IVPB) 250 ML IV ONE (04:30)
[2021-01-01] MEDS ORDERED: CEFEPIME INJECTION 1,000 MG in NS (IVPB) 50 ML IV ONE (04:30)
--- NOTE | 2021-01-01 04:33 | ED General ---
General Chief Complaint: Respiratory Problems Stated Complaint: FEVER,LUNG CA Source of Information: Patient, Family Exam Limitations: No Limitations History of Present Illness Date Seen by Provider: Jan 01, 2021 Time Seen by Provider: 04:18 Initial Comments Patient to the ER by private conveyance from home with chief complaint of mynor rtness of air and fever x1 day. She has a history of lung cancer known to Dr. Garcia and received her last dose of chemotherapy on the , nearly 3 weeks ago. She will dry nonproductive cough. She has not had vaccinations for Covid or influenza. She says her son had a fever yesterday and was tested negative for Covid 19. She is not having any nausea vomiting diarrhea constipation. She does use nebulizers and her last dose was yesterday. She had a dose of Tylenol yesterday. She does not feel wheezy but she does feel short of breath on her normal 4 L supplemental oxygen by nasal cannula. She wants to be a DNI. Allergies and Home Medications Allergies Coded Allergies: No Known Drug Allergies (Unverified , 04/16/20) Patient Home Medication List Home Medication List Reviewed: Yes Albuterol Sulfate (Proair Hfa) 1 Puff Puff, 2 PUFF IH Q4H PRN for SHORTNESS OF BREATH, (Reported) Entered as Reported by: KATIE CARLSON on 04/29/201609 Last Action: Continued Budesonide/Formoterol Fumarate (Symbicort 80-4.5 Mcg Inhaler) 10.2 Gm Hfa.aer.ad, 1 PUFF IH BID, (Reported) Entered as Reported by: KATIE CARLSON on 04/29/20 161 Last Action: Held Cyanocobalamin (Vitamin B-12) (Vitamin B-12) 500 Mcg Lozenge, 500 MCG PO DAILY, (Reported) Entered as Reported by: PAULETTE BUENROSTRO on 04/16/20 2310 Last Action: Held Dulaglutide (Trulicity) 1.5 Mg/0.5 Ml Pen.injctr, 1.5 MG SQ SUNDAY, (Reported) Entered as Reported by: WILLIAMS GUALLPA on 04/19/20 1017 Last Action: Held Fluticasone/Salmeterol (Advair 500-50 Diskus) 1 Each Blst.w.dev, 1 EACH IH BID, (Reported) Entered as Reported by: GEGE BOSE on 12/07/201216 Last Action: Held Insulin Aspart (Novolog Flexpen) 300 Units/3 Ml Solution, 25 UNITS SQ TIDAC, (Reported) Entered as Reported by: GEGE BOSE on 12/07/201216 Last Action: Held Insulin Detemir (Levemir Flextouch) 100 Unit/1 Ml Insuln.pen, 30 UNIT SQ BID, (Reported) Entered as Reported by: GEGE BOSE on 12/07/201216 Last Action: Held Ipratropium/Albuterol Sulfate (Iprat-Albut 0.5-3(2.5) mg/3 ml) 3 Ml Ampul.neb, 3 ML IH Q6H PRN for SHORTNESS OF BREATH Prescribed by: KOFI FLANAGAN on 05/05/201128 Last Action: Continued Metformin HCl (Metformin HCl) 1,000 Mg Tablet, 1,000 MG PO BID, (Reported) Entered as Reported by: GEGE BOSE on 12/07/201216 Last Action: Held Ondansetron (Ondansetron Odt) 8 Mg Tab.rapdis, 8 MG PO Q8H PRN for NAUSEA/VOMITING, (Reported) Entered as Reported by: GEGE BOSE on 12/07/201216 Last Action: Converted Pantoprazole Sodium (Pantoprazole Sodium) 40 Mg Tablet.dr, 40 MG PO DAILY, (Reported) Entered as Reported by: GEGE BOSE on 12/07/201216 Last Action: Continued Review of Systems Review of Systems Constitutional: chills, fever, malaise, weakness EENTM: No ear discharge, No ear pain, No blurred vision Respiratory: cough; No hemoptysis, No orthopnea, No phlegm; short of breath; No wheezing Cardiovascular: No chest pain, No edema, No palpitations Gastrointestinal: No abdominal pain, No constipation, No nausea, No vomiting Genitourinary: No discharge, No dysuria Musculoskeletal: No back pain, No joint pain Skin: No pruritus, No rash Psychiatric/Neurological: Denies Headache, Denies Numbness All Other Systems Reviewed Negative Unless Noted: Yes Past Lmimymq-Pxjkut-Jtyygs Hx Patient Social History Tobacco Use?: No Use of E-Cig and/or Vaping dev: No Seasonal Allergies Seasonal Allergies: Yes Past Medical History Surgeries: Yes Abdominal, Adenoidectomy, Appendectomy, Hysterectomy, Tonsillectomy Respiratory: Yes (Obstructive lung disease, 5L ALL THE TIME) COPD Currently Using CPAP: No Currently Using BIPAP: No Cardiac: Yes High Cholesterol, Hypertension 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 oz. kg; 33.47 BMI Method: General Appearance: Anxious, Chronically ill, Severe Distress Eyes: Bilateral Eye Normal Inspection, Bilateral Eye PERRL, Bilateral Eye EOMI HEENT: PERRL/EOMI, TMs Normal; No Pharynx Normal, No Moist Mucous Membranes (Dry oral mucosa) Neck: Full Range of Motion, Normal Inspection Respiratory: Lungs Clear, Normal Breath Sounds, Accessory Muscle Use, Decreased Breath Sounds, Respiratory Distress Cardiovascular: Regular Rate, Rhythm, No Edema, Normal Peripheral Pulses Gastrointestinal: Normal Bowel Sounds, Non Tender, Soft Extremity: Normal Capillary Refill, Normal Inspection, No Pedal Edema Neurologic/Psychiatric: Alert, Oriented x3, No Motor/Sensory Deficits Skin: normal color, warm/dry Focused Exam Lactate Level 01/01/21 05:50: Lactic Acid Level 1.04 01/01/21 08:20: Lactic Acid Level 1.25 Progress/Results/Core Measures Suspected Sepsis SIRS Temperature: Pulse: Respiratory Rate: Laboratory Tests 01/01/21 05:50: White Blood Count 5.8 Blood Pressure / Mean: 01/01/21 05:50: Lactic Acid Level 1.04 01/01/21 08:20: Lactic Acid Level 1.25 Laboratory Tests 01/01/21 05:50: Creatinine 1.36H, INR Comment 1.1, Platelet Count 497H, Total Bilirubin 0.4 Results/Orders Lab Results Laboratory Tests Test 01/01/21 04:27 01/01/21 04:30 01/01/21 05:50 01/01/21 06:05 Range/Units Blood Gas Puncture Site LEFT RADIAL Blood Gas Patient Temperature 102.5 Arterial Blood pH 7.39 7.37-7.43 Arterial Blood Partial Pressure CO2 34 L 35-45 MMHG Arterial Blood Partial Pressure O2 65 L 79-93 MMHG Arterial Blood HCO3 19 L 23-27 MMOL/L Arterial Blood Total CO2 20.2 L 21.0-31.0 MMOL/L Arterial Blood Oxygen Saturation 89 L 94-100 % Arterial Blood Base Excess -4.4 L -2.5-2.5 MMOL/L Audie Test YES-POS Blood Gas Ventilator Setting NO Blood Gas Inspired Oxygen 8L Influenza Type A (RT-PCR) Not Detected Not Detecte Influenza Type B (RT-PCR) Not Detected Not Detecte SARS-CoV-2 RNA (RT-PCR) Detected H Not Detecte White Blood Count 5.8 4.3-11.0 10^3/uL Red Blood Count 4.42 3.80-5.11 10^6/uL Hemoglobin 12.4 11.5-16.0 g/dL Hematocrit 38 35-52 % Mean Corpuscular Volume 86 80-99 fL Mean Corpuscular Hemoglobin 28 25-34 pg Mean Corpuscular Hemoglobin Concent 33 32-36 g/dL Red Cell Distribution Width 14.6 H 10.0-14.5 % Platelet Count 497 H 130-400 10^3/uL Mean Platelet Volume 9.7 9.0-12.2 fL Immature Granulocyte % (Auto) 1 % Neutrophils (%) (Auto) 66 42-75 % Lymphocytes (%) (Auto) 10 L 12-44 % Monocytes (%) (Auto) 22 H 0-12 % Eosinophils (%) (Auto) 0 0-10 % Basophils (%) (Auto) 0 0-10 % Neutrophils # (Auto) 3.8 1.8-7.8 10^3/uL Lymphocytes # (Auto) 0.6 L 1.0-4.0 10^3/uL Monocytes # (Auto) 1.3 H 0.0-1.0 10^3/uL Eosinophils # (Auto) 0.0 0.0-0.3 10^3/uL Basophils # (Auto) 0.0 0.0-0.1 10^3/uL Immature Granulocyte # (Auto) 0.1 0.0-0.1 10^3/uL Prothrombin Time 15.0 H 12.2-14.7 SEC INR Comment 1.1 0.8-1.4 Activated Partial Thromboplast Time 32 24-35 SEC D-Dimer 3.08 H 0.00-0.49 UG/ML Sodium Level 132 L 135-145 MMOL/L Potassium Level 4.4 3.6-5.0 MMOL/L Chloride Level 102 98-107 MMOL/L Carbon Dioxide Level 16 L 21-32 MMOL/L Anion Gap 14 5-14 MMOL/L Blood Urea Nitrogen 15 7-18 MG/DL Creatinine 1.36 H 0.60-1.30 MG/DL Estimat Glomerular Filtration Rate 39 BUN/Creatinine Ratio 11 Glucose Level 351 H 70-105 MG/DL Lactic Acid Level 1.04 0.50-2.00 MMOL/L Calcium Level 8.2 L 8.5-10.1 MG/DL Corrected Calcium 8.8 8.5-10.1 MG/DL Total Bilirubin 0.4 0.1-1.0 MG/DL Aspartate Amino Transf (AST/SGOT) 39 H 5-34 U/L Alanine Aminotransferase (ALT/SGPT) 25 0-55 U/L Alkaline Phosphatase 74 40-136 U/L Troponin I < 0.028 <0.028 NG/ML C-Reactive Protein High Sensitivity 2.86 H 0.00-0.50 MG/DL Total Protein 6.1 L 6.4-8.2 GM/DL Albumin 3.2 3.2-4.5 GM/DL Procalcitonin 0.30 H <0.10 NG/ML Urine Color YELLOW Urine Clarity CLEAR Urine pH 6.0 5-9 Urine Specific [place] 1.025 H 1.016-1.022 Urine Protein 1+ H NEGATIVE Urine Glucose (UA) NEGATIVE NEGATIVE Urine Ketones 1+ H NEGATIVE Urine Nitrite NEGATIVE NEGATIVE Urine Bilirubin NEGATIVE NEGATIVE Urine Urobilinogen 0.2 < = 1.0 MG/DL Urine Leukocyte Esterase TRACE H NEGATIVE Urine RBC (Auto) NEGATIVE NEGATIVE Urine RBC NONE /HPF Urine WBC 5-10 H /HPF Urine Crystals NONE /LPF Urine Bacteria FEW H /HPF Urine Casts NONE /LPF Urine Mucus LARGE H /LPF Urine Culture Indicated CULTURE PENDING Test 01/01/21 08:20 01/01/21 10:53 01/01/21 16:08 11/13/21 20:31 Range/Units Lactic Acid Level 1.25 0.50-2.00 MMOL/L Glucometer 309 H 200 H 202 H 70-110 MG/DL My Orders Orders - MAINE DENNISON Cbc With Automated Diff (01/01/21 04:17) Comprehensive Metabolic Panel (01/01/21 04:17) Blood Culture (01/01/21 04:17) Sputum Culture (01/01/21 04:17) Urinalysis (01/01/21 04:17) Urine Culture (01/01/21 04:17) Protime With Inr (01/01/21 04:17) Partial Thromboplastin Time (01/01/21 04:17) Chest 1 View, Ap/Pa Only (01/01/21 04:17) Ed Iv/Invasive Line Start (01/01/21 04:17) Ed Iv/Invasive Line Start (01/01/21 04:17) Vital Signs Adult Sepsis Patie Q15M (01/01/21 04:17) O2 (01/01/21 04:17) Remove Rings In Anticipation O (01/01/21 04:17) Lactic Acid Analyzer (01/01/21 04:17) Influenza A And B By Pcr (01/01/21 04:17) Ns Iv 1000 Ml (Sodium Chloride 0.9%) (01/01/21 04:30) Covid 19 Inhouse Test (01/01/21 04:17) Arterial Blood Gas (01/01/21 04:28) Cefepime Injection (Maxipime Injection) (01/01/21 04:30) Vancomycin Injection (Vancomycin Injecti (01/01/21 04:30) Vancomycin Injection (Vancomycin Injecti (01/01/21 05:30) Vapotherm - Admin Rt Rfs (01/01/21 04:31) Acetaminophen Tablet (Tylenol Tablet) (01/01/21 04:45) Continuous Ekg Monitoring (01/01/21 04:36) Ekg Tracing (01/01/21 04:36) Troponin I (01/01/21 04:36) Catheter(Urinary) Insert & Ass 03,15 (01/01/21 04:36) Fibrin Degradation Products (01/01/21 05:50) Hs C Reactive Protein (01/01/21 05:50) Procalcitonin (Pct) (01/01/21 05:50) Vital Signs/I&O 01/01/21 01/01/21 01/01/21 01/01/21 14:19 15:00 16:00 16:20 Temp 37.3 Pulse 96 96 Resp 15 29 B/P (MAP) 113/50 96/60 Pulse Ox 93 94 94 O2 Delivery Vapotherm Vapotherm Vapotherm O2 Flow Rate 40.00 40.00 40.00 65.00 65.00 FiO2 65 01/01/21 01/01/21 01/01/21 01/01/21 16:23 17:00 18:00 19:00 Pulse 89 95 92 Resp 26 19 B/P (MAP) 119/58 101/58 Pulse Ox 96 94 O2 Delivery Vapotherm Vapotherm Vapotherm O2 Flow Rate 40.00 40.00 40.00 65.00 65.00 FiO2 65 01/01/21 01/01/21 01/01/21 01/01/21 19:00 19:08 19:58 20:00 Temp 36.9 Pulse 96 Resp 20 B/P (MAP) 100/59 Pulse Ox 94 92 O2 Delivery Vapotherm Vapotherm Vapotherm O2 Flow Rate 40.00 40.00 40.00 65.00 FiO2 65 65 01/01/21 01/01/21 01/01/21 01/01/21 20:00 21:00 22:00 22:10 Pulse 95 89 88 Resp 18 23 25 B/P (MAP) 99/59 97/50 103/64 Pulse Ox 95 93 93 93 O2 Delivery Vapotherm Vapotherm Vapotherm Vapotherm O2 Flow Rate 40.00 40.00 40.00 40.00 65.00 65.00 65.00 FiO2 65 01/01/21 01/01/21 23:00 23:59 Pulse 86 Resp 23 B/P (MAP) 98/50 Pulse Ox 92 93 O2 Delivery Vapotherm Vapotherm O2 Flow Rate 40.00 40.00 65.00 FiO2 65 Capillary Refill : Progress Note #1: Time: 04:36 Progress Note Septic work-up. Concern for COVID-19 so we will start with just a single liter of fluids and readjust from there. We will cover her with broad-spectrum antibiotics given her history of chemotherapy. ABG obtained. Vapotherm placed. Progress Note #2: Time: 05:15 Progress Note I had a lengthy discussion with the patient and her about goals of care. She made statements that she did not want ABGs, accessed her port, urinary catheterization. Gave her comfort care versus an attempt at beating the infection in the ICU. Explained to her the seriousness of her illness. The patient states she does not want to be intubated. She will consent to a urinary catheterization lab draws and Port-A-Cath access. She says she does want to beat this infection if possible. She also wants to do chemotherapy next week. Explained to her that that is not likely to be offered to her given her current COVID-19 status and seriousness of her illness. We explained to her that she is on 90% FiO2 30 L by Vapotherm and does not have much room to get worse before and intubation would be required. Patient states she understands this and still does not want to be intubated. She wants to pursue therapy. Diagnostic Imaging Diagonstic Imaging: Xray Plain Films/CT/US/NM/MRI: chest Comments [facility] [place], [place] NAME: NAKITA MENARD [facility] REC#: [id number] PT STATUS: ADM IN : 1955 PHYSICIAN: MAINE DENNISON MD ADMIT DATE: 01/01/21/ICU Signed Date of Exam:01/01/21 CHEST 1 VIEW, AP/PA ONLY Indication: Sepsis. Compared: 12/09/2020 Findings: Significant bilateral infiltrates greater left than right are present, these of substantially improved in the interim. The heart size is within normal limits. There is a right IJ at the lower SVC. There is no pneumothorax. Impression: Improvements in the bilateral infiltrates with no adverse development apparent. Dictated by: Dictated on workstation # [id number] Dict: 01/01/21630 Trans: 01/01/21857 CV [id number] Interpreted by: JORGE LUIS REYES Electronically signed by: JORGE LUIS REYES 01/01/21857 Reviewed: Reviewed by Me Departure Communication (Admissions) Time/Spoke to Admitting Phy: 05:10 Discussed the case with Dr. Calero and she agrees to admit the patient to the ICU with consult eICU. Time/Spoke to Consulting Phy: 05:20 Discussed the case with eICU. Impression Primary Impression: COVID-19 Additional Impression: Acute and chronic respiratory failure with hypoxia Disposition: ADMITTED INPATIENT Condition: Critical Admissions Decision to Admit Reason: Admit from ER (General) Decision to Admit/Date: Jan 01, 2021 Time/Decision to Admit Time: 05:05 Departure-Patient Inst. Referrals: [facility] (PCP) Primary Care Physician BRETT RICHARDSON APRN (Family) Primary Care Physician MAINE DENNISON Jan 01, 2021 04:33
[2021-01-01 04:35] LABS: ABG BASE EXCESS -4.4 MMOL/L (-2.5-2.5); ABG OXYGEN SATURATION 89 % (94-100); ABG PCO2 34 MMHG (35-45); ABG PH 7.39 (7.37-7.43); ABG PO2 65 MMHG (79-93); ABG TCO2 20.2 MMOL/L (21.0-31.0); ALLENS TEST YES-POS; INSPIRED O2 8L; PATIENT TEMP 102.5; VENTILATOR NO
[2021-01-01] MEDS ORDERED: ACETAMINOPHEN 500 MG TAB (TYLENOL) PO ONE (04:45)
[2021-01-01] MEDS ORDERED: VANCOMYCIN INJECTION 750 MG in NS (IVPB) 250 ML IV ONE (05:30)
[2021-01-01 06:05] LABS: BASOPHILS % (AUTO) 0 % (0-10); EOSINOPHILS % (AUTO) 0 % (0-10); HEMATOCRIT 38 % (35-52); HEMOGLOBIN 12.4 g/dL (11.5-16.0); LYMPHOCYTES # (AUTO) 0.6 10^3/uL (1.0-4.0); LYMPHOCYTES % (AUTO) 10 % (12-44); MEAN CORPUSCULAR HEMOGLOBIN 28 pg (25-34); MEAN CORPUSCULAR HGB CONC 33 g/dL (32-36); MEAN CORPUSCULAR VOLUME 86 fL (80-99); MEAN PLATELET VOLUME 9.7 fL (9.0-12.2); MONOCYTES # (AUTO) 1.3 10^3/uL (0.0-1.0); MONOCYTES % (AUTO) 22 % (0-12); NEUTROPHILS # (AUTO) 3.8 10^3/uL (1.8-7.8); NEUTROPHILS % (AUTO) 66 % (42-75); PLATELET COUNT 497 10^3/uL (130-400); WHITE BLOOD COUNT 5.8 10^3/uL (4.3-11.0)
[2021-01-01 06:15] LABS: BILIRUBIN,URINE NEGATIVE (NEGATIVE); CLARITY,URINE CLEAR; COLOR,URINE YELLOW; GLUCOSE, URINE (UA) NEGATIVE (NEGATIVE); KETONES,URINE 1+ (NEGATIVE); LEUKOCYTE ESTERASE ,URINE TRACE (NEGATIVE); NITRITE,URINE NEGATIVE (NEGATIVE); PROTEIN,URINE 1+ (NEGATIVE)
[2021-01-01 06:16] LABS: ALBUMIN 3.2 GM/DL (3.2-4.5); CHLORIDE 102 MMOL/L (98-107); POTASSIUM 4.4 MMOL/L (3.6-5.0); SODIUM 132 MMOL/L (135-145)
[2021-01-01 06:17] LABS: CALCIUM 8.2 MG/DL (8.5-10.1)
[2021-01-01 06:18] LABS: GLUCOSE 351 MG/DL (70-105); TOTAL PROTEIN 6.1 GM/DL (6.4-8.2)
[2021-01-01 06:19] LABS: CARBON DIOXIDE 16 MMOL/L (21-32)
[2021-01-01 06:20] LABS: BILIRUBIN,TOTAL 0.4 MG/DL (0.1-1.0)
[2021-01-01 06:22] LABS: BACTERIA,URINE FEW /HPF
[2021-01-01 06:22] LABS: ALKALINE PHOSPHATASE 74 U/L (40-136); CREATININE SERUM 1.36 MG/DL (0.60-1.30); GFR ESTIMATED 39
[2021-01-01 06:23] LABS: BUN/CREATININE RATIO 11
[2021-01-01 06:24] LABS: FIBRIN DEGRADATION PRODUCTS 3.08 UG/ML (0.00-0.49); INR 1.1 (0.8-1.4)
[2021-01-01 06:25] LABS: ALANINE AMINOTRANSFERASE 25 U/L (0-55)
--- NOTE | 2021-01-01 06:44 | Diagnostic Imaging Report ---
Indication: Sepsis. Compared: 12/09/2020 Findings: Significant bilateral infiltrates greater left than right are present, these of substantially improved in the interim. The heart size is within normal limits. There is a right IJ at the lower SVC. There is no pneumothorax. Impression: Improvements in the bilateral infiltrates with no adverse development apparent. Dictated by: Dictated on workstation # [id number]
[2021-01-01] MEDS ORDERED: LACTATED RINGERS 1,000 ML IV ONE (08:00)
[2021-01-01] MEDS ORDERED: FLU QUADRIvalent (3YOA+) 60 mcg/0.5 ml 2021-22(AFLURIA) IM ONE (09:00)
--- NOTE | 2021-01-01 09:01 | Tele-ICU Consult ---
History of Present Illness History of Present Illness Date Seen by Provider: Jan 01, 2021 Time Seen by Provider: 09:00 Date of Admission 01/01/21 History of Present Illness She is a 65-year-old female with past medical history of advanced COPD requiring 5 L of home oxygen, recently diagnosed with a stage IV lung cancer status post 1 cycle of chemotherapy now presented with increasing shortness of breath and found to have a Covid19 pneumonia requiring Vapotherm for oxygenation. And she is admitted to the intensive care unit for close monitoring and management. Her D-dimers are elevated and BUN/creatinine elevated. She does not want to be intubated in case necessary but wants CPR and medications. Currently has no chest pain. Resting comfortably with Vapotherm in place. She has a history of type 2 diabetes mellitus. I made a video visit and discussed with the patient in detail. Allergies and Home Medications Allergies Coded Allergies: No Known Drug Allergies (Unverified , 04/16/20) Home Medications Albuterol Sulfate 1 Puff Puff, 2 PUFF IH Q4H PRN for SHORTNESS OF BREATH, (Reported) Budesonide/Formoterol Fumarate 10.2 Gm Hfa.aer.ad, 1 PUFF IH BID, (Reported) Cyanocobalamin (Vitamin B-12) 500 Mcg Lozenge, 500 MCG PO DAILY, (Reported) Dulaglutide 1.5 Mg/0.5 Ml Pen.injctr, 1.5 MG SQ SUNDAY, (Reported) Fluticasone/Salmeterol 1 Each Blst.w.dev, 1 EACH IH BID, (Reported) Insulin Aspart 300 Units/3 Ml Solution, 25 UNITS SQ TIDAC, (Reported) Insulin Detemir 100 Unit/1 Ml Insuln.pen, 30 UNIT SQ BID, (Reported) Ipratropium/Albuterol Sulfate 3 Ml Ampul.neb, 3 ML IH Q6H PRN for SHORTNESS OF BREATH Prescribed by: KOFI FLANAGAN on 05/05/20 1129 Metformin HCl 1,000 Mg Tablet, 1,000 MG PO BID, (Reported) Ondansetron 8 Mg Tab.rapdis, 8 MG PO Q8H PRN for NAUSEA/VOMITING, (Reported) Pantoprazole Sodium 40 Mg Tablet.dr, 40 MG PO DAILY, (Reported) Past Medical/Social/Family Hx Patient Social History Tobacco Use?: No Smoking Status: Former Smoker Use of E-Cig and/or Vaping dev: No Substance use?: No Alcohol Use?: No Pt stated abuse/neglect: No Immunizations Up To Date Influenza Vaccine Up-to-Date: No; Not Current Current Status status: No status: No Advance Directives: No Communicates: Verbally Primary Language: Rwandan Preferred Spoken Language: Rwandan Is interpretation needed?: No Sensory deficits: Vision impairment Implanted or Applied Medical D: Port-a-cath Review of Systems Constitutional: see HPI Other ROS PER ATTENDING PHYSICIAN Sepsis Event Evaluation Height, Weight, BMI Height: '" Weight: lbs. oz. kg; 35.09 BMI Method: Exam Exam Patient acknowledged, consented, and participated in this virtual visit which was conducted using real time audio/video Vital Signs Date Time Temp Pulse Resp B/P (MAP) Pulse Ox O2 Delivery O2 Flow Rate FiO2 01/01/21 08:39 95 Vapotherm 40.00 60.00 01/01/21 08:25 95 01/01/21 08:06 36.7 93 14 95/45 96 Vapotherm 40.00 70.00 01/01/21 07:41 94 24 88/46 98 Vapotherm 30.00 90.00 01/01/21 04:21 OxyMask 8.00 01/01/21 04:18 Nasal Cannula 4.00 01/01/21 04:18 39.1 138 28 116/68 (84) 83 Nasal Cannula 4.00 I & O 01/01/21 07:00 Intake Total 1550 ml Balance 1550 ml Height & Weight Height: '" Weight: lbs. oz. kg; 35.09 BMI Method: General Appearance: Anxious, Chronically ill, Severe Distress HEENT: PERRL/EOMI, TMs Normal; No Pharynx Normal, No Moist Mucous Membranes (Dry oral mucosa) Neck: Full Range of Motion, Normal Inspection Respiratory: Lungs Clear, Normal Breath Sounds, Accessory Muscle Use, Decreased Breath Sounds, Respiratory Distress Cardiovascular: Regular Rate, Rhythm, No Edema, Normal Peripheral Pulses Capillary Refill: Less Than 3 Seconds Extremity: Normal Capillary Refill, Normal Inspection, No Pedal Edema Neurologic/Psychiatric: Alert, Oriented x3, No Motor/Sensory Deficits Other comments PE PER ATTENDING PHYSICIAN Results Lab Laboratory Tests 01/01/21 05:[address] CHEST REVIEWED. Assessment/Plan Assessment/Plan 1. Covid19 pneumonia with ARDS 2. Acute and chronic hypoxic respiratory failure secondary to Covid pneumonia and underlying COPD 3. Advanced COPD requiring home oxygen at 5 L nasal cannula 4. Stage IV lung cancer adenocarcinoma status post 1 cycle of chemotherapy 6. Scratch that 5. Acute kidney injury secondary to Covid19 infection 6. High risk for DVT and a PE. Recommendations 1. Continue oxygenation with Vapotherm. 2. IV dexamethasone and monitor blood sugars. 3. DVT prophylaxis with Lovenox 4. She received Actemra already. 5. Monitor BUN and creatinine. 6. Insulin with sliding scale coverage per primary care physician. 7. Her overall prognosis is guarded due to multiple underlying advanced to the problems. 8. She is a DNI status but wants in case needed CPR and electrical shocks. Critical Care: Critically Ill Patient Time spent with patient (mins): 50 Diagnosis/Problems Problems/Diagonsis (1) Acute and chronic respiratory failure with hypoxia Status: Acute (2) COVID-19 Status: Acute (3) IDDM (insulin dependent diabetes mellitus) Status: Chronic (4) Elevated d-dimer Status: Acute (5) Cancer of left lung Status: Chronic Qualifiers: Qualified Codes: C34.92 - Malignant neoplasm of unspecified part of left bronchus or lung SHAQ MCKINNEY MD Jan 01, 2021 09:01
[2021-01-01] MEDS ORDERED: TOCILIZUMAB INJECTION (NON-FOR 600 MG in NS (IVPB) 70 ML IV ONE (09:15)
--- NOTE | 2021-01-01 09:17 | History & Physical-Hospitalist ---
History of Present Illness HPI/Chief Complaint This is a 65-year-old unvaccinated white female with a history of stage III-IV non small cell lung cancer per her history. She completed her first round of chemotherapy 3 weeks ago and is scheduled for her next round in 1 week. She had been doing fairly well on 5 L of oxygen which she has been on since last September. Yesterday she began to feel ill and had no symptoms other than increased somnolence. Her brought her to the emergency room where she was found to be Covid positive with infiltrates throughout the left lung and less infiltrates in the right. She was hypoxic and requiring Vapotherm to oxygenate. I have discussed her case with Fernandez our pharmacist who agrees with using Actemra at this time and it is without contraindication considering the severity of her disease. The emergency room physician had a long talk with the patient and she requests to not be intubated but that CPR be pursued. At the time of my interview this morning she is feeling better than she had. She does not have a productive cough that is new or any other symptoms that she is aware of. Discussed with Dr. Garcia who agrees with steroids and there is no contraindication to Actemra. Source: patient Exam Limitations: clinical condition Date Seen 01/01/21 Time Seen by a Provider: 09:00 Attending Physician Kinjal Alejandre MD PCP [facility] Referring Physician Date of Admission Jan 01, 2021 at 05:20 Home Medications & Allergies Home Medications Reviewed patient Home Medication Reconciliation performed by pharmacy medication reconciliations therapeutic massage technician and/or nursing. Patients Allergies have been reviewed. Allergies Allergies Coded Allergies No Known Drug Allergies (Unverified04/16/20) Past Abewlpb-Yllrjf-Zamvou Hx Patient Social History Marrital Status: Employed/Student: retired Tobacco Use?: No Smoking Status: Former Smoker Use of E-Cig and/or Vaping dev: No Substance use?: No Alcohol Use?: No Pt feels they are or have been: No Immunizations Up To Date Date of Influenza Vaccine: Nov 20, 2019 Seasonal Allergies Seasonal Allergies: Yes Current Status status: No status: No Advance Directives: No Communicates: Verbally Primary Language: Citizen Of [place] Preferred Spoken Language: Citizen Of [place] Is interpretation needed?: No Sensory deficits: Vision impairment Implanted or Applied Medical D: Port-a-cath Past Medical History Surgeries: Abdominal, Adenoidectomy, Appendectomy, Hysterectomy, Tonsillectomy COPD Currently Using CPAP: No Currently Using BIPAP: No High Cholesterol, Hypertension Neuropathy 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: Hysterectomy, Menopausal Chronic Diarrhea Chronic Back Pain, Fractures Diabetes, Insulin dep Hearing Impairment: Denies Lung Anxiety Blood Disorders: Yes (ANEMIA) Family Medical History Reviewed Nursing Family Hx No Pertinent Family Hx Review of Systems Constitutional: see HPI, weakness EENTM: no symptoms reported Respiratory: short of breath Cardiovascular: no symptoms reported Gastrointestinal: diarrhea Genitourinary: no symptoms reported Musculoskeletal: no symptoms reported Skin: no symptoms reported Psychiatric/Neurological: Anxiety Physical Exam Physical Exam Vital Signs Vital Signs - First Documented 01/01/21 08:15 FiO2 70 Capillary Refill : Less Than 3 Seconds Height, Weight, BMI Height: '" Weight: lbs. oz. kg; 35.09 BMI Method: General Appearance: Mild Distress HEENT: Other (Poor dentition) Neck: Limited Range of Motion Respiratory: Chest Non Tender, Lungs Clear, Normal Breath Sounds, Other (Increased respiratory rate) Cardiovascular: Regular Rate, Rhythm, No Edema, No Gallop, Normal Peripheral Pulses Gastrointestinal: Soft, Abnormal Bowel Sounds Back: Normal Inspection Extremity: Normal Capillary Refill, Non Tender, No Calf Tenderness Neurologic/Psychiatric: Alert, Oriented x3, No Motor/Sensory Deficits, Other (Slightly anxious) Skin: Normal Color, Warm/Dry Results Results/Procedures Labs Laboratory Tests 01/01/21 05:50 Patient resulted labs reviewed. Imaging: Reviewed Imaging Films, Reviewed Imaging Report Assessment/Plan Admission Diagnosis Acute on chronic respiratory failure Covid positive Cancer of the lung Type 2 diabetes on insulin Plan for Actemra, Decadron, respiratory toilet, DVT prophylaxis-prognosis is very guarded Admission Status: Inpatient Order (span 2 midnights) Reason for Inpatient Admission: Expecting long hospitalization with multiple complications secondary to comorbidities if indeed the patient survives Critical Care Critically Ill Patient CC Start/Stop Time : Critical Care Start Date: Jan 01, 2021 Critical Care Start Time: 08:45 Stop date: Jan 01, 2021 Stop Time: 09:30 Diagnosis/Problems Diagnosis/Problems (1) Acute and chronic respiratory failure with hypoxia Status: Acute (2) COVID-19 Status: Acute (3) Elevated d-dimer Status: Acute (4) IDDM (insulin dependent diabetes mellitus) Status: Chronic (5) Hypoxia Status: Chronic (6) Cancer of left lung Status: Chronic Qualifiers: Lung location: unspecified part of lung Qualified Codes: C34.92 - Malignant neoplasm of unspecified part of left bronchus or lung KINJAL ALEJANDRE MD Jan 01, 2021 09:17
[2021-01-01] MEDS: LACTATED RINGERS 1,000 ML IV SCH ×2 (10:05→15:57)
[2021-01-01] MEDS: ENOXAPARIN 40 MG/0.4 ML (LOVENOX) SYR SC SCH (10:05)
[2021-01-01 10:35] VITALS: BP 94/51
[2021-01-01] MEDS ORDERED: RT-ALBUTEROL HFA 8.5 GM INHALER IH PRN (11:00)
[2021-01-01] MEDS: inSUlin ASPART (NovoLOG) 1 UNIT/0.01 ML (CHARGE PER UNIT) SQ SCH ×3 (11:09→20:59)
[2021-01-01] MEDS ORDERED: RT-ALBUTEROL SULF 2.5 MG/3 ML PRE-MIX VIAL IH PRN (11:45)
[2021-01-01] MEDS ORDERED: ONDANSETRON 4 MG (ZOFRAN) ORAL DISSOLVE TAB PO PRN (11:45)
[2021-01-01] MEDS ORDERED: RT-ALBUTEROL/IPRATROPIUM 3 ML (DUONEB) VIAL IH PRN (11:45)
[2021-01-01] MEDS: RT-ALBUTEROL HFA 8.5 GM INHALER IH SCH ×3 (14:18→22:09)
[2021-01-01] MEDS ORDERED: ONDANSETRON 4 MG/2 ML (SDV) Z0FRAN IV PRN (17:00)
[2021-01-01] MEDS ORDERED: IBUPROFEN 600 MG (MOTRIN) TAB PO PRN (17:00)
[2021-01-01] MEDS ORDERED: morphine INJ 4 MG/ML 1 ML (VIAL/SYRINGE) IV PRN (17:00)
[2021-01-01] MEDS: CEFEPIME 1,000 MG/NS 50 ML IVPB IV SCH ×2 (17:12)
[2021-01-01] MEDS: VANCOMYCIN 1 GM/NS 250 ML IVPB IV SCH ×2 (17:12)
[2021-01-01] MEDS: ACETAMINOPHEN 500 MG TAB (TYLENOL) PO PRN (17:12)
[2021-01-02] MEDS: LACTATED RINGERS 1,000 ML IV SCH ×3 (00:23→21:17)
[2021-01-02] MEDS: CEFEPIME 1,000 MG/NS 50 ML IVPB IV SCH ×6 (00:23→16:18)
[2021-01-02] MEDS: RT-ALBUTEROL HFA 8.5 GM INHALER IH SCH ×6 (02:46→21:43)
[2021-01-02 04:26] LABS: BASOPHILS % (AUTO) 0 % (0-10); EOSINOPHILS # (AUTO) 0.1 10^3/uL (0.0-0.3); EOSINOPHILS % (AUTO) 5 % (0-10); HEMATOCRIT 35 % (35-52); LYMPHOCYTES # (AUTO) 0.9 10^3/uL (1.0-4.0); LYMPHOCYTES % (AUTO) 30 % (12-44); MEAN CORPUSCULAR HEMOGLOBIN 28 pg (25-34); MEAN CORPUSCULAR HGB CONC 31 g/dL (32-36); MEAN CORPUSCULAR VOLUME 89 fL (80-99); MEAN PLATELET VOLUME 9.9 fL (9.0-12.2); MONOCYTES # (AUTO) 0.4 10^3/uL (0.0-1.0); MONOCYTES % (AUTO) 15 % (0-12); NEUTROPHILS # (AUTO) 1.4 10^3/uL (1.8-7.8); NEUTROPHILS % (AUTO) 49 % (42-75); PLATELET COUNT 401 10^3/uL (130-400); WHITE BLOOD COUNT 2.9 10^3/uL (4.3-11.0)
[2021-01-02 04:36] LABS: ALBUMIN 2.7 GM/DL (3.2-4.5); POTASSIUM 3.6 MMOL/L (3.6-5.0)
[2021-01-02 04:37] LABS: CALCIUM 7.7 MG/DL (8.5-10.1)
[2021-01-02 04:40] LABS: BILIRUBIN,TOTAL 0.3 MG/DL (0.1-1.0)
[2021-01-02 04:42] LABS: CREATININE SERUM 0.9 MG/DL (0.60-1.30)
[2021-01-02 04:45] LABS: MAGNESIUM 2.1 MG/DL (1.6-2.4)
[2021-01-02] MEDS: KCL 20 MEQ TAB (K-DUR) PO SCH (04:45)
[2021-01-02] MEDS: POTASSIUM CL 10MEQ/50ML IVPB 50 ML IV SCH (04:45)
[2021-01-02] MEDS: MAGNESIUM 1 GM/100 ML IVPB 100 ML IV SCH (04:46)
[2021-01-02] MEDS: inSUlin ASPART (NovoLOG) 1 UNIT/0.01 ML (CHARGE PER UNIT) SQ SCH ×4 (05:42→21:17)
[2021-01-02] MEDS: VANCOMYCIN 1 GM/NS 250 ML IVPB IV SCH ×4 (05:45→16:18)
--- NOTE | 2021-01-02 06:52 | Diagnostic Imaging Report ---
INDICATION: Respiratory failure. COVID 19 pneumonia. Comparison made to previous study from January 01, 2021. FINDINGS: Bilateral interstitial and alveolar opacities within the lungs compatible with multifocal pneumonia are again demonstrated. Allowing for slight differences in positioning, there has not been evidence of significant interval change compared to the prior exam. Infiltrates obscure the left heart border, heart size appears to be stable. There is a right internal jugular port. There is no large effusion or pneumothorax evident. IMPRESSION: 1. No significant interval change in left greater than right interstitial and alveolar opacities compatible with multifocal pneumonia. Dictated by: Dictated on workstation # [id number]
--- NOTE | 2021-01-02 07:26 | Tele-ICU Progress Note ---
Progress Note Video rounds completed 65 y/o female with tage IV NSCCL, s/p 1st round of chemo therapy and advanced COPD on home oxygen admitted with COVID PNA Has been on vapotherm nd doing well Pulse 82 BP: 110/62 O2 sat: 92% Looks comfortable sitting up in bed On cefipime and vanc for PNA On decadron 10 Blood ugars running high but on sliding scale PLAN: continue ICU obs for high risk patient with COVID PNA Focused Exam Lactate Level 01/01/21 05:50: Lactic Acid Level 1.04 01/01/21 08:20: Lactic Acid Level 1.25 Height, Weight, BMI Height: '" Weight: lbs. oz. kg; 35.09 BMI Method: Laboratory Tests 01/02/21 04:15 Labs Laboratory Tests 01/02/21 04:15 Results Labs Labs Laboratory Tests 01/01/21 08:20: Lactic Acid Level 1.25 01/01/21 10:53: Glucometer 309H 01/01/21 16:08: Glucometer 200H 01/01/21 20:31: Glucometer 202H 01/02/21 04:15: White Blood Count 2.9L, Red Blood Count 3.94, Hemoglobin 11.0L, Hematocrit 35, Mean Corpuscular Volume 89, Mean Corpuscular Hemoglobin 28, Mean Corpuscular Hemoglobin Concent 31L, Red Cell Distribution Width 14.8H, Platelet Count 401H, Mean Platelet Volume 9.9, Immature Granulocyte % (Auto) 1, Neutrophils (%) (Auto) 49, Lymphocytes (%) (Auto) 30, Monocytes (%) (Auto) 15H, Eosinophils (%) (Auto) 5, Basophils (%) (Auto) 0, Neutrophils # (Auto) 1.4L, Lymphocytes # (Auto) 0.9L, Monocytes # (Auto) 0.4, Eosinophils # (Auto) 0.1, Basophils # (Auto) 0.0, Immature Granulocyte # (Auto) 0.0, Sodium Level 137, Potassium Level 3.6, Chloride Level 108H, Carbon Dioxide Level 16L, Anion Gap 13, Blood Urea Nitrogen 10, Creatinine 0.90, Estimat Glomerular Filtration Rate 63, BUN/Creatinine Ratio 11, Glucose Level 210H, Calcium Level 7.7L, Corrected Calcium 8.7, Magnesium Level 2.1, Total Bilirubin 0.3, Aspartate Amino Transf (AST/SGOT) 49H, Alanine Aminotransferase (ALT/SGPT) 24, Alkaline Phosphatase 60, Total Protein 5.0L, Albumin 2.7L Microbiology 01/01/21 MRSA Screen - Final, Complete MRSA not isolated KATIE CHASE MD Jan 02, 2021 07:26
[2021-01-02] MEDS: ENOXAPARIN 40 MG/0.4 ML (LOVENOX) SYR SC SCH (08:04)
[2021-01-02] MEDS: ACETAMINOPHEN 500 MG TAB (TYLENOL) PO PRN ×2 (08:05→19:40)
[2021-01-02] MEDS: PANTOPRAZOLE 40 MG (PROTONIX) TAB PO SCH (08:05)
[2021-01-02] MEDS ORDERED: FUROSEMIDE 40 MG/4 ML INJ (LASIX) ONE (09:00)
[2021-01-02] MEDS ORDERED: FUROSEMIDE 40 MG/4 ML INJ (LASIX) IVP STA (09:02)
[2021-01-02] MEDS ORDERED: BISMUTH SUBSALICYLATE 262 MG (PEPTO BISMOL) TABLET PO PRN (09:45)
--- NOTE | 2021-01-02 09:50 | Progress Note - Hospitalist ---
Subjective HPI/CC On Admission Date Seen by Provider: Jan 02, 2021 Time Seen by Provider: 09:15 This is a 65-year-old unvaccinated white female with a history of stage III-IV non small cell lung cancer per her history. She completed her first round of chemotherapy 3 weeks ago and is scheduled for her next round in 1 week. She had been doing fairly well on 5 L of oxygen which she has been on since last September. Yesterday she began to feel ill and had no symptoms other than increased somnolence. Her brought her to the emergency room where she was found to be Covid positive with infiltrates throughout the left lung and less infiltrates in the right. She was hypoxic and requiring Vapotherm to oxygenate. I have discussed her case with Fernandez our pharmacist who agrees with using Actemra at this time and it is without contraindication considering the severity of her disease. The emergency room physician had a long talk with the patient and she requests to not be intubated but that CPR be pursued. At the time of my interview this morning she is feeling better than she had. She does not have a productive cough that is new or any other symptoms that she is aware of. Discussed with Dr. Garcia who agrees with steroids and there is no contraindication to Actemra. Subjective/Events-last exam The patient is beginning to desaturate despite increasing the Vapotherm this morning. We have begun proning to increase and improve oxygenation. Patient continues to be rather unrealistic about her prognosis. I discussed her case with Dr. Garcia yesterday. Appreciate eICU's help. Patient does complain of diarrhea this morning. Fluids have been running at about 150 cc an hour. We will give 1 dose of Lasix decrease the IV fluids to TKO as it may help more to run her dry Review of Systems Gastrointestinal: Diarrhea Focused Exam Lactate Level 01/01/21 05:50: Lactic Acid Level 1.04 01/01/21 08:20: Lactic Acid Level 1.25 Objective Exam Vital Signs Vital Signs Date Time Temp Pulse Resp B/P (MAP) Pulse Ox O2 Delivery O2 Flow Rate FiO2 01/02/21 14:00 84 30 120/97 97 Vapotherm 40.00 75.00 01/02/21 11:18 75 01/02/21 07:58 36.2 Capillary Refill : Less Than 3 Seconds General Appearance: Mild Distress HEENT: Normal ENT Inspection Neck: Normal Inspection, Limited Range of Motion Respiratory: Chest Non Tender, Lungs Clear, Normal Breath Sounds, Other (Dyspneic with talking) Cardiovascular: Regular Rate, Rhythm, No Gallop, No Murmur Gastrointestinal: Normal Bowel Sounds, Non Tender, Soft Rectal: Deferred Extremity: Pedal Edema Neurologic/Psychiatric: Alert, Oriented x3, No Motor/Sensory Deficits Skin: Normal Color, Warm/Dry Results/Procedures Lab Laboratory Tests 01/02/21 04:15 Patient resulted labs reviewed. 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 Garcia to see in the morning Leukopenia Diarrhea we will start Pepto-Bismol Critical Care Critically Ill Patient Diagnosis/Problems Diagnosis/Problems (1) Acute and chronic respiratory failure with hypoxia Status: Acute (2) COVID-19 Status: Acute (3) Elevated d-dimer Status: Acute (4) IDDM (insulin dependent diabetes mellitus) Status: Chronic (5) Hypoxia Status: Chronic (6) Cancer of left lung Status: Chronic Qualifiers: Lung location: unspecified part of lung Qualified Codes: C34.92 - Malignant neoplasm of unspecified part of left bronchus or lung DORA ALEJANDRE MD Jan 02, 2021 09:50
[2021-01-03] MEDS: CEFEPIME 1,000 MG/NS 50 ML IVPB IV SCH ×10 (00:07→23:52)
[2021-01-03] MEDS: RT-ALBUTEROL HFA 8.5 GM INHALER IH SCH ×6 (02:47→22:26)
[2021-01-03 04:22] LABS: BASOPHILS % (AUTO) 0 % (0-10); EOSINOPHILS % (AUTO) 1 % (0-10); HEMATOCRIT 39 % (35-52); HEMOGLOBIN 12.2 g/dL (11.5-16.0); LYMPHOCYTES # (AUTO) 0.9 10^3/uL (1.0-4.0); LYMPHOCYTES % (AUTO) 26 % (12-44); MEAN CORPUSCULAR HEMOGLOBIN 28 pg (25-34); MEAN CORPUSCULAR HGB CONC 32 g/dL (32-36); MEAN CORPUSCULAR VOLUME 87 fL (80-99); MEAN PLATELET VOLUME 10.2 fL (9.0-12.2); MONOCYTES # (AUTO) 0.3 10^3/uL (0.0-1.0); MONOCYTES % (AUTO) 9 % (0-12); NEUTROPHILS # (AUTO) 2.2 10^3/uL (1.8-7.8); NEUTROPHILS % (AUTO) 64 % (42-75); PLATELET COUNT 430 10^3/uL (130-400); WHITE BLOOD COUNT 3.4 10^3/uL (4.3-11.0)
[2021-01-03 04:35] LABS: ALBUMIN 2.9 GM/DL (3.2-4.5)
[2021-01-03 04:36] LABS: POTASSIUM 3.4 MMOL/L (3.6-5.0)
[2021-01-03 04:37] LABS: CALCIUM 8.2 MG/DL (8.5-10.1)
[2021-01-03 04:38] LABS: TOTAL PROTEIN 5.4 GM/DL (6.4-8.2)
[2021-01-03 04:40] LABS: BILIRUBIN,TOTAL 0.2 MG/DL (0.1-1.0)
[2021-01-03 04:42] LABS: CREATININE SERUM 1.07 MG/DL (0.60-1.30)
[2021-01-03] MEDS: POTASSIUM CL 10MEQ/50ML IVPB 50 ML IV SCH (04:47)
[2021-01-03] MEDS: KCL 20 MEQ TAB (K-DUR) PO SCH (04:47)
[2021-01-03] MEDS: MAGNESIUM 1 GM/100 ML IVPB 100 ML IV SCH (04:47)
[2021-01-03] MEDS: inSUlin ASPART (NovoLOG) 1 UNIT/0.01 ML (CHARGE PER UNIT) SQ SCH ×2 (04:48→11:29)
[2021-01-03] MEDS: VANCOMYCIN 1 GM/NS 250 ML IVPB IV SCH ×4 (06:03→17:32)
[2021-01-03] MEDS ORDERED: KCL 20 MEQ TAB (K-DUR) PO ONE (08:00)
[2021-01-03] MEDS: PANTOPRAZOLE 40 MG (PROTONIX) TAB PO SCH (08:12)
[2021-01-03] MEDS: ENOXAPARIN 40 MG/0.4 ML (LOVENOX) SYR SC SCH (08:12)
[2021-01-03] MEDS: ACETAMINOPHEN 500 MG TAB (TYLENOL) PO PRN (08:24)
--- NOTE | 2021-01-03 09:57 | Tele-ICU Progress Note ---
Subjective Date Seen by a Provider: Jan 03, 2021 Time Seen by a Provider: 09:57 Sepsis Event Evaluation Height, Weight, BMI Height: '" Weight: lbs. oz. kg; 35.09 BMI Method: Focused Exam Lactate Level 01/01/21 05:50: Lactic Acid Level 1.04 01/01/21 08:20: Lactic Acid Level 1.25 Exam Exam Patient acknowledged, consented, and participated in this virtual visit which was conducted using real time audio/video Vital Signs Date Time Temp Pulse Resp B/P (MAP) Pulse Ox O2 Delivery O2 Flow Rate FiO2 01/03/21 07:29 91 Vapotherm 35.00 60 01/03/21 07:00 84 01/03/21 06:00 92 20 131/65 92 Vapotherm 35.00 60.00 01/03/21 05:00 82 20 124/63 91 Vapotherm 35.00 60.00 01/03/21 04:00 87 17 109/57 94 Vapotherm 35.00 60.00 01/03/21 03:15 97 Vapotherm 35.00 60 01/03/21 03:10 36.7 Vapotherm 35.00 60.00 01/03/21 03:00 89 21 106/31 95 Vapotherm 35.00 60.00 01/03/21 02:52 Vapotherm 35.00 60.00 01/03/21 02:48 95 Vapotherm 35.00 60 01/03/21 02:00 87 17 117/55 96 Vapotherm 35.00 65.00 01/03/21 01:00 94 19 108/61 98 Vapotherm 35.00 65.00 01/03/21 01:00 70 01/03/21 00:00 94 20 101/56 91 Vapotherm 35.00 65.00 01/03/21 00:00 90 Vapotherm 35.00 65 01/03/21 00:00 37.6 90 Vapotherm 35.00 65.00 01/02/21 23:00 101 23 118/56 92 Vapotherm 35.00 65.00 01/02/21 22:00 104 23 121/60 91 Vapotherm 35.00 65.00 01/02/21 21:43 92 Vapotherm 35.00 65 01/02/21 21:14 37.9 01/02/21 21:00 98 16 122/69 94 Vapotherm 35.00 65.00 01/02/21 20:22 37.8 01/02/21 20:00 97 20 122/64 96 Vapotherm 35.00 65.00 01/02/21 19:40 38.0 01/02/21 19:35 97 Vapotherm 35.00 65 01/02/21 19:30 38.0 Vapotherm 35.00 65.00 01/02/21 19:00 105 01/02/21 19:00 105 24 132/96 95 Vapotherm 35.00 65.00 01/02/21 18:44 97 Vapotherm 35.00 65 01/02/21 18:00 89 24 119/72 95 Vapotherm 35.00 65.00 01/02/21 17:00 97 22 147/79 98 Vapotherm 35.00 65.00 01/02/21 16:31 Vapotherm 35.00 65 01/02/21 16:24 36.6 Vapotherm 35.00 65.00 01/02/21 16:00 88 20 122/69 98 Vapotherm 40.00 75.00 01/02/21 15:00 89 22 118/95 93 Vapotherm 40.00 75.00 01/02/21 14:46 35.00 65 01/02/21 14:45 98 Vapotherm 40.00 70 01/02/21 14:00 84 30 120/97 97 Vapotherm 40.00 75.00 01/02/21 13:00 93 25 111/74 97 Vapotherm 40.00 75.00 01/02/21 12:24 87 01/02/21 12:20 94 Vapotherm 40.00 75.00 01/02/21 12:00 87 22 92/46 97 Vapotherm 40.00 70.00 01/02/21 11:18 92 Vapotherm 40.00 75 01/02/21 11:00 97 16 95/59 92 Vapotherm 40.00 70.00 01/02/21 10:57 93 Vapotherm 40.00 75 01/02/21 10:00 89 20 92/63 94 Vapotherm 40.00 70.00 I & O 01/03/21 07:00 Intake Total 2235 ml Output Total 3600 ml Balance -1365 ml Height & Weight Height: '" Weight: lbs. oz. kg; 35.09 BMI Method: General Appearance: Mild Distress HEENT: Normal ENT Inspection Neck: Normal Inspection, Limited Range of Motion Respiratory: Chest Non Tender, Lungs Clear, Normal Breath Sounds, Other (Dyspneic with talking) Cardiovascular: Regular Rate, Rhythm, No Gallop, No Murmur Capillary Refill: Less Than 3 Seconds Extremity: Pedal Edema Neurologic/Psychiatric: Alert, Oriented x3, No Motor/Sensory Deficits Skin: Normal Color, Warm/Dry Results Lab Laboratory Tests 01/02/21 04:15 01/03/21 04:15 Assessment/Plan Assessment/Plan (Tele-ICU Physician , Progress Note ) Available chart/ vitals / labs / Images reviewed Video assessment done using teleICU camera, rest of exam as per RN Discussed with RN , EXAM PER RN Events overnight : Afebrile I/O = neg Drips: Pressors: , hemodynamically stable Consultants: Hospital course: 01/01 - to ICU with Covid19 pneumonia requiring Vapotherm A/P Acute and chronic hypoxic respiratory failure secondary to Covid pneumonia and underlying COPD - VT 35 L 60 % -prone position if able - conservative fluid strategy (aim for even or negative fluid balance [id number]/COVID-19 PNA ( - unvaccinated , DX -Dexamethasone IV 01/01 -Cytokine release syndrome s/p Tocilizumab 01/01 , ( Acyclovir for HSV/VZV prophylaxis after Tocilizumab- 30 days 400 po bid ) -Hypercoagulable state , DDIMER 3.8 on 01/01 -> lovenox ppx dose , follow D dimer today - high risk with current CA - > if elevated will need CT chest Suspected superimposed bact PNA -empiric abx started on 01/01 cefepime , Vanco Cx sputum Diabetes Mellitus - ISS , close f/up on steroids transaminitis likely due to COVID-19. - monitor Advanced COPD - requiring 5 L of home oxygen - nebss, steroids Stage IV lung cancer adenocarcinoma -status post 1 cycle of chemotherapy Urine cx - Hafnia alvei DNI status but wants in case needed CPR and electrical shocks. Lines : (Central Line Necessity Reviewed) Valente: OG: Nutrition: Analgesia: Anxiety/ delirium VTE Prophylaxis: lovenox Stress Ulcer Prophylaxis: PPi Plans in collaboration with bedside consultants and IM MDs. Discussed with RN to reach out if any questions or concerns A total of 33 minutes of critical care time was devoted to this patient today, required to treat and/or prevent further deterioration of critical care condition ( as above) . ABHIJIT STAFFORD MD Jan 03, 2021 09:57
--- NOTE | 2021-01-03 10:20 | Progress Note - Hospitalist ---
Subjective HPI/CC On Admission Date Seen by Provider: Jan 03, 2021 Time Seen by Provider: 11:00 This is a 65-year-old unvaccinated white female with a history of stage III-IV non small cell lung cancer per her history. She completed her first round of chemotherapy 3 weeks ago and is scheduled for her next round in 1 week. She had been doing fairly well on 5 L of oxygen which she has been on since last September. Yesterday she began to feel ill and had no symptoms other than increased somnolence. Her brought her to the emergency room where she was found to be Covid positive with infiltrates throughout the left lung and less infiltrates in the right. She was hypoxic and requiring Vapotherm to oxygenate. I have discussed her case with Fernandez our pharmacist who agrees with using Actemra at this time and it is without contraindication considering the severity of her disease. The emergency room physician had a long talk with the patient and she requests to not be intubated but that CPR be pursued. At the time of my interview this morning she is feeling better than she had. She does not have a productive cough that is new or any other symptoms that she is aware of. Discussed with Dr. Garcia who agrees with steroids and there is no contraindication to Actemra. Subjective/Events-last exam Pt doing about the same Remains on Vapotherm Dr. Melendez will consult Diagnosed with Lung cancer and started chemo three weeks ago She is a Do Not Intubate Trying to prone and remains on Vapotherm Review of Systems General: Fatigue Pulmonary: Dyspnea Focused Exam Lactate Level 01/01/21 05:50: Lactic Acid Level 1.04 01/01/21 08:20: Lactic Acid Level 1.25 Objective Exam Vital Signs Vital Signs Date Time Temp Pulse Resp B/P (MAP) Pulse Ox O2 Delivery O2 Flow Rate FiO2 01/04/21 04:00 87 Vapotherm 40.00 70 01/04/21 04:00 37.1 01/04/21 03:00 82 33 98/50 Capillary Refill : Less Than 3 Seconds General Appearance: No Apparent Distress, WD/WN, Anxious, Chronically ill, Obes e Respiratory: No Respiratory Distress, Accessory Muscle Use, Decreased Breath Sounds Cardiovascular: Regular Rate, Rhythm Neurologic/Psychiatric: Alert, Oriented x3, No Motor/Sensory Deficits, Normal Mood/Affect Results/Procedures Lab Laboratory Tests 01/04/21 04:24 Patient resulted labs reviewed. Imaging: Reviewed Imaging Films, Reviewed Imaging Report Assessment/Plan Assessment and Plan Assess & Plan/Chief Complaint Assessment: Acute hypoxic respiratory failure COVID-19 pneumonia Bronchioloalveolar type adenocarcinoma of lung Plan: Vapotherm Supportive care Prognosis guarded Critical Care Critically Ill Patient JONATAN DALY DO Jan 03, 2021 10:20
[2021-01-03] MEDS ORDERED: DEXA4TAB PO (11:19)
[2021-01-03] MEDS ORDERED: IPRA3AMP31 IH (11:19)
[2021-01-03] MEDS ORDERED: CHOL200074 PO (11:19)
[2021-01-03] MEDS ORDERED: GABA300C PO (11:19)
[2021-01-03] MEDS ORDERED: ASCO500T17 PO (11:19)
[2021-01-03] MEDS ORDERED: CLON1TAB13 PO (11:19)
[2021-01-03] MEDS ORDERED: ZINC50TA58 PO (11:19)
[2021-01-03] MEDS ORDERED: DULA3PEN SQ (11:26)
[2021-01-03] MEDS: NOREPINEPHRINE 8 MG/250 ML 250 ML IV SCH (13:00)
[2021-01-03] MEDS: CHLORASEPTIC LOZENGE MM PRN ×2 (13:30→22:23)
[2021-01-03] MEDS: LACTATED RINGERS 1,000 ML IV SCH (13:31)
--- NOTE | 2021-01-03 17:16 | Progress Note ---
Standard Progress Note Progress Notes/Assess & Plan Date Seen by a Provider: Jan 03, 2021 Time Seen by a Provider: 17:11 Progress/Assessment & Plan 65-year-old female with bronchioloalveolar type adenocarcinoma of lung diagnosed approximately 2 months ago. She had bilateral lung infiltrates with left side worse than right for several months and treated for pneumonia with numerous courses of antibiotics without improvement. Eventually a biopsy confirmed the diagnosis of bronchioloalveolar type adenocarcinoma with bilateral lung involvement. She was started on palliative chemotherapy with carboplatin/Alimta/pembrolizumab regimen on 12/13/2020. She was admitted to the hospital with COVID-19 and hypoxia on 12/01/2020. I talked to the patient by phone today who said she is feeling better than 2 days ago. She is requiring oxygen by Vapotherm at 70% FiO2. Continue management of COVID-19 as you are doing. Continue folic acid 1 mg daily because of chemotherapy with Alimta. We will delay her second course of chemotherapy which is due on 01/04/2021. Contact the cancer center before she is ready to be discharged and we will schedule a follow-up appointment for evaluation and to resume chemotherapy. Focused Exam Lactate Level 01/01/21 05:50: Lactic Acid Level 1.04 01/01/21 08:20: Lactic Acid Level 1.25 RAJANI SPIVEY Jan 03, 2021 17:16
[2021-01-03] MEDS: ACYCLOVIR 400 MG TABLET (ZOVIRAX) PO SCH (17:35)
[2021-01-03] MEDS: inSUlin ASPART (NovoLOG) 1 UNIT/0.01 ML (CHARGE PER UNIT) SC SCH ×2 (17:41→21:04)
[2021-01-04] MEDS: RT-ALBUTEROL HFA 8.5 GM INHALER IH SCH ×6 (02:43→22:02)
[2021-01-04 04:31] LABS: BASOPHILS % (AUTO) 0 % (0-10); EOSINOPHILS % (AUTO) 0 % (0-10); HEMATOCRIT 42 % (35-52); HEMOGLOBIN 13.1 g/dL (11.5-16.0); LYMPHOCYTES # (AUTO) 0.8 10^3/uL (1.0-4.0); LYMPHOCYTES % (AUTO) 23 % (12-44); MEAN CORPUSCULAR HEMOGLOBIN 27 pg (25-34); MEAN CORPUSCULAR HGB CONC 32 g/dL (32-36); MEAN CORPUSCULAR VOLUME 87 fL (80-99); MEAN PLATELET VOLUME 10.2 fL (9.0-12.2); MONOCYTES # (AUTO) 0.4 10^3/uL (0.0-1.0); MONOCYTES % (AUTO) 11 % (0-12); NEUTROPHILS # (AUTO) 2.2 10^3/uL (1.8-7.8); NEUTROPHILS % (AUTO) 65 % (42-75); PLATELET COUNT 401 10^3/uL (130-400); WHITE BLOOD COUNT 3.4 10^3/uL (4.3-11.0)
[2021-01-04 04:45] LABS: ALBUMIN 3.1 GM/DL (3.2-4.5)
[2021-01-04 04:46] LABS: POTASSIUM 4.5 MMOL/L (3.6-5.0)
[2021-01-04 04:47] LABS: CALCIUM 8.4 MG/DL (8.5-10.1)
[2021-01-04 04:48] LABS: TOTAL PROTEIN 5.7 GM/DL (6.4-8.2)
[2021-01-04 04:50] LABS: BILIRUBIN,TOTAL 0.2 MG/DL (0.1-1.0)
[2021-01-04] MEDS: NOREPINEPHRINE 8 MG/250 ML 250 ML IV SCH ×2 (04:56→18:23)
[2021-01-04] MEDS: POTASSIUM CL 10MEQ/50ML IVPB 50 ML IV SCH (05:08)
[2021-01-04] MEDS: KCL 20 MEQ TAB (K-DUR) PO SCH (05:08)
[2021-01-04] MEDS: MAGNESIUM 1 GM/100 ML IVPB 100 ML IV SCH (05:08)
[2021-01-04] MEDS: CEFEPIME 1,000 MG/NS 50 ML IVPB IV SCH ×8 (05:37→23:51)
[2021-01-04] MEDS: VANCOMYCIN 1 GM/NS 250 ML IVPB IV SCH ×2 (05:55)
[2021-01-04] MEDS: inSUlin ASPART (NovoLOG) 1 UNIT/0.01 ML (CHARGE PER UNIT) SC SCH ×4 (06:10→21:01)
[2021-01-04] MEDS: CHLORASEPTIC LOZENGE MM PRN (06:50)
[2021-01-04] MEDS: ACYCLOVIR 400 MG TABLET (ZOVIRAX) PO SCH ×2 (08:15→16:36)
[2021-01-04] MEDS: PANTOPRAZOLE 40 MG (PROTONIX) TAB PO SCH (08:17)
[2021-01-04] MEDS: ACETAMINOPHEN 500 MG TAB (TYLENOL) PO PRN (08:17)
[2021-01-04] MEDS: ENOXAPARIN 40 MG/0.4 ML (LOVENOX) SYR SC SCH (08:17)
--- NOTE | 2021-01-04 09:57 | Progress Note - Hospitalist ---
Subjective HPI/CC On Admission Date Seen by Provider: Jan 04, 2021 Time Seen by Provider: 09:45 This is a 65-year-old unvaccinated white female with a history of stage III-IV non small cell lung cancer per her history. She completed her first round of chemotherapy 3 weeks ago and is scheduled for her next round in 1 week. She had been doing fairly well on 5 L of oxygen which she has been on since last September. Yesterday she began to feel ill and had no symptoms other than increased somnolence. Her brought her to the emergency room where she was found to be Covid positive with infiltrates throughout the left lung and less infiltrates in the right. She was hypoxic and requiring Vapotherm to oxygenate. I have discussed her case with Fernandez our pharmacist who agrees with using Actemra at this time and it is without contraindication considering the severity of her disease. The emergency room physician had a long talk with the patient and she requests to not be intubated but that CPR be pursued. At the time of my interview this morning she is feeling better than she had. She does not have a productive cough that is new or any other symptoms that she is aware of. Discussed with Dr. Garcia who agrees with steroids and there is no contraindication to Actemra. Subjective/Events-last exam Had a heart to heart talk with her Palliative nurse will be consulted Wants to go home Maintain on Vapotherm Will try BiPAP Dr. Kemp in agreement with the plan Review of Systems General: Fatigue, Malaise Pulmonary: Dyspnea Objective Exam Vital Signs Vital Signs Date Time Temp Pulse Resp B/P (MAP) Pulse Ox O2 Delivery O2 Flow Rate FiO2 01/05/21 04:08 94 Vapotherm 40.00 95 01/05/21 03:00 84 90/66 01/05/21 01:30 39 01/04/21 20:00 36.9 Capillary Refill : Less Than 3 Seconds General Appearance: Anxious, Chronically ill, Moderate Distress, Obese Respiratory: Accessory Muscle Use, Decreased Breath Sounds Cardiovascular: Regular Rate, Rhythm Neurologic/Psychiatric: Alert, Oriented x3, No Motor/Sensory Deficits, Normal Mood/Affect Results/Procedures Lab Patient resulted labs reviewed. Imaging: Reviewed Imaging Films, Reviewed Imaging Report Assessment/Plan Assessment and Plan Assess & Plan/Chief Complaint Assessment: Acute hypoxic respiratory failure COVID-19 pneumonia Bronchioloalveolar type adenocarcinoma of lung on palliative chemotherapy Plan: Vapotherm Supportive care Prognosis guarded 01/04/2021: Palliative care nurse consult Prognosis poor Critical Care Critically Ill Patient JONATAN DALY DO Jan 04, 2021 09:57
[2021-01-04] MEDS: LACTATED RINGERS 1,000 ML IV SCH (21:02)
[2021-01-05] MEDS: RT-ALBUTEROL HFA 8.5 GM INHALER IH SCH ×6 (02:20→22:21)
[2021-01-05] MEDS: inSUlin ASPART (NovoLOG) 1 UNIT/0.01 ML (CHARGE PER UNIT) SC SCH ×4 (05:56→20:09)
[2021-01-05] MEDS: CEFEPIME 1,000 MG/NS 50 ML IVPB IV SCH ×6 (06:02→17:16)
[2021-01-05 06:10] LABS: BASOPHILS % (AUTO) 0 % (0-10); EOSINOPHILS % (AUTO) 0 % (0-10); HEMATOCRIT 41 % (35-52); LYMPHOCYTES # (AUTO) 0.9 10^3/uL (1.0-4.0); LYMPHOCYTES % (AUTO) 15 % (12-44); MEAN CORPUSCULAR HEMOGLOBIN 28 pg (25-34); MEAN CORPUSCULAR HGB CONC 32 g/dL (32-36); MEAN CORPUSCULAR VOLUME 87 fL (80-99); MEAN PLATELET VOLUME 10.7 fL (9.0-12.2); MONOCYTES # (AUTO) 0.4 10^3/uL (0.0-1.0); MONOCYTES % (AUTO) 6 % (0-12); NEUTROPHILS # (AUTO) 4.7 10^3/uL (1.8-7.8); NEUTROPHILS % (AUTO) 78 % (42-75); PLATELET COUNT 373 10^3/uL (130-400)
[2021-01-05 06:21] LABS: ALBUMIN 3.1 GM/DL (3.2-4.5)
[2021-01-05] MEDS: POTASSIUM CL 10MEQ/50ML IVPB 50 ML IV SCH (06:22)
[2021-01-05] MEDS: KCL 20 MEQ TAB (K-DUR) PO SCH (06:22)
[2021-01-05 06:23] LABS: CALCIUM 8.4 MG/DL (8.5-10.1)
[2021-01-05 06:24] LABS: TOTAL PROTEIN 5.7 GM/DL (6.4-8.2)
[2021-01-05 06:26] LABS: BILIRUBIN,TOTAL 0.3 MG/DL (0.1-1.0)
[2021-01-05 06:27] LABS: CREATININE SERUM 0.94 MG/DL (0.60-1.30)
[2021-01-05] MEDS: MAGNESIUM 1 GM/100 ML IVPB 100 ML IV SCH (06:35)
[2021-01-05] MEDS: NOREPINEPHRINE 8 MG/250 ML 250 ML IV SCH ×2 (08:37→22:27)
[2021-01-05] MEDS: ACYCLOVIR 400 MG TABLET (ZOVIRAX) PO SCH ×2 (08:37→17:16)
[2021-01-05] MEDS: ENOXAPARIN 40 MG/0.4 ML (LOVENOX) SYR SC SCH (08:37)
[2021-01-05] MEDS: PANTOPRAZOLE 40 MG (PROTONIX) TAB PO SCH (08:37)
--- NOTE | 2021-01-05 09:40 | Progress Note - Hospitalist ---
Subjective HPI/CC On Admission Date Seen by Provider: Jan 05, 2021 Time Seen by Provider: 10:00 This is a 65-year-old unvaccinated white female with a history of stage III-IV non small cell lung cancer per her history. She completed her first round of chemotherapy 3 weeks ago and is scheduled for her next round in 1 week. She had been doing fairly well on 5 L of oxygen which she has been on since last September. Yesterday she began to feel ill and had no symptoms other than increased somnolence. Her brought her to the emergency room where she was found to be Covid positive with infiltrates throughout the left lung and less infiltrates in the right. She was hypoxic and requiring Vapotherm to oxygenate. I have discussed her case with Fernandez our pharmacist who agrees with using Actemra at this time and it is without contraindication considering the severity of her disease. The emergency room physician had a long talk with the patient and she requests to not be intubated but that CPR be pursued. At the time of my interview this morning she is feeling better than she had. She does not have a productive cough that is new or any other symptoms that she is aware of. Discussed with Dr. Garcia who agrees with steroids and there is no contraindication to Actemra. Subjective/Events-last exam Pt doing about the same On forty liters on 100% on Vapotherm Pt has poor prognosis Can't tolerate BiPAP Overall seems to be doing about the same but requiring more oxygen She is a do not intubate Review of Systems Pulmonary: Dyspnea Objective Exam Vital Signs Vital Signs Date Time Temp Pulse Resp B/P (MAP) Pulse Ox O2 Delivery O2 Flow Rate FiO2 01/06/21 04:00 39.9 Vapotherm 40.00 100.00 01/06/21 04:00 87 100 01/06/21 01:00 90 01/06/21 00:00 104/61 01/05/21 17:00 32 Capillary Refill : Less Than 3 Seconds General Appearance: No Apparent Distress, WD/WN, Anxious, Chronically ill Respiratory: No Accessory Muscle Use, No Respiratory Distress, Decreased Breath Sounds Cardiovascular: Regular Rate, Rhythm Neurologic/Psychiatric: Alert, Oriented x3, No Motor/Sensory Deficits, Normal Mood/Affect Results/Procedures Lab Laboratory Tests 01/05/21 05:45 01/06/21 03:57 Patient resulted labs reviewed. 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
--- NOTE | 2021-01-05 09:50 | Tele-ICU Progress Note ---
Subjective Date Seen by a Provider: Jan 05, 2021 Time Seen by a Provider: 09:49 Sepsis Event Evaluation Height, Weight, BMI Height: '" Weight: lbs. oz. kg; 35.09 BMI Method: Exam Exam Patient acknowledged, consented, and participated in this virtual visit which was conducted using real time audio/video Vital Signs Date Time Temp Pulse Resp B/P (MAP) Pulse Ox O2 Delivery O2 Flow Rate FiO2 01/05/21 09:00 84 28 86/59 92 Vapotherm 40.00 95.00 01/05/21 08:00 87 36 100/52 88 Vapotherm 40.00 95.00 01/05/21 08:00 91 Vapotherm 40.00 100 01/05/21 07:00 75 33 112/61 90 Vapotherm 40.00 95.00 01/05/21 07:00 82 01/05/21 06:38 92 Vapotherm 40.00 100 01/05/21 06:00 82 35 82/57 89 Vapotherm 40.00 95.00 01/05/21 05:00 84 35 100/53 93 Vapotherm 40.00 95.00 01/05/21 04:08 94 Vapotherm 40.00 95 01/05/21 04:00 82 33 96/63 93 Vapotherm 40.00 95.00 01/05/21 03:00 84 90/66 100 Vapotherm 40.00 95.00 01/05/21 02:21 91 Vapotherm 40.00 100 01/05/21 02:00 77 111/70 92 Vapotherm 40.00 95.00 01/05/21 01:30 80 39 100/52 Vapotherm 40.00 95.00 01/05/21 01:00 76 01/05/21 00:00 78 96/55 89 Vapotherm 40.00 95.00 01/04/21 23:30 Vapotherm 40.00 95.00 01/04/21 23:08 90 Vapotherm 40.00 95 01/04/21 23:00 82 34 96/48 94 Vapotherm 40.00 70.00 01/04/21 22:02 90 Vapotherm 40.00 80 01/04/21 22:00 82 104/52 Vapotherm 40.00 70.00 01/04/21 21:00 80 35 91/63 94 Vapotherm 40.00 70.00 01/04/21 20:00 86 36 112/57 Vapotherm 40.00 70.00 01/04/21 20:00 36.9 01/04/21 20:00 91 Vapotherm 40.00 80 01/04/21 19:00 89 01/04/21 19:00 84 33 111/55 93 Vapotherm 40.00 70.00 01/04/21 18:33 88 Vapotherm 40.00 80 01/04/21 18:00 81 34 91/60 93 Vapotherm 40.00 70.00 01/04/21 17:00 82 30 99/56 91 Vapotherm 40.00 70.00 01/04/21 16:00 83 99/49 87 Vapotherm 40.00 70.00 01/04/21 16:00 92 Vapotherm 40.00 70 01/04/21 16:00 36.3 01/04/21 15:00 90 27 99/57 92 Vapotherm 40.00 70.00 01/04/21 14:00 81 11 116/69 92 Vapotherm 35.00 65.00 01/04/21 13:00 82 20 113/63 91 Vapotherm 35.00 65.00 01/04/21 12:20 79 01/04/21 12:00 92 Vapotherm 40.00 70 01/04/21 12:00 79 38 108/58 93 Vapotherm 35.00 65.00 01/04/21 11:36 36.6 01/04/21 11:00 80 25 100/49 96 Vapotherm 35.00 65.00 01/04/21 10:33 88 Vapotherm 40.00 100 01/04/21 10:00 92 36 91/80 81 Vapotherm 35.00 65.00 I & O 01/05/21 07:00 Intake Total 725 ml Output Total 1700 ml Balance -975 ml Height & Weight Height: '" Weight: lbs. oz. kg; 35.09 BMI Method: General Appearance: Anxious, Chronically ill, Moderate Distress, Obese HEENT: Normal ENT Inspection Neck: Normal Inspection, Limited Range of Motion Respiratory: Accessory Muscle Use, Decreased Breath Sounds Cardiovascular: Regular Rate, Rhythm Capillary Refill: Less Than 3 Seconds Extremity: Pedal Edema Neurologic/Psychiatric: Alert, Oriented x3, No Motor/Sensory Deficits, Normal Mood/Affect Skin: Normal Color, Warm/Dry Results Lab Laboratory Tests 01/04/21 04:24 01/05/21 05:45 Assessment/Plan Assessment/Plan (Tele-ICU Physician , Progress Note ) Available chart/ vitals / labs / Images reviewed Video assessment done using teleICU camera, rest of exam as per RN Discussed with RN , EXAM PER RN Events overnight : Afebrile I/O = neg Drips: Pressors: , hemodynamically stable Consultants: Hospital course: 01/01 - to ICU with Covid19 pneumonia requiring Vapotherm 01/05- VPT 40 L 95% A/P Acute and chronic hypoxic respiratory failure secondary to Covid pneumonia and underlying COPD - VT 40 L 95% - worse -prone position if able - conservative fluid strategy (aim for even or negative fluid balance [id number]-2/COVID-19 PNA ( - unvaccinated , DX -Dexamethasone IV 01/01 -Cytokine release syndrome s/p Tocilizumab 01/01 , ( Acyclovir for HSV/VZV prophylaxis after Tocilizumab- 30 days 400 po bid ) -Hypercoagulable state , DDIMER decreasing -> lovenox ppx dose , follow D dimer today - high risk with current CA Suspected superimposed bact PNA -empiric abx started on 01/01 cefepime , Vanco Cx sputum pending Diabetes Mellitus - ISS , close f/up on steroids - added levemir transaminitis likely due to COVID-19. - monitor Advanced COPD - requiring 5 L of home oxygen - nebs, steroids Stage IV lung cancer adenocarcinoma -status post 1 cycle of chemotherapy Urine cx - Hafnia alvei DNI status but wants in case needed CPR and electrical shocks. Lines : port (Central Line Necessity Reviewed) Valente: + OG: Nutrition: poor Po intake Analgesia: Anxiety/ delirium VTE Prophylaxis: lovenox Stress Ulcer Prophylaxis: PPi Plans in collaboration with bedside consultants and IM MDs. Discussed with RN to reach out if any questions or concerns A total of 33 minutes of critical care time was devoted to this patient today, required to treat and/or prevent further deterioration of critical care condition ( as above) . ABHIJIT STAFFORD MD Jan 05, 2021 09:50
[2021-01-05] MEDS: CHLORASEPTIC LOZENGE MM PRN (13:58)
[2021-01-05] MEDS: LACTATED RINGERS 1,000 ML IV SCH (22:25)
[2021-01-06] MEDS: CHLORASEPTIC LOZENGE MM PRN (02:46)
[2021-01-06] MEDS: RT-ALBUTEROL HFA 8.5 GM INHALER IH SCH ×6 (02:55→22:55)
[2021-01-06 04:19] LABS: BASOPHILS % (AUTO) 0 % (0-10); EOSINOPHILS % (AUTO) 0 % (0-10); HEMATOCRIT 41 % (35-52); HEMOGLOBIN 13.1 g/dL (11.5-16.0); LYMPHOCYTES # (AUTO) 0.9 10^3/uL (1.0-4.0); LYMPHOCYTES % (AUTO) 11 % (12-44); MEAN CORPUSCULAR HEMOGLOBIN 28 pg (25-34); MEAN CORPUSCULAR HGB CONC 32 g/dL (32-36); MEAN CORPUSCULAR VOLUME 87 fL (80-99); MEAN PLATELET VOLUME 10.7 fL (9.0-12.2); MONOCYTES # (AUTO) 0.4 10^3/uL (0.0-1.0); MONOCYTES % (AUTO) 5 % (0-12); NEUTROPHILS # (AUTO) 7.1 10^3/uL (1.8-7.8); NEUTROPHILS % (AUTO) 82 % (42-75); PLATELET COUNT 322 10^3/uL (130-400); WHITE BLOOD COUNT 8.6 10^3/uL (4.3-11.0)
[2021-01-06 04:35] LABS: ALBUMIN 3.2 GM/DL (3.2-4.5)
[2021-01-06 04:36] LABS: POTASSIUM 3.8 MMOL/L (3.6-5.0)
[2021-01-06 04:37] LABS: CALCIUM 8.4 MG/DL (8.5-10.1)
[2021-01-06 04:38] LABS: TOTAL PROTEIN 5.7 GM/DL (6.4-8.2)
[2021-01-06 04:40] LABS: BILIRUBIN,TOTAL 0.4 MG/DL (0.1-1.0)
[2021-01-06] MEDS: POTASSIUM CL 10MEQ/50ML IVPB 50 ML IV SCH (04:40)
[2021-01-06] MEDS: KCL 20 MEQ TAB (K-DUR) PO SCH (04:40)
[2021-01-06 04:42] LABS: CREATININE SERUM 0.92 MG/DL (0.60-1.30)
[2021-01-06 04:44] LABS: MAGNESIUM 1.9 MG/DL (1.6-2.4)
[2021-01-06] MEDS: MAGNESIUM 1 GM/100 ML IVPB 100 ML IV SCH (04:49)
[2021-01-06] MEDS: CEFEPIME 1,000 MG/NS 50 ML IVPB IV SCH ×8 (06:17→18:28)
[2021-01-06] MEDS: inSUlin ASPART (NovoLOG) 1 UNIT/0.01 ML (CHARGE PER UNIT) SC SCH ×5 (06:17→21:29)
[2021-01-06] MEDS: ACYCLOVIR 400 MG TABLET (ZOVIRAX) PO SCH ×2 (09:12→18:25)
[2021-01-06] MEDS: ENOXAPARIN 40 MG/0.4 ML (LOVENOX) SYR SC SCH (09:12)
[2021-01-06] MEDS: PANTOPRAZOLE 40 MG (PROTONIX) TAB PO SCH (09:12)
--- NOTE | 2021-01-06 10:23 | Tele-ICU Progress Note ---
Subjective Date Seen by a Provider: Jan 06, 2021 Time Seen by a Provider: 10:22 Sepsis Event Evaluation Height, Weight, BMI Height: '" Weight: lbs. oz. kg; 35.09 BMI Method: Exam Exam Patient acknowledged, consented, and participated in this virtual visit which was conducted using real time audio/video Vital Signs Date Time Temp Pulse Resp B/P (MAP) Pulse Ox O2 Delivery O2 Flow Rate FiO2 01/06/21 09:00 98 104/58 88 Vapotherm 40.00 100.00 01/06/21 08:22 36.3 01/06/21 08:00 99 114/79 95 Vapotherm 40.00 100.00 01/06/21 07:11 89 Vapotherm 40.00 100 01/06/21 07:00 93 116/65 90 Vapotherm 40.00 100.00 01/06/21 07:00 89 01/06/21 06:00 94 117/59 87 Vapotherm 40.00 100.00 01/06/21 05:00 97 119/58 86 Vapotherm 40.00 100.00 01/06/21 04:00 39.9 Vapotherm 40.00 100.00 01/06/21 04:00 87 Vapotherm 40.00 100 01/06/21 04:00 88 107/58 91 Vapotherm 40.00 100.00 01/06/21 03:00 96 113/61 95 Vapotherm 40.00 100.00 01/06/21 02:56 89 Vapotherm 40.00 100 01/06/21 02:00 89 104/60 85 Vapotherm 40.00 100.00 01/06/21 01:00 90 103/53 90 Vapotherm 40.00 100.00 01/06/21 01:00 90 01/06/21 00:00 36.8 89 Vapotherm 40.00 100.00 01/06/21 00:00 91 104/61 87 Vapotherm 40.00 100.00 01/05/21 23:11 87 Vapotherm 40.00 100 01/05/21 23:00 93 99/57 87 Vapotherm 40.00 100.00 01/05/21 22:21 87 Vapotherm 40.00 100 01/05/21 22:00 86 106/92 90 Vapotherm 40.00 100.00 01/05/21 21:00 36.7 90 Vapotherm 40.00 100.00 01/05/21 21:00 90 109/71 93 Vapotherm 40.00 100.00 01/05/21 20:00 86 100/49 84 Vapotherm 40.00 80.00 01/05/21 20:00 95 Vapotherm 40.00 80 01/05/21 20:00 36.7 95 Vapotherm 40.00 80.00 01/05/21 19:00 89 118/60 94 Vapotherm 40.00 80.00 01/05/21 19:00 89 01/05/21 18:34 92 Vapotherm 40.00 80 01/05/21 18:00 93 94/49 96 Vapotherm 40.00 100.00 01/05/21 17:00 90 32 114/67 93 Vapotherm 40.00 95.00 01/05/21 16:00 90 110/64 90 Vapotherm 40.00 95.00 01/05/21 16:00 91 Vapotherm 40.00 100 01/05/21 15:57 37.1 01/05/21 15:12 86 Vapotherm 40.00 100 01/05/21 15:00 89 30 105/65 90 Vapotherm 40.00 95.00 01/05/21 14:00 91 20 111/66 90 Vapotherm 40.00 95.00 01/05/21 13:00 91 32 101/50 94 Vapotherm 40.00 95.00 01/05/21 12:31 89 01/05/21 12:00 91 Vapotherm 40.00 100 01/05/21 12:00 89 33 120/66 91 Vapotherm 40.00 95.00 01/05/21 11:59 37.6 01/05/21 11:00 86 25 106/62 90 Vapotherm 40.00 95.00 01/05/21 10:30 90 Vapotherm 40.00 100 I & O 01/06/21 07:00 Intake Total 1170 ml Output Total 1025 ml Balance 145 ml Height & Weight Height: '" Weight: lbs. oz. kg; 35.09 BMI Method: General Appearance: No Apparent Distress, WD/WN, Anxious, Chronically ill HEENT: Normal ENT Inspection Neck: Normal Inspection, Limited Range of Motion Respiratory: No Accessory Muscle Use, No Respiratory Distress, Decreased Breath Sounds Cardiovascular: Regular Rate, Rhythm Capillary Refill: Less Than 3 Seconds Extremity: Pedal Edema Neurologic/Psychiatric: Alert, Oriented x3, No Motor/Sensory Deficits, Normal Mood/Affect Skin: Normal Color, Warm/Dry Results Lab Laboratory Tests 01/05/21 05:45 01/06/21 03:57 Assessment/Plan Assessment/Plan (Tele-ICU Physician , Progress Note ) Available chart/ vitals / labs / Images reviewed Video assessment done using teleICU camera, rest of exam as per RN Discussed with RN , EXAM PER RN Events overnight : FEBRILE 39.9 I/O = even Drips: Pressors: , hemodynamically stable Consultants: Hospital course: 01/01 - to ICU with Covid19 pneumonia requiring Vapotherm 01/05- VPT 40 L 95% 01/06 - VT 40 L 100 % A/P Acute and chronic hypoxic respiratory failure secondary to Covid pneumonia and underlying COPD - VT 40 L 100% - worsening every day DNI status but wants in case needed CPR and electrical shocks. CONSIDER ANXIETY TX AND SMALL DOSE OF MORPHINE PO FOR DYSPNEA patient is refusing NIPPV BOSY-Zefebeewgay-1/COVID-19 PNA ( - unvaccinated , DX -Dexamethasone IV 01/01 -Cytokine release syndrome s/p Tocilizumab 01/01 , ( Acyclovir for HSV/VZV prophylaxis after Tocilizumab- 30 days 400 po bid ) -Hypercoagulable state , DDIMER decreasing -> lovenox ppx dose , follow D dimer today - high risk with current CA - WILL ORDER for tomorrow Suspected superimposed bact PNA -empiric abx started on 01/01 cefepime - current , Vanco off Cx sputum nor collected - will repeat PCT and sputum cx and CXR GIVEN NEW FEVER Diabetes Mellitus - ISS , close f/up on steroids - added levemir transaminitis likely due to COVID-19. - monitor Advanced COPD - requiring 5 L of home oxygen - nebs, steroids Stage IV lung cancer adenocarcinoma -status post 1 cycle of chemotherapy Urine cx - Hafnia alvei Lines : port (Central Line Necessity Reviewed) Valente: + OG: Nutrition: poor Po intake Analgesia: Anxiety/ delirium VTE Prophylaxis: lovenox Stress Ulcer Prophylaxis: PPi Plans in collaboration with bedside consultants and IM MDs. Discussed with RN to reach out if any questions or concerns A total of 33 minutes of critical care time was devoted to this patient today, required to treat and/or prevent further deterioration of critical care condition ( as above) . ABHIJIT STAFFORD MD Jan 06, 2021 10:23
--- NOTE | 2021-01-06 12:55 | Progress Note - Hospitalist ---
Subjective HPI/CC On Admission Date Seen by Provider: Jan 06, 2021 Time Seen by Provider: 11:00 This is a 65-year-old unvaccinated white female with a history of stage III-IV non small cell lung cancer per her history. She completed her first round of chemotherapy 3 weeks ago and is scheduled for her next round in 1 week. She had been doing fairly well on 5 L of oxygen which she has been on since last September. Yesterday she began to feel ill and had no symptoms other than increased somnolence. Her brought her to the emergency room where she was found to be Covid positive with infiltrates throughout the left lung and less infiltrates in the right. She was hypoxic and requiring Vapotherm to oxygenate. I have discussed her case with Fernandez our pharmacist who agrees with using Actemra at this time and it is without contraindication considering the severity of her disease. The emergency room physician had a long talk with the patient and she requests to not be intubated but that CPR be pursued. At the time of my interview this morning she is feeling better than she had. She does not have a productive cough that is new or any other symptoms that she is aware of. Discussed with Dr. Garcia who agrees with steroids and there is no contraindication to Actemra. Subjective/Events-last exam Patient on max Vapotherm Asked me if she was going to I told her I could not predict Could not tolerate BiPAP Review of Systems Pulmonary: Dyspnea, Cough Objective Exam Vital Signs Vital Signs Date Time Temp Pulse Resp B/P (MAP) Pulse Ox O2 Delivery O2 Flow Rate FiO2 01/07/21 01:00 104 74/56 77 Vapotherm 40.00 100.00 01/06/21 23:59 100 01/06/21 23:00 22 01/06/21 20:22 37.2 Capillary Refill : Less Than 3 Seconds General Appearance: No Apparent Distress, WD/WN, Anxious, Chronically ill Respiratory: Accessory Muscle Use, Decreased Breath Sounds Cardiovascular: Regular Rate, Rhythm Neurologic/Psychiatric: Alert, Oriented x3 Results/Procedures Lab Patient resulted labs reviewed. 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
[2021-01-06] MEDS: NOREPINEPHRINE 8 MG/250 ML 250 ML IV SCH (14:16)
[2021-01-06] MEDS: ALPRAZolam 0.25 MG (XANAX) TAB PO PRN ×2 (15:33→19:48)
[2021-01-06] MEDS: LACTATED RINGERS 1,000 ML IV SCH (19:48)
[2021-01-06 20:22] VITALS: BP_SYST 104; BP_SYST 94; BP_DIAS 51; BP_DIAS 58
--- NOTE | 2021-01-07 03:22 | ED CPR ---
HPI-CPR General Chief Complaint: Respiratory Problems Stated Complaint: COVID 19,ACUTE ON CHRONIC RESP FAILURE W/HYPOXIA Nursing Triage Note: TO ED VIA POV AND TO ROOM 7 VIA W/C. PT WEARS O2 AT 4L HOME USE AND IS VERY SOA AND LABORED ON ARRIVAL. PT STATES THIS IS NORMAL BREATHING FOR HER. STATES HAS HAD FEVER FOR LAST 2 DAYS AND BEEN VERY TIRED. LAST TOOK TYLENOL YESTERDAY WITH HIGHEST TEMPERATURE 102. PT HAS LUNG CANCER AND STATES HAD RECENT PORT PLACEMENT WITH FIRST CHEMO 12/13/20 AND NEXT CHEMO 12/25/20. Sepsis Screen: No Definite Risk Source of Information: RN/MD Exam Limitations: Physical Impairments History of Present Illness Date Seen by Provider: Jan 07, 2021 Time Seen by Provider: 01:45 Initial Comments Called to ICU room 1 for CODE BLUE. Found patient with CPR in progress, chest compressions, respirations assisted by BVM. Patient history of lung cancer and Covid pneumonia. Has been maxed on Vapotherm. Patient reportedly had been becoming hypotensive all day increasingly agitated. Her nurse had walked into her ICU room and found that she had removed all of her oxygen and monitoring equipment, her heart rate was in the 30s. Patient was unresponsive at the time of my arrival as stated with CPR in progress. Patient was a DO NOT INTUBATE. She did want CPR however. ACLS protocols followed, patient underwent 2 rounds of epinephrine, continued cardiac compressions without return of spontaneous circulation. An amp of bicarb was given. Patient was noticed to evolve into ventricular fibrillation. She was cardioverted x1 at 200 J. CPR was continued and a third round of epi was given. Patient converted to a rhythm that resembled atrial fibrillation with rapid ventricular response in the 140s to 160s. Return of spontaneous circulation was noted with a palpable carotid pulse. Patient continued to have respirations assisted by BVM. She was making no respiratory effort. Patient noted to convert after 3 or 4 minutes into a sinus tachycardia at a rate of 110. Blood pressures in the 60s to 70s systolic. Very difficult to obtain pulse oximetry at this time. It appeared to have her in the mid 70s while the patient was being bagged. Again the patient was a DO NOT INTUBATE. ICU nursing staff called family. After a long discussion with family they stated that respiratory support could stop. They were aware that if the patient was not being bagged and without her respiratory effort that the patient would . Plan of care communicated to team members. BVM respiratory support was discontinued. Patient maintained a pulse at about 100. No respiratory effort was observed. I then exited the room so that continued care could be carried on by her nursing staff. Witnessed Arrest: Yes Allergies and Home Medications Allergies Coded Allergies: No Known Drug Allergies (Unverified , 04/16/20) Patient Home Medication List Home Medication List Reviewed: Yes Albuterol Sulfate (Proair Hfa) 1 Puff Puff, 2 PUFF IH Q4H PRN for SHORTNESS OF BREATH, (Reported) Entered as Reported by: KATIE CARLSON on 04/29/20 1610 Last Action: Reviewed Ascorbic Acid (Vitamin C) 500 Mg Tablet, 500 MG PO DAILY, (Reported) Entered as Reported by: KATIE CARLSON on 01/03/211118 Last Action: Reviewed Cholecalciferol (Vitamin D3) (Vitamin D3) 50 Mcg Capsule, 50 MCG PO DAILY, (Reported) Entered as Reported by: KATIE CARLSON on 01/03/211118 Last Action: Reviewed Clonazepam (Clonazepam) 1 Mg Tablet, 1 MG PO BID PRN for ANXIETY, (Reported) Entered as Reported by: KATIE CARLSON on 01/03/211118 Last Action: Reviewed Cyanocobalamin (Vitamin B-12) (Vitamin B-12) 500 Mcg Lozenge, 500 MCG PO DAILY, (Reported) Entered as Reported by: PAULETTE BUENROSTRO on 04/16/20 2310 Last Action: Reviewed Dexamethasone (Dexamethasone) 4 Mg Tablet, 8 MG PO DAILY PRN for DAY BEFORE,OF,& AFTER CHEMO, (Reported) Entered as Reported by: KATIE CARLSON on 01/03/211118 Last Action: Reviewed Dulaglutide (Trulicity) 3 Mg/0.5 Ml Pen.injctr, 3 MG SQ MON, (Reported) Entered as Reported by: KATIE CARLSON on 01/03/211125 Last Action: Reviewed Gabapentin (Neurontin) 300 Mg Capsule, 300 MG PO DAILY PRN for PAIN- BREAKTHROUGH, (Reported) Entered as Reported by: KATIE CARLSON on 01/03/211118 Last Action: Reviewed Insulin Aspart (Novolog Flexpen) 300 Units/3 Ml Solution, 25 UNITS SQ TIDAC, (Reported) Entered as Reported by: GEGE BOSE on 12/07/201216 Last Action: Reviewed Insulin Detemir (Levemir Flextouch) 100 Unit/1 Ml Insuln.pen, 35 UNIT SQ BID, (Reported) Entered as Reported by: GEGE BOSE on 12/07/201216 Last Action: Reviewed Ipratropium/Albuterol Sulfate (Iprat-Albut 0.5-3(2.5) mg/3 ml) 3 Ml Ampul.neb, 3 ML IH Q4H PRN for SHORTNESS OF BREATH, (Reported) Entered as Reported by: KATIE CARLSON on 01/03/211118 Last Action: Reviewed Ondansetron (Ondansetron Odt) 8 Mg Tab.rapdis, 8 MG PO Q8H PRN for NAUSEA/VOMITING, (Reported) Entered as Reported by: GEGE BOSE on 12/07/201216 Last Action: Reviewed Pantoprazole Sodium (Pantoprazole Sodium) 40 Mg Tablet.dr, 40 MG PO DAILY, (Reported) Entered as Reported by: GEGE BOSE on 12/07/201216 Last Action: Reviewed Zinc (Zinc) 50 Mg Tablet, 50 MG PO DAILY, (Reported) Entered as Reported by: KATEI CARLSON on 01/03/211118 Last Action: Reviewed Discontinued Medications Budesonide/Formoterol Fumarate (Symbicort 80-4.5 Mcg Inhaler) 10.2 Gm Hfa.aer.ad, 1 PUFF IH BID, (Reported) Discontinued Reason: No Longer Taking Entered as Reported by: KATIE CARLSON on 04/29/20 1610 Last Action: Discontinued Dulaglutide (Trulicity) 1.5 Mg/0.5 Ml Pen.injctr, 1.5 MG SQ SUNDAY, (Reported) Discontinued Reason: Prescription changed Entered as Reported by: WILLIAMS GUALLPA on 04/19/20 1017 Last Action: Last Taken Edited Fluticasone/Salmeterol (Advair 500-50 Diskus) 1 Each Blst.w.dev, 1 EACH IH BID, (Reported) Discontinued Reason: No Longer Taking Entered as Reported by: GEGE BOSE on 12/07/201216 Last Action: Discontinued Ipratropium/Albuterol Sulfate (Iprat-Albut 0.5-3(2.5) mg/3 ml) 3 Ml Ampul.neb, 3 ML IH Q6H PRN for SHORTNESS OF BREATH Discontinued Reason: Duplicate Order Prescribed by: KOFI FLANAGAN on 05/05/20 1129 Last Action: Discontinued Metformin HCl (Metformin HCl) 1,000 Mg Tablet, 1,000 MG PO BID, (Reported) Discontinued Reason: No Longer Taking Entered as Reported by: GEGE BOSE on 12/07/20 1217 Last Action: Discontinued Review of Systems Review of Systems Constitutional: see HPI, chills, fever, malaise, weakness Past Ymnfyfm-Nzmgzz-Wpmqmo Hx Patient Social History Tobacco Use?: No Smoking Status: Former Smoker Use of E-Cig and/or Vaping dev: No Substance use?: No Alcohol Use?: No Pt feels they are or have been: No Immunizations Up To Date Influenza Vaccine Up-to-Date: No; Not Current COVID19 Vaccine Trim Operator: NO VAX Seasonal Allergies Seasonal Allergies: Yes Past Medical History Surgery/Hospitalization HX: LUNG CANCER Surgeries: Yes Abdominal, Adenoidectomy, Appendectomy, Hysterectomy, Tonsillectomy Respiratory: Yes (Obstructive lung disease, 5L ALL THE TIME) COPD Currently Using CPAP: No Currently Using BIPAP: No Cardiac: Yes High Cholesterol, Hypertension Neurological: Yes Neuropathy 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 oz. kg; 35.09 BMI Method: General Appearance: Chronically ill, Other (unresponsive, respirations assisted with BVM; no pulse - CPR in progress) HEENT: Other (pupils fixed) Respiratory: Other (respirations assisted with max O2 and BVM) Cardiovascular: Other (no palpable pulse) Gastrointestinal: Other (distended) Neurologic/Psychiatric: Other (unresponsive) Skin: Pallor Progress/Results/Core Measures Results/Orders Lab Results Laboratory Tests Test 01/01/21 04:27 01/01/21 04:30 01/01/21 05:20 Range/Units Blood Gas Puncture Site LEFT RADIAL Blood Gas Patient Temperature 102.5 Arterial Blood pH 7.39 7.37-7.43 Arterial Blood Partial Pressure CO2 34 L 35-45 MMHG Arterial Blood Partial Pressure O2 65 L 79-93 MMHG Arterial Blood HCO3 19 L 23-27 MMOL/L Arterial Blood Total CO2 20.2 L 21.0-31.0 MMOL/L Arterial Blood Oxygen Saturation 89 L 94-100 % Arterial Blood Base Excess -4.4 L -2.5-2.5 MMOL/L Audie Test YES-POS Blood Gas Ventilator Setting NO Blood Gas Inspired Oxygen 8L Influenza Type A (RT-PCR) Not Detected Not Detecte Influenza Type B (RT-PCR) Not Detected Not Detecte SARS-CoV-2 RNA (RT-PCR) Detected H Not Detecte Lab Scanned Report Referred Lab Report [id number] Micro Results Microbiology 01/01/21 Blood Culture - Final, Complete No growth Vital Signs/I&O Blood Pressure Mean: 62 FSBG Bedside Testing Finger Stick Blood Glucose: 250 Blood Glucose Action Taken: SEE NOTES Diagnostic Imaging Diagonstic Imaging: Xray Plain Films/CT/US/NM/MRI: chest Time of Consult: 05:10 Reviewed: Reviewed by Me Departure Impression Primary Impression: COVID-19 Additional Impression: Acute and chronic respiratory failure with hypoxia Disposition: ADMITTED INPATIENT Condition: Critical Admissions Decision to Admit Reason: Admit from ER (General) Decision to Admit/Date: Jan 01, 2021 Time/Decision to Admit Time: 05:05 Departure-Patient Inst. Referrals: [facility] (PCP) Primary Care Physician BRETT RICHARDSON APRN (Family) Primary Care Physician PRATIBHA CURRAN MD Jan 07, 2021 03:22
--- NOTE | 2021-01-07 06:39 | Discharge Summary ---
Discharge Summary Hospital Course Was the Problem List Reviewed?: Yes Problems/Dx: (1) COVID-19 Status: Acute (2) Acute and chronic respiratory failure with hypoxia Status: Acute (3) IDDM (insulin dependent diabetes mellitus) Status: Chronic (4) Elevated d-dimer Status: Acute (5) Cancer of left lung Status: Chronic Qualifiers: Qualified Codes: C34.92 - Malignant neoplasm of unspecified part of left bronchus or lung Hospital Course Date of Admission: Jan 01, 2021 at 05:20 Admission Diagnosis : Family Physician/Provider: Bette Jones Boring Machine Operator Double End Date of Discharge: 01/07/21 Discharge Diagnosis: Respiratory arrest, COVID-19 PNA, Lung cancer on palliative chemo Hospital Course: Standard course after admitted for COVID-19 PNA 3 weeks after starting palliative chemo for lung cancer. Patient progressed on Vapotherm and maintained DNI but compressions and ACLS meds ok. She was found unresponsive with HR 30 and O2 sat unmeasurable and caused cardiac arrest and code blue was initiated until futility assessed and patient was pronounced . Labs and Pending Lab Test: Laboratory Tests 01/06/21 11:02: Glucometer 193H 01/06/21 15:32: Glucometer 250H 01/06/21 19:53: Glucometer 222H 01/07/21 02:04: Glucometer 232H Microbiology 01/01/21 MRSA Screen - Final, Complete MRSA not isolated 01/01/21 Urine Culture - Final, Complete Hafnia alvei 01/01/21 Blood Culture - Final, Complete No growth Home Meds Active Reported Trulicity (Dulaglutide) 3 Mg/0.5 Ml Pen.injctr 3 Mg SQ MON Clonazepam 1 Mg Tablet 1 Mg PO BID PRN Vitamin C (Ascorbic Acid) 500 Mg Tablet 500 Mg PO DAILY Zinc 50 Mg Tablet 50 Mg PO DAILY Dexamethasone 4 Mg Tablet 8 Mg PO DAILY PRN TAKES 2 (4MG) TABS Vitamin D3 (Cholecalciferol (Vitamin D3)) 50 Mcg Capsule 50 Mcg PO DAILY Neurontin (Gabapentin) 300 Mg Capsule 300 Mg PO DAILY PRN Iprat-Albut 0.5-3(2.5) mg/3 ml (Ipratropium/Albuterol Sulfate) 3 Ml Ampul.neb 3 Ml IH Q4H PRN Pantoprazole Sodium 40 Mg Tablet.dr 40 Mg PO DAILY Ondansetron Odt (Ondansetron) 8 Mg Tab.rapdis 8 Mg PO Q8H PRN Levemir Flextouch (Insulin Detemir) 100 Unit/1 Ml Insuln.pen 35 Unit SQ BID Novolog Flexpen (Insulin Aspart) 300 Units/3 Ml Solution 25 Units SQ TIDAC Proair Hfa (Albuterol Sulfate) 1 Puff Puff 2 Puff IH Q4H PRN Vitamin B-12 (Cyanocobalamin (Vitamin B-12)) 500 Mcg Lozenge 500 Mcg PO DAILY Assessment/Pt Instructions Discharge Planning: <30 minutes discharge planning Discharge Physical Examination Vital Signs Vital Signs Date Time Temp Pulse Resp B/P (MAP) Pulse Ox O2 Delivery O2 Flow Rate FiO2 01/07/21 02:00 170 78/47 Vapotherm 40.00 100.00 01/07/21 01:00 77 01/06/21 23:59 100 01/06/21 23:00 22 01/06/21 20:22 37.2 Allergies: Coded Allergies: No Known Drug Allergies (Unverified , 04/16/20) Discharge Summary Date of Admission Jan 01, 2021 at 05:20 Date of Discharge Admission Diagnosis Acute on chronic respiratory failure Covid positive Cancer of the lung Type 2 diabetes on insulin Plan for Actemra, Decadron, respiratory toilet, DVT prophylaxis-prognosis is very guarded Discharge Diagnosis Assessment: Acute hypoxic respiratory failure COVID-19 pneumonia 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
--- NOTE | 2021-01-07 07:44 | Tele-ICU Progress Note ---
Subjective Date Seen by a Provider: Jan 07, 2021 Subjective/Events-last exam Still on hi true oxygen 40 lpm FiO2 100%, last CXR from 01/02 showed extensive opacities in both lungs remains on IV cefepime for suspected PNA, also IV Decadron 10 mg/d, has gotten Tozilizmab, once a day Lovenox Sepsis Event Evaluation Height, Weight, BMI Height: '" Weight: lbs. oz. kg; 35.09 BMI Method: Exam Exam Patient acknowledged, consented, and participated in this virtual visit which was conducted using real time audio/video Vital Signs Date Time Temp Pulse Resp B/P (MAP) Pulse Ox O2 Delivery O2 Flow Rate FiO2 01/07/21 02:00 170 78/47 Vapotherm 40.00 100.00 01/07/21 01:00 104 74/56 77 Vapotherm 40.00 100.00 01/07/21 01:00 104 01/07/21 00:00 113 74/43 Vapotherm 40.00 100.00 01/06/21 23:59 82 Vapotherm 40.00 100 01/06/21 23:00 104 22 112/60 86 Vapotherm 40.00 100.00 01/06/21 22:55 87 Vapotherm 40.00 100 01/06/21 22:00 99 14 82/48 85 Vapotherm 40.00 100.00 01/06/21 21:00 92 82/57 85 Vapotherm 40.00 100.00 01/06/21 20:22 37.2 98 88 100 01/06/21 20:00 87 Vapotherm 40.00 100 01/06/21 20:00 98 20 99/69 90 Vapotherm 40.00 100.00 01/06/21 19:00 109 29 114/83 93 Vapotherm 40.00 100.00 01/06/21 19:00 109 01/06/21 19:00 32 114/83 80 01/06/21 18:45 109 25 89 01/06/21 18:31 96 Vapotherm 40.00 100 01/06/21 18:30 105 27 97 Vapotherm 40.00 100.00 01/06/21 18:15 Vapotherm 40.00 100.00 01/06/21 18:00 105 94/74 90 Vapotherm 40.00 100.00 01/06/21 17:45 101 24 87 Vapotherm 40.00 100.00 01/06/21 17:30 20 Vapotherm 40.00 100.00 01/06/21 17:15 99 21 Vapotherm 40.00 100.00 01/06/21 17:00 Vapotherm 40.00 100.00 01/06/21 17:00 31 128/94 80 01/06/21 16:00 87 Vapotherm 40.00 100 01/06/21 16:00 93 36 121/69 93 Vapotherm 40.00 100.00 01/06/21 15:35 36.6 01/06/21 15:17 88 Vapotherm 40.00 100 01/06/21 15:00 97 24 122/71 89 Vapotherm 40.00 100.00 01/06/21 14:00 98 43 111/58 90 Vapotherm 40.00 100.00 01/06/21 13:00 99 33 123/59 91 Vapotherm 40.00 100.00 01/06/21 13:00 101 01/06/21 12:00 37.2 01/06/21 12:00 99 35 130/69 91 Vapotherm 40.00 100.00 01/06/21 12:00 87 Vapotherm 40.00 100 01/06/21 11:00 98 37 110/73 91 Vapotherm 40.00 100.00 01/06/21 10:00 92 22 125/61 97 Vapotherm 40.00 100.00 01/06/21 10:00 89 Vapotherm 40.00 100 01/06/21 09:00 87 Vapotherm 40.00 100 01/06/21 09:00 98 104/58 88 Vapotherm 40.00 100.00 01/06/21 08:22 36.3 01/06/21 08:00 99 114/79 95 Vapotherm 40.00 100.00 I & O 01/07/21 07:00 Intake Total 740 ml Output Total 625 ml Balance 115 ml Height & Weight Height: '" Weight: lbs. oz. kg; 35.09 BMI Method: General Appearance: No Apparent Distress, WD/WN, Anxious, Chronically ill HEENT: Other (pupils fixed) Neck: Normal Inspection, Limited Range of Motion Respiratory: Accessory Muscle Use, Decreased Breath Sounds Cardiovascular: Regular Rate, Rhythm Capillary Refill: Less Than 3 Seconds Extremity: Pedal Edema Neurologic/Psychiatric: Alert, Oriented x3 Skin: Pallor Results Lab Laboratory Tests 01/06/21 03:57 Assessment/Plan Assessment/Plan Acute and chronic hypoxic respiratory failure secondary to Covid pneumonia and underlying COPD - VT 40 L 100% - worsening every day DNI status but wants in case needed CPR and electrical shocks. 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 - monitor Advanced COPD - requiring 5 L of home oxygen, now on 40 lpm hi true, FiO2 100% - nebs, steroids Stage IV lung cancer adenocarcinoma -status post 1 cycle of chemotherapy Urine cx - Hafnia alvei Critical Care: Critically Ill Patient KATIE MUNOZ MD Jan 07, 2021 07:44
[2021-01-07] MEDS ORDERED: EPINEPHrine 0.1 MG/ML 10 ML (HOSPIRA) SYR IJ ONE (09:56)
== END 2021-01-07 10:08 | disposition expired | DRG 177 ==
LOC: EDUNIT# 04:02 → ER 04:06 → ICU 05:20
PROVIDERS: ADMIT Internal Medicine; ATTEND Internal Medicine
PROC: XW033H5 Introduction of Tocilizumab into Peripheral Vein, Percutaneous Approach, New Technology Group 5 (ICD-10-PCS; principal; 2021-01-01)
PROC: 5A12012 Performance of Cardiac Output, Single, Manual (ICD-10-PCS; 2021-01-07)
DX: U07.1 COVID-19 (principal); J12.82 Pneumonia due to coronavirus disease 2019; J96.21 Acute and chronic respiratory failure with hypoxia; J15.9 Unspecified bacterial pneumonia; C34.92 Malignant neoplasm of unspecified part of left bronchus or lung; N17.9 Acute kidney failure, unspecified; J44.0 Chronic obstructive pulmonary disease with (acute) lower respiratory infection; C78.01 Secondary malignant neoplasm of right lung; R09.2 Respiratory arrest; I49.01 Ventricular fibrillation; E78.00 Pure hypercholesterolemia, unspecified; I10 Essential (primary) hypertension; E11.40 Type 2 diabetes mellitus with diabetic neuropathy, unspecified; R19.7 Diarrhea, unspecified; F41.9 Anxiety disorder, unspecified; Z79.4 Long term (current) use of insulin; Z86.718 Personal history of other venous thrombosis and embolism; Z79.84 Long term (current) use of oral hypoglycemic drugs; Z86.711 Personal history of pulmonary embolism
CPT/HCPCS: 36415; 51702; 71045; 80053; 81000; 82805; 82947; 83605; 83735; 84145; 84484; 85025; 85379; 85610; 85730; 86141; 87040; 87077; 87081; 87088; 87186; 87449; 87636; 94640; 96361; 96365; 96367; 96368; 99291